=== PATIENT | male | born 1995 | race Caucasian/White ===

== ENCOUNTER 2016-09-20 14:12 | Inpatient (IN) | payer OTHER ==
[~2016-09-20] VITALS: Ht 172.7 cm; Wt 62.0 kg
[~2016-09-20 14:12] MED LIST: FLO1 PO; HYDR5TAB PO; INSU100C SQ; LANT3I SC; LEVO50TA74 PO
[2016-09-20] MEDS ORDERED: SODIUM CHLORIDE 0.9% 1L BAG IV* STA (14:41)
[2016-09-20] MEDS ORDERED: HYDROCORTISONE 100 MG INJ IV ONE (15:30)
[2016-09-20] MEDS ORDERED: INSULIN REGULAR, HUMAN 100 UNIT/1 ML 3ML VIAL IV ONE (15:30)
--- NOTE | 2016-09-20 15:30 | RADRPT ---
PROCEDURE: XR Chest. CLINICAL INDICATION: Sepsis TECHNIQUE: Single AP view of the chest were obtained COMPARISON: 08/13/2016 FINDINGS: The heart and mediastinum are within normal limits. The pulmonary vasculature are unremarkable. The aorta is unremarkable. There is no lung consolidation, pleural effusion or pneumothorax. There i s no acute osseous abnormality. IMPRESSION: No acute disease. RPTAT: AA .Kevin Rose MD, Date Time Electronically viewed and signed by .Kevin Rose MD, MD on 09/20/2016 15:30 .J/
[2016-09-20 15:33] LABS: BASOPHILS % 0.4 % (0.0-2.0); EOSINOPHILS # 0.3 10^3/ul (0.0-0.5); EOSINOPHILS % 3.7 % (0.0-7.0); HEMOGLOBIN 13.8 g/dl (14.0-18.0); LYMPHOCYTES # 2.3 10^3/ul (0.8-2.9); LYMPHOCYTES % 25.6 % (15.0-51.0); MEAN CORPUSCULAR HEMOGLOBIN 29.5 pg (29.0-33.0); MEAN CORPUSCULAR HGB CONC 33.6 g/dl (32.0-37.0); MEAN CORPUSCULAR VOLUME 87.6 fl (82.0-101.0); MEAN PLATELET VOLUME 10.7 fl (7.4-10.4); MONOCYTE # 0.7 10^3/ul (0.3-0.9); MONOCYTES % 7.9 % (0.0-11.0); NEUTROPHIL # 5.5 10^3/ul (1.6-7.5); NEUTROPHILS % 62.4 % (39.0-77.0); PLATELET COUNT 186 10^3/UL (140-440); RED BLOOD COUNT 4.68 10^6/ul (4.70-6.10); RED CELL DISTRIBUTION WIDTH 13.4 % (11.5-14.5); UNCORRECTED WBC 8.8 10^3/ul (4.8-10.8); WHITE BLOOD COUNT 8.8 10^3/ul (4.8-10.8)
[2016-09-20 15:35] LABS: INR 1.06; PROTIME 13.8 Sec (12.2-14.2); PT RATIO 1.1
[2016-09-20 15:36] LABS: PARTIAL THROMBOPLASTIN TIME 36.4 Sec (25.0-35.0)
[2016-09-20 15:41] LABS: CONDITION 1
[2016-09-20 15:45] LABS: ALBUMIN 4.6 g/dl (3.3-4.9)
[2016-09-20 15:46] LABS: CHLORIDE 97 mmol/L (97-110); POTASSIUM 4.6 mmol/L (3.5-5.1); SODIUM 137 mmol/L (135-144)
[2016-09-20 15:48] LABS: ALANINE AMINOTRANSFERASE 22 IU/L (13-69); ALBUMIN/GLOBULIN RATIO 1.21; ALKALINE PHOSPHATASE 99 IU/L (42-121); ANION GAP 28 (8-16); ASPARTATE AMINO TRANSFERASE 27 IU/L (15-46); BILIRUBIN,INDIRECT 0.7 mg/dl (0-1.1); BILIRUBIN,TOTAL 0.7 mg/dl (0.2-1.3); BLOOD UREA NITROGEN 27 mg/dl (7-20); CARBON DIOXIDE 17 mmol/L (21-31); CREATININE 1.11 mg/dl (0.61-1.24); TOTAL PROTEIN 8.4 g/dl (6.1-8.1)
[2016-09-20 15:49] LABS: CALCIUM 11.3 mg/dl (8.4-10.2); GLUCOSE 225 mg/dl (70-220)
[2016-09-20 16:04] LABS: TROPONIN-I < 0.010 ng/ml (0.00-0.12)
[2016-09-20 16:13] LABS: ADD UMIC NO; URINE BILIRUBIN (Dip) 1+ (NEGATIVE); URINE BLOOD (Dip) NEGATIVE (NEGATIVE); URINE COLOR LT. YELLOW (YELLOW); URINE GLUCOSE (Dip) NEGATIVE (NEGATIVE); URINE KETONES (Dip) 3+ (NEGATIVE); URINE LEUKOCYTE ESTERASE (Dip) NEGATIVE (NEGATIVE); URINE NITRITE (Dip) NEGATIVE (NEGATIVE); URINE TOTAL PROTEIN (Dip) NEGATIVE (NEGATIVE); URINE UROBILINOGEN (Dip) 0.2 E.U./dL (0.1-1.0)
[2016-09-20 16:25] LABS: AADO2 Arterial 1.5 mmHg (7.0-24.0); Allen Test ACCEPTAB; Arterial Base Excess -10.4 mmol/L (-3.0-3); Arterial COHb 0.3 % (0.0-3.0); Arterial Fraction of Oxyhgb 96.7 % (93.0-99.0); Arterial HCO3 15.3 mmol/L (22.0-26.0); Arterial MetHb 0.1 % (0.0-1.5); Arterial Total Hemglobin 12.2 g/dl (12.0-18.0); MODE ROOM AIR
[2016-09-20 16:28] LABS: ICTOTEST NEGATIVE (NEGATIVE)
--- NOTE | 2016-09-20 16:53 | ERA ---
ER Documentation Chief Complaint Date/Time DATE: 09/20/16 TIME: 16:53 Chief Complaint NAUSEA AND VOMITING X3 DAYS, ELEVATED BS, WEAKNESS, ABD PAIN HPI Patient is a 21-year-old male who has a history of Ashmore's disease and type 1 diabetes. Over the last 2 days he has had nausea, vomiting, elevated blood sugar. He has been unable to keep anything down including fluids. Mom states the last time he was like this he had DKA. He denies any fever, coughing, congestion, sore throat, otalgia, headache, dizziness, loss of consciousness, abdominal pain, diarrhea, dysuria, hematuria, abnormal rashes, abnormal bleeding , bruises. Nothing makes this better or worse. ROS All systems reviewed and are negative except as per history of present illness. Medications Home Meds Reported Medications Hydrocortisone* (Cortef*) 5 Mg Tab, 5 MG PO QID, #60 TAB 08/13/16 Levothyroxine Sodium* (Levothyroxine Sodium*) 50 Mcg Tablet, 50 MCG PO BEFORE BREAKFAST, #30 TAB 08/13/16 Insulin Lispro (Humalog) 100 Unit/1 Ml Cartridge, 7 UNIT SQ AC MEALS 08/13/16 Insulin Glargine* (Lantus*) 100 Unit/Ml Soln, 18 UNIT SC QAM, #1 VIAL 08/13/16 Discontinued Scripts Fludrocortisone Acetate (Florinef Acetate) 0.1 Mg Tablet, 0.1 MG PO QAM for 30 Days, #30 TAB 3 Refills Prov:JS EUCEDA MD 08/15/16 Allergies Allergies: Coded Allergies: No Known Allergy (Unverified , 09/20/16) PMhx/Soc History of Surgery: No Anesthesia Reaction: No Hx Neurological Disorder: No Hx Respiratory Disorders: No Hx Cardiac Disorders: No Hx Psychiatric Problems: No Hx Miscellaneous Medical Probl: Yes (DM, HYPOTHYROIDISM, Addisons disease) Hx Alcohol Use: No Hx Substance Use: No Hx Tobacco Use: No Smoking Status: Never smoker FmHx Family History: diabetes Physical Exam Vitals Vital Signs Date Time Temp Pulse Resp B/P Pulse Ox O2 Delivery O2 Flow Rate FiO2 09/20/16 17:00 98 22 95/53 100 Room Air 09/20/16 15:00 86 14 98/72 100 Room Air 09/20/16 14:17 97.5 101 18 98/67 99 Physical Exam Const: Well-developed well-nourished male lying on the bed appears ill but nontoxic Head: Atraumatic normocephalic Eyes: Normal Conjunctiva ENT: Normal External Ears, Nose and Mouth. Mucous membranes are dry Neck: Full range of motion..~ No meningismus. Resp: Clear to auscultation bilaterally Cardio: Regular rhythm, no murmurs, tachycardic Abd: Soft, non tender, non distended. Hypoactive bowel sounds Skin: No petechiae or rashes Back: No midline or flank tenderness Ext: No cyanosis, or edema Neur: Awake and alert oriented 3 Psych: Normal Mood and Affect Result Diagram: 09/20/16 1457 09/20/16 1635 Results 24 hrs Laboratory Tests Test 09/20/16 14:22 09/20/16 14:44 09/20/16 14:56 09/20/16 14:57 Bedside Glucose 232mg/dL 240mg/dL Arterial Blood HCO3 15.3mmol/L Arterial Blood Base Excess -10.4mmol/L Arterial Blood Oxygen Saturation 97.1mmHG Warner Test ACCEPTAB Arterial Blood Gas Puncture Site Right Radial Arterial Blood Carboxyhemoglobin 0.3% Arterial Blood Date Drawn 09/20/2016 4:17:23 PM Arterial Blood Methemoglobin 0.1% Arterial Blood pCO2 (Temp correct) 33.8mmhg Arterial Blood pH (Temp corrected) 7.275 Arterial Blood pO2 (Temp corrected) 107.8mmHG Blood Gas A-a O2 Differential 1.5mmHg Blood Gas Critical Value Read Back DR. BROWN Blood Gas Modality ROOM AIR Blood Gas Notified Time 09/20/2016 4:25:14 PM Blood Gas Notified Whom AT Blood Gas Specimen Source Blood arterial Blood Gas Temperature 37.0C FiO2 21.0% Oxyhemoglobin Percent 96.7% Total Hemoglobin 12.2g/dl Activated Partial Thromboplast Time 36.4Sec Alanine Aminotransferase (ALT/SGPT) 22IU/L Albumin 4.6g/dl Albumin/Globulin Ratio 1.21 Alkaline Phosphatase 99IU/L Anion Gap 28 Aspartate Amino Transf (AST/SGOT) 27IU/L Basophils # 0.010^3/ul Basophils % 0.4% Blood Morphology Comment Blood Urea Nitrogen 27mg/dl Calcium Level 11.3mg/dl Carbon Dioxide Level 17mmol/L Chloride Level 97mmol/L Creatinine 1.11mg/dl Direct Bilirubin 0.00mg/dl Eosinophils # 0.310^3/ul Eosinophils % 3.7% Globulin 3.80g/dl Glucose Level 225mg/dl Hematocrit 41.0% Hemoglobin 13.8g/dl INR International Normalized Ratio 1.06 Indirect Bilirubin 0.7mg/dl Lactic Acid Level 2.5mmol/L Lymphocytes # 2.310^3/ul Lymphocytes % 25.6% Mean Corpuscular Hemoglobin 29.5pg Mean Corpuscular Hemoglobin Concent 33.6g/dl Mean Corpuscular Volume 87.6fl Mean Platelet Volume 10.7fl Monocytes # 0.710^3/ul Monocytes % 7.9% Neutrophils # 5.510^3/ul Neutrophils % 62.4% Nucleated Red Blood Cells # 0.010^3/ul Nucleated Red Blood Cells % 0.0/100WBC Platelet Count 95015^3/UL Potassium Level 4.6mmol/L Prothrombin Time 13.8Sec Prothrombin Time Ratio 1.1 Red Blood Count 4.6810^6/ul Red Cell Distribution Width 13.4% Sodium Level 137mmol/L Total Bilirubin 0.7mg/dl Total Protein 8.4g/dl Troponin I < 0.010ng/ml White Blood Count 8.810^3/ul Test 09/20/16 15:39 09/20/16 16:30 09/20/16 16:35 09/20/16 16:39 Urine Bilirubin 1+ Urine Clarity CLEAR Urine Color LT. YELLOW Urine Glucose NEGATIVE% Urine Hemoglobin NEGATIVE Urine Ictotest NEGATIVE Urine Ketones 3+ Urine Leukocyte Esterase NEGATIVE Urine Nitrite NEGATIVE Urine Specific [place] 1.025 Urine Total Protein NEGATIVE Urine Urobilinogen 0.2 E.U./dL Urine pH 6.0 Lactic Acid Level 3.0mmol/L Anion Gap 26 Blood Urea Nitrogen 27mg/dl Calcium Level 11.1mg/dl Carbon Dioxide Level 17mmol/L Chloride Level 98mmol/L Creatinine 1.05mg/dl Glucose Level 219mg/dl Potassium Level 4.8mmol/L Sodium Level 136mmol/L Bedside Glucose 123mg/dL Current Medications Medications (Trade) Dose Ordered Sig/Carmina Route PRN Reason Start Time Stop Time Status Last Admin Dose Admin Sodium Chloride (NS) 1,920 ml BOLUS OVER 2 HOURS STAT IV* 09/20/16 14:41 09/20/16 14:43 DC 09/20/16 14:59 Hydrocortisone (Solu-Cortef) 100 mg ONCE ONCE IV 09/20/16 15:30 09/20/16 15:31 DC 09/20/16 15:59 Insulin Human Regular (Humulin R) 5 unit ONCE ONCE IV 09/20/16 15:30 09/20/16 15:31 DC 09/20/16 16:02 Procedures/MDM 1720: Patient appears to be feeling mildly improved. I will go ahead and consult his physician to admit him to the hospital Departure Diagnosis: Primary Impression: Nausea and vomiting Qualified Code: R11.2 - Non-intractable vomiting with nausea, unspecified vomiting type Additional Impressions: Adrenal insufficiency DKA (diabetic ketoacidoses) Qualified Code: E10.10 - Diabetic ketoacidosis without coma associated with type 1 diabetes mellitus Metabolic acidosis AIDA BROWN Sep 20, 2016 16:53
[2016-09-20 17:03] LABS: POTASSIUM 4.8 mmol/L (3.5-5.1)
[2016-09-20 17:05] LABS: CREATININE 1.05 mg/dl (0.61-1.24)
[2016-09-20 17:06] LABS: CALCIUM 11.1 mg/dl (8.4-10.2)
[2016-09-20] MEDS ORDERED: SOD CHLORIDE 0.9% 1,000 ML IV SCH (18:28)
[2016-09-20] MEDS: SOD CHLORIDE 0.9% 1,000 ML IV SCH (18:28)
[2016-09-20] MEDS ORDERED: DEXTROSE 50% 50 ML SYRINGE IV PRN ×2 (18:30)
[2016-09-20] MEDS ORDERED: NACL 0.9% 3 ML SYG IV SCH (18:30)
[2016-09-20] MEDS ORDERED: DOCUSATE SODIUM 100 MG CAP PO PRN (18:30)
[2016-09-20] MEDS ORDERED: LORAZEPAM 2 MG INJ IV PRN (18:30)
[2016-09-20] MEDS ORDERED: ALBUTEROL/IPRATROPIUM (NEB) 3 ML AMP HHN PRN (18:30)
[2016-09-20] MEDS ORDERED: NITROGLYCERIN (SL) 0.4 MG TAB SL PRN (18:30)
[2016-09-20] MEDS ORDERED: ACETAMINOPHEN 325 MG TAB PO PRN (18:30)
[2016-09-20] MEDS: ACCUCHECK XX SCH ×6 (18:30→23:56)
[2016-09-20] MEDS ORDERED: HYDROCODONE/APAP (5/325) TAB PO PRN (18:30)
[2016-09-20] MEDS ORDERED: hydrALAzine 20 MG INJ IV PRN (18:30)
[2016-09-20] MEDS ORDERED: morphine 2 MG INJ IV PRN (18:30)
[2016-09-20] MEDS ORDERED: POTASSIUM CHLORIDE 50 ML IVPB PRN (18:30)
[2016-09-20] MEDS ORDERED: NA PHOSPHATE/BIPHOS 133 ML ENEMA PR PRN (18:30)
[2016-09-20] MEDS ORDERED: ONDANSETRON 4 MG INJ IV PRN (18:30)
[2016-09-20] MEDS ORDERED: MAGNESIUM HYDROXIDE 30ML CUP PO PRN (18:30)
[2016-09-20] MEDS ORDERED: LACTATED RINGER'S 1,000 ML IV SCH (19:28)
[2016-09-20 19:45] LABS: POTASSIUM 4.5 mmol/L (3.5-5.1)
[2016-09-20 19:47] LABS: CREATININE 0.9 mg/dl (0.61-1.24)
[2016-09-20 19:48] LABS: CALCIUM 10.3 mg/dl (8.4-10.2)
[2016-09-20] MEDS: INSULIN REGULAR, HUMAN 100 UNIT in SOD CHLORIDE 0.9% 99 ML IV SCH ×6 (20:07→23:56)
[2016-09-20] MEDS: DEXTROSE 5%-0.9% NACL 1,000 ML IV SCH (20:08)
[2016-09-20] MEDS ORDERED: POTASSIUM CHLORIDE 10 MEQ in SOD CHLORIDE 0.9% 1,000 ML IV SCH (20:28)
[2016-09-20] MEDS: HYDROCORTISONE 5 MG TAB PO SCH (21:18)
[2016-09-20] MEDS: HEPARIN 5,000 UNIT/0.5 ML SYG SC SCH (21:18)
[2016-09-21] MEDS: ACCUCHECK XX SCH ×16 (00:30→15:30)
--- NOTE | 2016-09-21 00:49 | HP ---
DATE OF ADMISSION: 09/20/2016 TIME: 9:30 p.m. CHIEF COMPLAINT: Nausea, vomiting. HISTORY OF PRESENT ILLNESS: The patient is a 21-year-old male with a history of insulin-dependent d iabetes and Otoe's disease. The patient was diagnosed 1 year ago when he had an episode of DKA. The patient is on insulin normally. Patient began to feel nauseous, had several bouts of emesis, h as been feeling weak and tired , and had a hard time sleeping last night. His sugar was noted to be 400 at home. His mom did give him some insulin and brought to the ER, where his sugars were slight ly elevated at 225. He did have an anion gap acidosis and did have 3+ ketones in his urine. The pa dusty was started on insulin drip and so far he is feeling better. 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 PAST SURGICAL HISTORY: Denies. HOME MEDICATIONS: 1. Humalog 7 units with meals. 2. Cortef 5 mg q.i.d. 3. Lantus 18 units q.a.m. 4. Synthroid 50 before breakfast. ALLERGIES: NO KNOWN DRUG ALLERGIES. FAMILY HISTORY: Denies. SOCIAL HISTORY: Denies alcohol, tobacco, or drug abuse. REVIEW OF SYSTEMS: A 12-point review of systems negative except that discussed in HPI. PHYSICAL EXAMINATION: VITAL SIGNS: Temperature 97.5, pulse is 110, respiratory rate 16, BP is 110/65, saturation 100% on room air. GENERAL: In no acute distress, alert and oriented. HEENT: Normocephalic, atraumatic. LUNGS: Clear to auscultation. CARDIOVASCULAR: Tachycardic. ABDOMEN: Nondistended, nontender, soft. EXTREMITIES: No clubbing, cyanosis, or edema. LABORATORIES: White count is 8.8, hemoglobin 16.8, platelets 186,000. Chemistry: Sodium is 139, p otassium is 4.5, chloride is 105, anion gap is 23, BUN 22, creatinine is 0.9, glucose 104, calcium 7 .3. ABG: pH is 7.275, CO2 is 30.8, bicarbonate is 16.3. Urine 2+ ketones, otherwise normal. Ther e is also 1+ bilirubin. DIAGNOSTICS: Chest x-ray shows no acute disease. ASSESSMENT AND PLAN: 1. Diabetic ketoacidosis. The patient's sugars have improved, but he continues to have an anion ga p. Admit to ICU. Treat with insulin drip and IV fluids. Will give D5 NS once sugars are below 250 , and he has a persistent anion gap. Will get an endocrinology consultation. 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 3. Hypothyroidism. Continue home Synthroid. 4. Prophylaxis. Heparin. Dictated By: EVAN URRUTIA/KENTON Conf#: [id number] DID#: [id number]
[2016-09-21] MEDS: INSULIN REGULAR, HUMAN 100 UNIT in SOD CHLORIDE 0.9% 99 ML IV SCH ×2 (02:05)
[2016-09-21] MEDS: SOD CHLORIDE 0.9% 1,000 ML IV SCH (03:46)
[2016-09-21 06:01] LABS: BASOPHILS % 0.2 % (0.0-2.0); EOSINOPHILS # 0.1 10^3/ul (0.0-0.5); HEMOGLOBIN 10.9 g/dl (14.0-18.0); LYMPHOCYTES # 2.6 10^3/ul (0.8-2.9); LYMPHOCYTES % 28.7 % (15.0-51.0); MEAN CORPUSCULAR HGB CONC 35.1 g/dl (32.0-37.0); MEAN CORPUSCULAR VOLUME 85.7 fl (82.0-101.0); MEAN PLATELET VOLUME 9.8 fl (7.4-10.4); MONOCYTES % 10.9 % (0.0-11.0); NEUTROPHIL # 5.4 10^3/ul (1.6-7.5); NEUTROPHILS % 59.2 % (39.0-77.0); PLATELET COUNT 178 10^3/UL (140-440); RED BLOOD COUNT 3.62 10^6/ul (4.70-6.10); RED CELL DISTRIBUTION WIDTH 13.6 % (11.5-14.5); UNCORRECTED WBC 9.2 10^3/ul (4.8-10.8); WHITE BLOOD COUNT 9.2 10^3/ul (4.8-10.8)
[2016-09-21 06:10] LABS: POTASSIUM 4.1 mmol/L (3.5-5.1)
[2016-09-21 06:12] LABS: CREATININE 0.93 mg/dl (0.61-1.24)
[2016-09-21 06:13] LABS: CALCIUM 9.8 mg/dl (8.4-10.2); PHOSPHORUS 3.8 mg/dl (2.5-4.9)
[2016-09-21 06:14] LABS: MAGNESIUM 1.1 mg/dl (1.7-2.5)
[2016-09-21 06:15] LABS: CONDITION 1
[2016-09-21 06:18] LABS: CHOLESTEROL 70 mg/dl (100-200)
[2016-09-21 06:19] LABS: CHOL/HDL RATIO 2.8 RATIO; HDL CHOLESTEROL 25 mg/dl (30-63); TRIGLYCERIDES 52 mg/dl (0-149)
[2016-09-21] MEDS: HYDROCORTISONE 5 MG TAB PO SCH (06:28)
[2016-09-21] MEDS: LEVOTHYROXINE 50 MCG TAB PO SCH (06:28)
[2016-09-21] MEDS: DEXTROSE 5%-0.9% NACL 1,000 ML IV SCH ×2 (06:28→16:30)
[2016-09-21 06:51] LABS: THYROID STIMULATING HORMONE < 0.015 MIU/L (0.465-4.680)
[2016-09-21] MEDS ORDERED: INSULIN GLARGINE [LANtus] 3 ML PEN SC ONE (07:00)
[2016-09-21] MEDS: SOD CHLORIDE 0.45% 1,000 ML IV SCH ×2 (07:31→18:11)
[2016-09-21] MEDS: INSULIN ASPART [NOVOLOG] 3 ML PEN SC SCH ×6 (07:52→21:00)
[2016-09-21] MEDS ORDERED: INSULIN ASPART [NOVOLOG] 3 ML PEN SC SCH ×2 (08:00→17:55)
[2016-09-21 08:42] VITALS: TEMP 98
[2016-09-21] MEDS ORDERED: INSULIN GLARGINE [LANtus] 3 ML PEN SC SCH (09:00)
[2016-09-21 10:00] VITALS: BP 103/73; PULSE 99; RESP 18; Ht 172.7 cm; Wt 62.0 kg
[2016-09-21] MEDS: HEPARIN 5,000 UNIT/0.5 ML SYG SC SCH ×2 (10:06→21:10)
--- NOTE | 2016-09-21 10:42 | CONS ---
Date/Time of Note Date/Time of Note DATE: 09/21/16 TIME: 10:34 Assessment/Plan Assessment/Plan Problems: (1) DKA (diabetic ketoacidoses) Status: Resolved Qualifiers: Qualified Code: E10.10 - Diabetic ketoacidosis without coma associated with type 1 diabetes mellitus (2) Metabolic acidosis Status: Resolved (3) Nausea and vomiting Status: Resolved Qualifiers: Qualified Code: R11.2 - Non-intractable vomiting with nausea, unspecified vomiting type (4) Autoimmune polyglandular failure Status: Chronic Comment: See separate components below (5) Adrenal insufficiency Status: Chronic Comment: Currently on hydrocortisone 5 mg qid. At home supposed to be on hydrocortisone 5 mg tid. Will try increasing this slightly and weighting it for morning. Change to 15 mg qam and 7.5 mg qpm and reeval. (6) Type 1 diabetes mellitus without complications Status: Chronic Comment: Because pt. w/ higher dose of hydrocortisone may be more resistant to insulin and/or hypoglycemia. Will change lantus to 16 qam, Novolog to 8 w/ breakfast, 5 w/ lunch, 6 w/ dinner. If still having lows, will reduce. Pt. encouraged to contact endo before changing insulin doses. (7) Hypothyroidism Status: Chronic Comment: Cont. 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 pain and BG in the 400's at home. Pt. admits that he was having frequent hypoglycemia down to 40's and 50's. Notes that his father was mad at him b/c of frequent lows. Pt. decided to self-reduce his insulin doses and cut his insulin in half. On arrival to ER, mild DKA confirmed w/ BG in 200's, CO2 17, open AG and positive ketones. Pt. placed on insulin drip and DKA resolved in ER. Now admitted. 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 He is single but has a significant other. He splits time between living with his mother and looking at his father's residence. Alcohol Use: none Smoking Status: Never smoker Drug Use: none Exam/Review of Systems Vital Signs Vitals VS - Last 72 Hours, by Label Date Time Temp Pulse Resp B/P Pulse Ox O2 Delivery O2 Flow Rate FiO2 09/21/16 08:42 98.0 96 18 123/76 99 Room Air 09/21/16 07:30 91 16 104/63 100 Room Air 09/21/16 06:23 97 16 138/120 100 Room Air 09/21/16 05:00 97 14 97/43 100 Room Air 09/21/16 04:00 100 16 105/60 100 Room Air 09/21/16 03:00 103 16 105/63 100 Room Air 09/21/16 02:00 110 14 96/58 100 Room Air 09/21/16 01:00 108 16 104/73 100 Room Air 09/21/16 00:00 104 16 98/64 100 Room Air 09/20/16 23:00 105 14 96/64 99 Room Air 09/20/16 22:00 113 16 96/68 100 Room Air 09/20/16 21:00 110 16 110/65 100 Room Air 09/20/16 20:00 106 14 107/61 100 Room Air 09/20/16 19:00 96 16 97/57 100 Room Air 09/20/16 18:00 97 14 104/62 100 Room Air 09/20/16 17:00 98 22 95/53 100 Room Air 09/20/16 15:00 86 14 98/72 100 Room Air 09/20/16 14:17 97.5 101 18 98/67 99 Vital Signs Date Time Temp Pulse Resp B/P Pulse Ox O2 Delivery O2 Flow Rate FiO2 09/21/16 08:42 98.0 96 18 123/76 99 Room Air Exam Constitutional: alert, oriented, well developed Psych: nl mood/affect, no complaints Eyes: EOMI, PERRL, nl conjunctiva, nl lids, nl sclera ENMT: mucosa pink and moist, nl external ears & nose Neck: non-tender, supple, No bruits, No masses, No thyromegaly Respiratory: clear to auscultation, normal air movement Cardiovascular: nl pulses, regular rate and rhythm, No edema, No murmurs/extra sounds, No rub Gastrointestinal: bowel sounds, nl liver, spleen, non-tender, soft, No mass, No rebound or guarding Musculoskeletal: nl extremities to inspection Extremities: normal pulses, No clubbing, No cyanosis, No edema Neurological: SALES ADVISORY MANAGER II-XII intact, nl mental status, nl speech, nl strength Additional Comments Bedside Glucose - 72 Hours Test 09/20/16 14:22 09/20/16 14:56 09/20/16 16:39 09/20/16 19:37 Bedside Glucose 232mg/dL (70-220) H 240mg/dL (70-220) H 123mg/dL (70-220) 108mg/dL (70-220) Test 09/20/16 20:53 09/20/16 21:55 09/20/16 22:52 09/20/16 23:54 Bedside Glucose 135mg/dL (70-220) 137mg/dL (70-220) 122mg/dL (70-220) 117mg/dL (70-220) Test 09/21/16 01:00 09/21/16 02:01 09/21/16 03:40 09/21/16 04:02 Bedside Glucose 92mg/dL (70-220) 83mg/dL (70-220) 60mg/dL (70-220) L 115mg/dL (70-220) Test 09/21/16 04:17 09/21/16 05:17 09/21/16 06:22 09/21/16 06:45 Bedside Glucose 93mg/dL (70-220) 78mg/dL (70-220) 48mg/dL (70-220) *L 141mg/dL (70-220) Test 09/21/16 07:34 09/21/16 09:59 Bedside Glucose 113mg/dL (70-220) 135mg/dL (70-220) Results Result Diagram: 09/21/16 0534 09/21/16 0534 Results 24 hrs Laboratory Tests Test 09/20/16 14:22 09/20/16 14:44 09/20/16 14:56 09/20/16 14:57 Bedside Glucose 232 H 240 H Arterial Blood HCO3 15.3 L Arterial Blood Base Excess -10.4 L Arterial Blood Oxygen Saturation 97.1 Warner Test ACCEPTAB Arterial Blood Gas Puncture Site Right Radial Arterial Blood Carboxyhemoglobin 0.3 Arterial Blood Date Drawn 09/20/2016 4:17:23 PM Arterial Blood Methemoglobin 0.1 Arterial Blood pCO2 (Temp correct) 33.8 L Arterial Blood pH (Temp corrected) 7.275 *L Arterial Blood pO2 (Temp corrected) 107.8 H Blood Gas A-a O2 Differential 1.5 L Blood Gas Critical Value Read Back DR. BROWN Blood Gas Modality ROOM AIR Blood Gas Notified Time 09/20/2016 4:25:14 PM Blood Gas Notified Whom AT Blood Gas Specimen Source Blood arterial Blood Gas Temperature 37.0 FiO2 21.0 Oxyhemoglobin Percent 96.7 Total Hemoglobin 12.2 Activated Partial Thromboplast Time 36.4 H Alanine Aminotransferase (ALT/SGPT) 22 Albumin 4.6 Albumin/Globulin Ratio 1.21 Alkaline Phosphatase 99 Anion Gap 28 H Aspartate Amino Transf (AST/SGOT) 27 Basophils # 0.0 Basophils % 0.4 Blood Morphology Comment Blood Urea Nitrogen 27 H Calcium Level 11.3 H Carbon Dioxide Level 17 L Chloride Level 97 Creatinine 1.11 Direct Bilirubin 0.00 Eosinophils # 0.3 Eosinophils % 3.7 Globulin 3.80 H Glucose Level 225 H Hematocrit 41.0 #L Hemoglobin 13.8 #L INR International Normalized Ratio 1.06 Indirect Bilirubin 0.7 Lactic Acid Level 2.5 H Lymphocytes # 2.3 Lymphocytes % 25.6 Mean Corpuscular Hemoglobin 29.5 Mean Corpuscular Hemoglobin Concent 33.6 Mean Corpuscular Volume 87.6 Mean Platelet Volume 10.7 H Monocytes # 0.7 Monocytes % 7.9 Neutrophils # 5.5 Neutrophils % 62.4 Nucleated Red Blood Cells # 0.0 Nucleated Red Blood Cells % 0.0 Platelet Count 186 # Potassium Level 4.6 Prothrombin Time 13.8 Prothrombin Time Ratio 1.1 Red Blood Count 4.68 #L Red Cell Distribution Width 13.4 Sodium Level 137 Total Bilirubin 0.7 Total Protein 8.4 H Troponin I < 0.010 White Blood Count 8.8 # Test 09/20/16 15:39 09/20/16 16:30 09/20/16 16:35 09/20/16 16:39 Urine Bilirubin 1+ H Urine Clarity CLEAR Urine Color LT. YELLOW Urine Glucose NEGATIVE Urine Hemoglobin NEGATIVE Urine Ictotest NEGATIVE Urine Ketones 3+ H Urine Leukocyte Esterase NEGATIVE Urine Nitrite NEGATIVE Urine Specific [place] 1.025 Urine Total Protein NEGATIVE Urine Urobilinogen 0.2 E.U./dL Urine pH 6.0 Lactic Acid Level 3.0 H Anion Gap 26 H Blood Urea Nitrogen 27 H Calcium Level 11.1 H Carbon Dioxide Level 17 L Chloride Level 98 Creatinine 1.05 Glucose Level 219 Potassium Level 4.8 Sodium Level 136 Bedside Glucose 123 Test 09/20/16 18:50 09/20/16 18:55 09/20/16 19:37 09/20/16 20:53 Anion Gap 23 H Blood Urea Nitrogen 22 H Calcium Level 10.3 H Carbon Dioxide Level 16 L Chloride Level 105 Creatinine 0.90 Fasting Glucose 104 Free Thyroxine 1.99 Glucose Level 104 # Hemoglobin A1c 9.2 H Lactic Acid Level 1.0 Potassium Level 4.5 Sodium Level 139 Phosphorus Level 3.4 Bedside Glucose 108 135 Test 09/20/16 21:55 09/20/16 22:52 09/20/16 23:54 09/21/16 01:00 Bedside Glucose 137 122 117 92 Test 09/21/16 02:01 09/21/16 03:40 09/21/16 04:02 09/21/16 04:17 Bedside Glucose 83 60 L 115 93 Test 09/21/16 05:17 09/21/16 05:34 09/21/16 06:22 09/21/16 06:45 Bedside Glucose 78 48 *L 141 Anion Gap 15 # Basophils # 0.0 Basophils % 0.2 Blood Urea Nitrogen 21 H Calcium Level 9.8 Carbon Dioxide Level 21 Chloride Level 108 Cholesterol Level 70 L Cholesterol/HDL Ratio 2.8 Creatinine 0.93 Eosinophils # 0.1 Eosinophils % 1.0 Glucose Level 62 #L HDL Cholesterol 25 L Hematocrit 31.0 #L Hemoglobin 10.9 #L Hemoglobin A1c 9.1 H LDL Cholesterol, Calculated 35 Lymphocytes # 2.6 Lymphocytes % 28.7 Magnesium Level 1.1 L Mean Corpuscular Hemoglobin 30.0 Mean Corpuscular Hemoglobin Concent 35.1 Mean Corpuscular Volume 85.7 Mean Platelet Volume 9.8 Monocytes # 1.0 H Monocytes % 10.9 Neutrophils # 5.4 Neutrophils % 59.2 Nucleated Red Blood Cells # 0.0 Nucleated Red Blood Cells % 0.0 Phosphorus Level 3.8 Platelet Count 178 Potassium Level 4.1 Red Blood Count 3.62 #L Red Cell Distribution Width 13.6 Sodium Level 140 Thyroid Stimulating Hormone (TSH) < 0.015 L Triglycerides Level 52 White Blood Count 9.2 Test 09/21/16 07:34 09/21/16 09:59 Bedside Glucose 113 135 Medications Medications Current Medications Ondansetron HCl (Zofran Inj) 4 mg Q6H PRN IV NAUSEA AND/OR VOMITING; Start 09/20 at 18:30 Acetaminophen (Tylenol Tab) 650 mg Q6H PRN PO PAIN LEVEL 1-3 OR FEVER; Start at 18:30 Acetaminophen/ Hydrocodone Bitart (Ulman (5/325)) 1 tab Q6H PRN PO MODERATE PAIN LEVEL 4-6; Start 09/20/16 at 18:30 Morphine Sulfate (morphine) 2 mg Q4H PRN IV SEVERE PAIN LEVEL 7-10; Start at 18:30 Docusate Sodium (Colace) 100 mg Q12H PRN PO CONSTIPATION; Start 09/20/16 at 18: 30 Magnesium Hydroxide (Milk Of Mag) 30 ml DAILY PRN PO CONSTIPATION; Start at 18:30 Sodium Biphosphate/ Sodium Phosphate (Fleet Enema) 133 ml DAILY PRN [place] CONSTIPATION; Start 09/20/16 at 18:30 Heparin Sodium (Porcine) (Heparin (5000 Units/0.5 ml)) 5,000 unit Q12 SC Last administered on 09/21/16t 10:06; Admin Dose 5,000 UNIT; Start 09/20/16 at 21:00 Lorazepam 0.5 mg 0.5 mg Q6H PRN IV ANXIETY; Start 09/20/16 at 18:30 Sodium Chloride (NS) 1,000 ml @ 100 mls/hr Q10H IV ; Start 09/20/16 at 18:28 Hydralazine HCl (Apresoline) 10 mg Q6H PRN IV ELEVATED BLOOD PRESSURE; Start at 18:30 Nitroglycerin (Nitroglycerin (Sl Tab) 0.4 Mg) 1 tab Q5M PRN SL ANGINA; Start at 18:30 Dextrose (D50w Syringe) 50 ml Q15M PRN IV For BS 50 or less Last administered on 09/21/16 06:28; Admin Dose 50 ML; Start 09/20/16 at 18:30 Dextrose (D50w Syringe) 25 ml Q15M PRN IV BS between 50-70 Last administered on 09/21/16 03:44; Admin Dose 25 ML; Start 09/20/16 at 18:30 Diagnostic Test (Pha) 1 ea 1 ea Q1H XX Last administered on 09/21/16 08:30; Admin Dose 1 EA; Start 09/20/16 at 18:30 Dextrose/Sodium Chloride 1,000 ml @ 100 mls/hr Q10H IV Last administered on 06:28; Admin Dose 100 MLS/HR; Start 09/20/16 at 20:30 Sodium Chloride (1/2 NS) 1,000 ml @ 100 mls/hr Q10H IV Last administered on 07:31; Admin Dose 100 MLS/HR; Start 09/21/16 at 07:00 Hydrocortisone (Cortef) 15 mg AM PO ; Start 09/22/16 at 09:00; Status UNV Insulin Glargine (Lantus) 16 unit QAM SC ; Start 09/22/16 at 09:00 Diagnostic Test (Pha) (Accucheck) 1 ea 02 XX ; Start 09/22/16 at 02:00 CARO CARRERA MD Sep 21, 2016 10:42
[2016-09-21] MEDS ORDERED: MAGNESIUM SULFATE 4 GM/100 ML 100 ML IVPB ONE (11:30)
[2016-09-21] MEDS ORDERED: HYDROCORTISONE 5 MG TAB PO SCH (17:25)
[2016-09-21 19:55] VITALS: BP 109/60; RESP 18
[2016-09-22] MEDS ORDERED: ACCUCHECK XX SCH (02:00)
[2016-09-22] MEDS: SOD CHLORIDE 0.45% 1,000 ML IV SCH ×2 (03:01→13:00)
[2016-09-22 05:45] LABS: MAGNESIUM 1.4 mg/dl (1.7-2.5)
[2016-09-22 05:50] LABS: BASOPHILS % 0.3 % (0.0-2.0); EOSINOPHILS # 0.2 10^3/ul (0.0-0.5); EOSINOPHILS % 3.5 % (0.0-7.0); HEMATOCRIT 28.3 % (42.0-52.0); HEMOGLOBIN 9.7 g/dl (14.0-18.0); LYMPHOCYTES # 3.3 10^3/ul (0.8-2.9); LYMPHOCYTES % 54.9 % (15.0-51.0); MEAN CORPUSCULAR HEMOGLOBIN 30.1 pg (29.0-33.0); MEAN CORPUSCULAR HGB CONC 34.2 g/dl (32.0-37.0); MEAN CORPUSCULAR VOLUME 88.1 fl (82.0-101.0); MEAN PLATELET VOLUME 10.7 fl (7.4-10.4); MONOCYTE # 0.5 10^3/ul (0.3-0.9); MONOCYTES % 7.7 % (0.0-11.0); NEUTROPHILS % 33.6 % (39.0-77.0); PLATELET COUNT 153 10^3/UL (140-440); RED BLOOD COUNT 3.21 10^6/ul (4.70-6.10); RED CELL DISTRIBUTION WIDTH 13.6 % (11.5-14.5); UNCORRECTED WBC 5.9 10^3/ul (4.8-10.8); WHITE BLOOD COUNT 5.9 10^3/ul (4.8-10.8)
[2016-09-22 05:57] LABS: CONDITION 1; LH ANALYZER COMMENTS 1
[2016-09-22] MEDS ORDERED: PANTOPRAZOLE (EC) 40 MG TAB PO SCH (06:00)
[2016-09-22] MEDS: LEVOTHYROXINE 50 MCG TAB PO SCH (06:33)
[2016-09-22 07:21] LABS: POTASSIUM 4.3 mmol/L (3.5-5.1)
[2016-09-22 07:23] LABS: CREATININE 0.71 mg/dl (0.61-1.24)
[2016-09-22 07:24] LABS: CALCIUM 9.1 mg/dl (8.4-10.2)
[2016-09-22] MEDS ORDERED: INSULIN ASPART [NOVOLOG] 3 ML PEN SC SCH (07:50)
[2016-09-22] MEDS: INSULIN ASPART [NOVOLOG] 3 ML PEN SC SCH ×3 (07:50→12:54)
[2016-09-22 08:35] VITALS: BP 127/67; RESP 18
[2016-09-22] MEDS: HEPARIN 5,000 UNIT/0.5 ML SYG SC SCH (08:59)
[2016-09-22] MEDS ORDERED: HYDROCORTISONE 5 MG TAB PO SCH (09:00)
[2016-09-22] MEDS ORDERED: INSULIN GLARGINE [LANtus] 3 ML PEN SC SCH ×2 (09:00)
--- NOTE | 2016-09-22 09:05 | PN ---
DATE: 09/21/2016 SUBJECTIVE: The patient now tolerating p.o. diet. Sugars are improved. Seen by endocrinology team today. No acute events overnight. OBJECTIVE: VITAL SIGNS: Stable. GENERAL: The patient is lying in bed, answering questions appropriately, in no acute distress. HEENT: Pupils equal, round, react to light. Extraocular muscles intact. NECK: Supple, no thyromegaly. LUNGS: Clear to auscultation bilaterally. CARDIOVASCULAR: S1, S2 heard. No rubs or gallops. ABDOMEN: Soft, nontender, nondistended. Normal bowel sounds. No rebound or guarding. MUSCULOSKELETAL: No lower extremity bilaterally. NEUROLOGIC: No focal deficits. LABORATORY DATA: CBC is normal. The basic metabolic panel was normal. The magnesium is low at 1.1 . ASSESSMENT AND PLAN: A 21-year-old male who presents with DKA and history of Bakari's disease and hypothyroidism. 1. Diabetic ketoacidosis. Again sugars have resolved, gap is closed. He has been switched over to subcutaneous insulin, follow up endocrinology recommendations as well. Consider patient educator consult A1c is 9.1 as well. We will check fingersticks as scheduled. 2. Bakari's disease. Appreciate endocrinology consult. Continue steroid medications as doses hav e been adjusted by endocrinology team. Monitor sugars carefully as well. 3. Metabolic acidosis, resolved, related to #1. Continue to monitor for now. Check basic metaboli c panel every morning. 4. Hypothyroidism, appears to be chronic condition. Continue Synthroid at current dose. 5. Deep venous thrombosis prophylaxis. Heparin subcutaneously. Dictated By: MONTY MARK Conf#: [id number] DID#: [id number]
[2016-09-22 11:20] LABS: ANISOCYTOSIS 1+
--- NOTE | 2016-09-22 12:51 | PDOCDIS ---
Discharge Instructions DIAGNOSIS Discharge Diagnosis: DKA CONDITION Patient Condition: Stable HOME CARE INSTRUCTIONS: Special Diet: 1800 CalorieCARB CONTROLLED/DIABETIC DIET ACTIVITY: Activity Restrictions: Slowly Increase Activity FOLLOW UP/APPOINTMENTS Appointments f/u with DR Hunter in 1 week Followup with your primary doctor within the next 1-2 weeks. If you don't have one please let someone know, we can give you resources that may help you pick one. You may also call your insurance company to assign one to you. Review your medication list with your nurse before leaving and if you need new prescriptions please let your nurse know. I may have made changes to your home medications or given you new prescriptions , please let your primary doctor know as well. Stay compliant with your medications and report any side effects to your PCP or pharmacist. Return to the ER if you have any concerns and cannot reach your doctors or call your insurance company, they usually have a nurse that can help you. LUCIANA GUZMAN Sep 22, 2016 12:51
[2016-09-22] MEDS ORDERED: DOCU-144 PO (12:56)
[2016-09-22] MEDS ORDERED: HYDR5TAB2 PO (12:56)
[2016-09-22] MEDS ORDERED: INSU100C SQ ×3 (12:56)
[2016-09-22] MEDS ORDERED: HYDR5TAB PO (12:56)
[2016-09-22] MEDS ORDERED: PANT40TA4 PO (12:56)
[2016-09-22] MEDS ORDERED: LANT3I SC (12:56)
[2016-09-22 16:17] LABS: MICROALBUMIN 1.3 mg/dL
--- NOTE | 2016-09-24 13:02 | DS ---
DATE OF ADMISSION: 09/20/2016 DATE OF DISCHARGE: 09/22/2016 PRESENTING COMPLAINT: This is a 21-year-old male with nausea and vomiting. ADMISSION DIAGNOSES: 1. Diabetes ketoacidosis. 2. Bakari disease. 3. Hypothyroidism. CONSULTS ON THE CASE: Dr. Ty Garduno who was covering for the patient's video production specialist, Dr. Van Hunter. INTERVENTIONS: The patient was in the intensive care unit on the insulin drip and this has been wea evgeny off. The patient is currently on subcutaneous insulin at this time. The patient, however, repo rts doing well and feeling well and he is ____ to discharge, if cleared by endocrinology. HOSPITAL COURSE: Full details are available in the chart for review. In summary, this 21-year-old male has been here a few times for diabetic ketoacidosis. 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 Because he was having frequent hypoglycemia, the patient kimmy d he self reduced his insulin doses and ended up in DKA. At this time, his DKA has resolved. His g ap is closed. He has been commenced on a diet and subcutaneous insulin and seems to be tolerating c urrent dosages very well. He is doing well and we are awaiting endocrinology consult for ____ clear ance and ____ will be discharged home with outpatient followup with his own video production specialist, Dr. Jimena lewis. DISCHARGE DIAGNOSES: A 21-year-old male who came in with nausea and vomiting. Managed for the foll owin. Diabetes ketoacidosis that is now resolved. 2. 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 3. Probable noncompliance with therapy. 4. Hypomagnesemia, replaced. 5. Normocytic normochromic anemia, likely secondary to chronic disease. DISCHARGE MEDICATIONS: Will be as follows: 1. Colace 100 mg p.o. b.i.d. 2. Hydrocortisone 50 mg in the morning and 7.5 mg before dinner. 3. NovoLog 5 units with lunch, 6 units with dinner, and 8 units with breakfast. 4. Lantus ____ units every morning. 5. Levothyroxine 50 mg before breakfast. 6. Protonix 40 mg p.o. daily just for about the next 2 weeks. DISPOSITION: Will be to home. RECOMMENDED DIET: 1800 ADA diet. ACTIVITIES: As tolerated. FOLLOWUP: He is recommended to follow up with his own video production specialist within the week as well as pr [facility] care physician in 1 to 2 weeks. I spoke with the patient in detail. The patient has multiple comorbidities, he is young, which pred isposes him to depression. We spoke about ____ and we spoke about his ____ dreams and his aspiratio ns. The patient was encouraged to remain compliant with therapy and he was also counseled on the __ __ to let his comorbidities keep him down. We had an extensive discussion and the patient seems to be in better spirits afterwards. He was recommended to get a primary care physician and keep in steve se contact with the doctor and ____ if he has any more ____. He verbalized understanding and agreem ent with this plan. At this point, discharge is pending endocrinologic clearance. Dictated By: LUCIANA GUZMAN MD BA/NTS Conf#: [id number] DID#: [id number] CC: EVAN DUONG MD;*EndCC*
== END 2016-09-22 14:40 | disposition left against medical advice (07) | DRG 638 ==
LOC: E/R 14:12 → MS1 22:11
PROVIDERS: ADMIT Internal Medicine; ATTEND Internal Medicine
DX: E10.10 Type 1 diabetes mellitus with ketoacidosis without coma (principal); E27.1 Primary adrenocortical insufficiency; E03.9 Hypothyroidism, unspecified; E31.0 Autoimmune polyglandular failure; E83.42 Hypomagnesemia; D63.8 Anemia in other chronic diseases classified elsewhere; Z79.4 Long term (current) use of insulin; Z91.19 Patient's noncompliance with other medical treatment and regimen
CPT/HCPCS: 36600; 71010; 80048; 80053; 80061; 81003; 82043; 82803; 82947; 82962; 83036; 83605; 83735; 84100; 84439; 84443; 84484; 85025; 85610; 85730; 87040; 87086; 93005; J1720; J1815; J3480; J7030; J7042; J7120

== ENCOUNTER 2016-10-24 11:33 | Inpatient (IN) | payer OTHER ==
[~2016-10-24] VITALS: Ht 175.3 cm; Wt 62.5 kg
[~2016-10-24 11:33] MED LIST changes: +DOCU-144 PO; -FLO1 PO; +HYDR5TAB2 PO; +PANT40TA4 PO
[2016-10-24] MEDS ORDERED: SOD CHLORIDE 0.9% 2,000 ML IV STA (11:42)
[2016-10-24] MEDS ORDERED: LACTATED RINGER'S 1,000 ML IV STA (11:42)
[2016-10-24] MEDS ORDERED: ONDANSETRON 4 MG INJ IV STA ×2 (11:47→12:17)
[2016-10-24 12:05] LABS: ADD SCAN DIFF NO
[2016-10-24 12:11] LABS: MODE ROOM AIR; MetHgb Venous 0.2 %; Sample Type Blood venous; Venous COHb 0.4 %; Venous Fraction OxyHgb 92.7 %; Venous Total Hemglobin 15.8 g/dl
[2016-10-24 12:19] LABS: POTASSIUM 5.2 mmol/L (3.5-5.1)
[2016-10-24 12:22] LABS: BASOPHILS % 0.2 % (0.0-2.0); EOSINOPHILS # 0.4 10^3/ul (0.0-0.5); EOSINOPHILS % 3.7 % (0.0-7.0); HEMOGLOBIN 15.2 g/dl (14.0-18.0); LYMPHOCYTES % 49.6 % (15.0-51.0); MEAN CORPUSCULAR HGB CONC 34.5 g/dl (32.0-37.0); MEAN PLATELET VOLUME 12.3 fl (7.4-10.4); NEUTROPHIL # 3.7 10^3/ul (1.6-7.5); NEUTROPHILS % 36.3 % (39.0-77.0); PLATELET COUNT 294 10^3/UL (140-415); RED BLOOD COUNT 5.24 10^6/ul (4.70-6.10); RED CELL DISTRIBUTION WIDTH 11.9 % (11.5-14.5); WHITE BLOOD COUNT 10.1 10^3/ul (4.8-10.8)
[2016-10-24 12:23] LABS: CALCIUM 10.9 mg/dl (8.4-10.2)
[2016-10-24 12:25] LABS: CREATININE 0.86 mg/dl (0.61-1.24)
[2016-10-24] MEDS ORDERED: INSU100C SQ (12:25)
[2016-10-24] MEDS ORDERED: LANT3I SC (12:26)
[2016-10-24] MEDS ORDERED: INSULIN REGULAR, HUMAN 100 UNIT in SOD CHLORIDE 0.9% 99 ML IV STA ×4 (12:40→16:08)
--- NOTE | 2016-10-24 13:16 | ERA ---
ER Documentation Chief Complaint Date/Time DATE: 10/24/16 TIME: 13:12 Chief Complaint HYPERGLYCEMIA VOMITING HPI Patient is a 21-year-old female with diabetes who presents with vomiting. His vomiting started last night. This vomiting was worse today. He said that he has had diabetic ketoacidosis in the past and that this feels worse than those episodes. He has had no fevers. He said that he took insulin last night but none today. He says that he does see Dr. Hunter for diabetes management. Upon review of old medical records the patient has had multiple visits to the ER with admissions for diabetic ketoacidosis. ROS All systems reviewed and are negative except as per history of present illness. Medications Home Meds Active Scripts Pantoprazole* (Pantoprazole*) 40 Mg Tablet., 40 MG PO DAILY@06 for 14 Days Prov:LUCIANA GUZMAN. 09/22/16 Hydrocortisone (Hydrocortisone) 5 Mg Tablet, 7.5 MG PO AC DINNER for 30 Days, TAB Prov:LUCIANA GUZMAN. 09/22/16 Hydrocortisone* (Cortef*) 5 Mg Tab, 15 MG PO QAM for 30 Days, TAB Prov:LUCIANA GUZMAN. 09/22/16 Reported Medications Insulin Glargine* (Lantus*) 100 Unit/Ml Soln, 18 UNIT SC QAM, #1 VIAL 10/24/16 Insulin Lispro (Humalog) 100 Unit/1 Ml Cartridge, 8 UNIT SQ AC BREAKFAST 10/24/16 Levothyroxine Sodium* (Levothyroxine Sodium*) 50 Mcg Tablet, 50 MCG PO BEFORE BREAKFAST, #30 TAB 08/13/16 Discontinued Scripts Insulin Lispro (Humalog) 100 Unit/1 Ml Cartridge, 5 UNIT SQ WITH LUNCH for 30 Days Prov:LUCIANA GUZMAN. 09/22/16 Insulin Lispro (Humalog) 100 Unit/1 Ml Cartridge, 6 UNIT SQ WITH DINNER for 30 Days Prov:LUCIANA GUZMAN. 09/22/16 Docusate Sodium* (Colace*) 100 Mg Capsule, 100 MG PO Q12H for 14 Days, CAP Prov:LUCIANA GUZMAN. 09/22/16 Insulin Lispro (Humalog) 100 Unit/1 Ml Cartridge, 8 UNIT SQ AC BREAKFAST for 30 Days Prov:LUCIANA GUZMAN 09/22/16 Insulin Glargine* (Lantus*) 100 Unit/Ml Soln, 16 UNIT SC QAM, #1 VIAL Prov:LUCIANA GUZMAN. 09/22/16 Allergies Allergies: Coded Allergies: No Known Allergy (Unverified , 09/20/16) PMhx/Soc Medical and Surgical Hx: pt denies Surgical Hx History of Surgery: No Anesthesia Reaction: No Hx Neurological Disorder: No Hx Respiratory Disorders: No Hx Cardiac Disorders: No Hx Psychiatric Problems: No Hx Miscellaneous Medical Probl: Yes (TYPE 1 DM ) Hx Alcohol Use: No Hx Substance Use: No Hx Tobacco Use: No Smoking Status: Unknown if ever smoked FmHx Family History: diabetes Physical Exam Vitals Vital Signs Date Time Temp Pulse Resp B/P Pulse Ox O2 Delivery O2 Flow Rate FiO2 10/24/16 13:05 85 18 121/80 100 Room Air 10/24/16 11:37 99.4 123 22 126/78 99 Physical Exam Const: Moderate distress secondary to vomiting Head: Atraumatic Eyes: Normal Conjunctiva ENT: Normal External Ears, Nose and Mouth. Neck: Full range of motion..~ No meningismus. Resp: Clear to auscultation bilaterally Cardio: Tachycardic rate without murmur Abd: Soft, non tender, non distended. Normal bowel sounds Skin: No petechiae or rashes Back: No midline or flank tenderness Ext: No cyanosis, or edema Neur: Awake and alert Psych: Normal Mood and Affect Result Diagram: 10/24/16 1150 10/24/16 1150 Results 24 hrs Laboratory Tests Test 10/24/16 11:47 10/24/16 11:50 10/24/16 11:54 Warner Test N/A Arterial Blood Date Drawn 10/24/2016 12:00:02 PM Arterial Blood Gas Puncture Site VENOUS LINE Blood Gas Modality ROOM AIR Blood Gas Notified Time 10/24/2016 12:10:45 PM Blood Gas Notified Whom Renée Blood Gas Specimen Source Blood venous Blood Gas Temperature 37.0C Carboxyhemoglobin 0.4% FiO2 21.0% Venous Blood Base Excess -8.8mmol/L Venous Blood HCO3 11.6mmol/L Venous Blood Methemoglobin 0.2% Venous Blood Oxygen Saturation 93.3mmHG Venous Blood Oxyhemoglobin 92.7% Venous Blood Total Hemoglobin 15.8g/dl Venous Blood pCO2 (Temp Corrected) 16.5mmHG Venous Blood pH 7.463 Venous Blood pO2 (Temp Corrected) 62.4mmHG Anion Gap 31 Basophils # 0.010^3/ul Basophils % 0.2% Blood Urea Nitrogen 29mg/dl Calcium Level 10.9mg/dl Carbon Dioxide Level 11mmol/L Chloride Level 96mmol/L Creatinine 0.86mg/dl Eosinophils # 0.410^3/ul Eosinophils % 3.7% Glucose Level 479mg/dl Hematocrit 44.0% Hemoglobin 15.2g/dl Lactic Acid Level 6.0mmol/L Lymphocytes # 5.010^3/ul Lymphocytes % 49.6% Mean Corpuscular Hemoglobin 29.0pg Mean Corpuscular Hemoglobin Concent 34.5g/dl Mean Corpuscular Volume 84.0fl Mean Platelet Volume 12.3fl Monocytes # 1.010^3/ul Monocytes % 10.0% Neutrophils # 3.710^3/ul Neutrophils % 36.3% Nucleated Red Blood Cells # 0.010^3/ul Nucleated Red Blood Cells % 0.0/100WBC Platelet Count 92231^3/UL Potassium Level 5.2mmol/L Red Blood Count 5.2410^6/ul Red Cell Distribution Width 11.9% Sodium Level 133mmol/L White Blood Count 10.110^3/ul Bedside Glucose 441mg/dL Current Medications Medications (Trade) Dose Ordered Sig/Carmina Route PRN Reason Start Time Stop Time Status Last Admin Dose Admin Sodium Chloride 2,000 ml @ 1,000 mls/hr Q2H STAT IV 10/24/16 11:42 10/24/16 13:41 10/24/16 12:01 Lactated Ringer's (Lr) 1,000 ml @ 1,000 mls/hr Q1H STAT IV 10/24/16 11:42 10/24/16 12:41 DC Ondansetron HCl (Zofran Inj) 4 mg ONCE STAT IV 10/24/16 11:47 10/24/16 11:48 DC 10/24/16 12:01 Ondansetron HCl 4 mg 4 mg ONCE STAT IV 10/24/16 12:17 10/24/16 12:18 DC 10/24/16 12:25 Insulin Human Regular/Sodium Chloride (Humulin R/NS) 100 ml @ 6 mls/hr ONCE STAT IV 10/24/16 12:40 10/25/16 05:19 Procedures/MDM Patient is a 21-year-old male who presents with acute vomiting. He was found to have acute diabetic ketoacidosis with a bicarbonate of 11 and elevated anion gap. The patient also has an elevated lactic acid but at this point I doubt sepsis. I believe the lactic acid is likely elevated secondary to diabetic ketoacidosis and vomiting. There is no sign of infection at this time although I will order a chest x-ray to look for pneumonia. Urinalysis is pending. The patient has [facility] insurance and Dr. Ortiz is covering for [facility]. The patient will be admitted to the intensive care unit. Dr. Ortiz asked me to call Dr. Garduno and I spoke with Dr. Garduno who works with Dr. Hunter. Dr. Garduno will discuss with Dr. Hunter as to who will consult on the patient. I started a insulin drip at 6 U/h as the patient weighs 61 kg. I did not bolus the patient with insulin given the risk of cerebral edema. The patient was given 2 L of normal saline 1 L of lactated Ringer's as is our protocol here for diabetic ketoacidosis. Critical Care: Time: 45 minutes excluding all billable procedures. Treatments/Evaluations: Close monitoring and treatment of unstable vital signs, cardiorespiratory, and neurologic status, while maintaining tight balance of fluid, respiratory, and cardiac interventions. Departure Diagnosis: Primary Impression: DKA (diabetic ketoacidoses) Qualified Code: E10.10 - Diabetic ketoacidosis without coma associated with type 1 diabetes mellitus Additional Impression: Hyperglycemia Condition: Critical SHARON KINCAID MD Oct 24, 2016 13:16
[2016-10-24 13:51] LABS: ADD UMIC NO; URINE BILIRUBIN (Dip) NEGATIVE (NEGATIVE); URINE BLOOD (Dip) NEGATIVE (NEGATIVE); URINE COLOR LT. YELLOW (YELLOW); URINE KETONES (Dip) 3+ (NEGATIVE); URINE LEUKOCYTE ESTERASE (Dip) NEGATIVE (NEGATIVE); URINE NITRITE (Dip) NEGATIVE (NEGATIVE); URINE TOTAL PROTEIN (Dip) NEGATIVE (NEGATIVE); URINE UROBILINOGEN (Dip) 0.2 E.U./dL (0.1-1.0)
[2016-10-24 13:57] LABS: POTASSIUM 5.3 mmol/L (3.5-5.1)
[2016-10-24 13:59] LABS: CREATININE 0.83 mg/dl (0.61-1.24)
[2016-10-24 14:00] LABS: CALCIUM 10.1 mg/dl (8.4-10.2)
[2016-10-24] MEDS ORDERED: SOD CHLORIDE 0.9% 1,000 ML IV SCH (16:08)
[2016-10-24] MEDS ORDERED: DEXTROSE 5%-0.9% NACL 1,000 ML IV ONE ×2 (16:13→18:35)
--- NOTE | 2016-10-24 16:27 | CONS ---
Date/Time of Note Date/Time of Note DATE: 10/24/16 TIME: 16:22 Assessment/Plan Assessment/Plan Problems: (1) DKA (diabetic ketoacidoses) Status: Acute Comment: He is already improving with the ER protocol DKA protocol. His acidosis is resolving however he still need to go to the ICU. Spine expectation he will probably have been normalized by morning. At that time he can transition over to his regular insulin protocol. There is no clear-cut cause of what set this off but he will be worked up. Qualifiers: Qualified Code: E10.10 - Diabetic ketoacidosis without coma associated with type 1 diabetes mellitus (2) Hypothyroidism Status: Chronic Comment: He will remain on his levothyroxine replacement therapy Qualifiers: Qualified Code: E03.9 - Acquired hypothyroidism (3) Type 1 diabetes mellitus without complications Status: Chronic Comment: As above he is on currently on insulin drip and then transitioned over to his regular insulin protocol. (4) Adrenal insufficiency Status: Chronic Comment: He will be given stress test or is him being placed on his routine dosing. To be on the safe side given the polyglandular nature I will be repeating some of his evaluation looking into other hormonal abnormalities. Consultation Date/Type/Reason Admit Date/Time 10/24/2016 Date of Consultation: Oct 24, 2016 Type of Consultation: Endocrinology Reason for Consultation DKA; diabetes mellitus type 1; adrenal insufficiency; borderline history of elevated prolactin level; hypothyroidism Referring Provider: OSCAR GIANG MD Hx of Present Illness This is the third recent blood pressure and hospital admission for this 21-year- old right-handed single gentleman. He had presented in the middle of last year with DKA is a new onset of diabetes. This is verified new onset. However the course of his workup was discovered he also had adrenal insufficiency both mineralocorticoid and glucocorticoid; hypothyroidism; borderline elevated prolactin level (spurious) and polyglandular autoimmune failure. At this time he comes in in DKA. He is unclear of what might have set this off he had nausea and vomiting starting yesterday. He did take extra dosage of hydrocortisone this morning to make sure due to the stress. He has been not been missing his insulin dosages he does note a little bit of sinus congestion denies any skin lesions dental lesions urinary symptoms etc. Constitutional: no complaints (Denies fever chills or sweats) Eyes: no complaints ENT: no complaints Respiratory: no complaints (Denies cough wheezing shortness of breath) Cardiovascular: no complaints Gastrointestinal: no complaints Genitourinary: no complaints Musculoskeletal: no complaints Skin: no complaints Neurologic: no complaints Endocrine: polydypsia, polyuria Past Medical History Polyglandular autoimmune failure with hypothyroidism and hypoadrenalism diabetes mellitus type 1. Past Surgical History Past Surgical Hx: no surgical history Family History Significant Family History: other (Diabetes mellitus type 1 and his younger brother) Social History Alcohol Use: none Smoking Status: Unknown if ever smoked Drug Use: none Exam/Review of Systems Vital Signs Vitals Vital Signs Date Time Temp Pulse Resp B/P Pulse Ox O2 Delivery O2 Flow Rate FiO2 10/24/16 15:34 94 20 120/70 100 10/24/16 13:05 Room Air 10/24/16 11:37 99.4 Exam Constitutional: alert, oriented Neck: non-tender, supple Respiratory: clear to auscultation, normal air movement Cardiovascular: nl pulses, regular rate and rhythm Gastrointestinal: nl liver, spleen, non-tender, soft Extremities: normal pulses Results Result Diagram: 10/24/16 1150 10/24/16 1340 Results 24 hrs Laboratory Tests Test 10/24/16 11:47 10/24/16 11:50 10/24/16 11:54 10/24/16 13:00 Warner Test N/A Arterial Blood Date Drawn 10/24/2016 12:00:02 PM Arterial Blood Gas Puncture Site VENOUS LINE Blood Gas Modality ROOM AIR Blood Gas Notified Time 10/24/2016 12:10:45 PM Blood Gas Notified Whom Renée Blood Gas Specimen Source Blood venous Blood Gas Temperature 37.0 Carboxyhemoglobin 0.4 FiO2 21.0 Venous Blood Base Excess -8.8 L Venous Blood HCO3 11.6 L Venous Blood Methemoglobin 0.2 Venous Blood Oxygen Saturation 93.3 H Venous Blood Oxyhemoglobin 92.7 Venous Blood Total Hemoglobin 15.8 Venous Blood pCO2 (Temp Corrected) 16.5 L Venous Blood pH 7.463 H Venous Blood pO2 (Temp Corrected) 62.4 H Anion Gap 31 H Basophils # 0.0 Basophils % 0.2 Blood Urea Nitrogen 29 H Calcium Level 10.9 H Carbon Dioxide Level 11 L Chloride Level 96 L Creatinine 0.86 Eosinophils # 0.4 Eosinophils % 3.7 Glucose Level 479 *H Hematocrit 44.0 # Hemoglobin 15.2 # Lactic Acid Level 6.0 *H Lymphocytes # 5.0 H Lymphocytes % 49.6 Mean Corpuscular Hemoglobin 29.0 Mean Corpuscular Hemoglobin Concent 34.5 Mean Corpuscular Volume 84.0 Mean Platelet Volume 12.3 H Monocytes # 1.0 H Monocytes % 10.0 Neutrophils # 3.7 Neutrophils % 36.3 L Nucleated Red Blood Cells # 0.0 Nucleated Red Blood Cells % 0.0 Platelet Count 294 Potassium Level 5.2 H Red Blood Count 5.24 # Red Cell Distribution Width 11.9 Sodium Level 133 L White Blood Count 10.1 # Bedside Glucose 441 *H Urine Bilirubin NEGATIVE Urine Clarity CLEAR Urine Color LT. YELLOW Urine Glucose 0.5% H Urine Hemoglobin NEGATIVE Urine Ketones 3+ H Urine Leukocyte Esterase NEGATIVE Urine Nitrite NEGATIVE Urine Specific Danese 1.015 Urine Total Protein NEGATIVE Urine Urobilinogen 0.2 E.U./dL Urine pH 6.0 Test 10/24/16 13:37 10/24/16 13:40 10/24/16 15:24 Bedside Glucose 373 H 234 H Anion Gap 25 H Blood Urea Nitrogen 27 H Calcium Level 10.1 Carbon Dioxide Level 16 L Chloride Level 101 Creatinine 0.83 Glucose Level 418 *H Lactic Acid Level 3.1 H Potassium Level 5.3 H Sodium Level 137 Medications Medications Current Medications Dextrose/Sodium Chloride (D5-NS) 1,000 ml @ 200 mls/hr Q5H ONCE IV ; Start 06/30 at 16:13; Stop 10/24/16 at 21:12 JS EUCEDA MD Oct 24, 2016 16:27
[2016-10-24] MEDS ORDERED: HYDROCORTISONE 100 MG INJ IV ONE (16:30)
[2016-10-24] MEDS ORDERED: ACCUCHECK XX SCH (16:30)
[2016-10-24] MEDS ORDERED: ONDANSETRON 4 MG TAB PO PRN (16:30)
[2016-10-24] MEDS ORDERED: DEXTROSE 50% 50 ML SYRINGE IV PRN ×2 (16:30)
[2016-10-24] MEDS ORDERED: NACL 0.9% 3 ML SYG IV SCH (16:30)
[2016-10-24] MEDS ORDERED: CYANOCOBALAMIN 500 MCG TAB PO ONE (16:30)
[2016-10-24] MEDS ORDERED: POTASSIUM CHLORIDE 20 MEQ in LACTATED RINGER'S 1,000 ML IV SCH (16:30)
[2016-10-24 16:43] LABS: POTASSIUM 4.3 mmol/L (3.5-5.1)
[2016-10-24 16:46] LABS: CREATININE 0.74 mg/dl (0.61-1.24)
[2016-10-24 16:47] LABS: CALCIUM 10.6 mg/dl (8.4-10.2)
[2016-10-24] MEDS ORDERED: LACTATED RINGER'S 1,000 ML IV SCH (17:08)
--- NOTE | 2016-10-24 17:12 | RADRPT ---
PROCEDURE: XR Chest. CLINICAL INDICATION: Elevated lactic acid TECHNIQUE: Chest AP portable. COMPARISON: 09/20/2016 FINDINGS: The mediastinal structures are unremarkable. The heart is normal in size and configuration. The pu lmonary vascularity is normal. The lung marrufo are unremarkable. No consolidation is identified. The pleural spaces are unremarkable. The axial skeleton is unremarkable. IMPRESSION: No active intrathoracic disease. RPTAT: HGDB .Aron Gonzales MD, MD Date Time Electronically viewed and signed by .Aron Gonzales MD, MD on 10/24/2016 17:11 .B/
[2016-10-24] MEDS ORDERED: POTASSIUM CHLORIDE 10 MEQ in SOD CHLORIDE 0.9% 1,000 ML IV SCH (18:08)
[2016-10-24] MEDS ORDERED: DEXTROSE 5% IV SCH (18:30)
[2016-10-24] MEDS ORDERED: [UNRECOGNIZED DRUG - OTHER] IV SCH (18:30)
[2016-10-24] MEDS ORDERED: POTASSIUM CHLORIDE IV SCH (18:30)
[2016-10-24 19:53] LABS: POTASSIUM 4.3 mmol/L (3.5-5.1)
[2016-10-24 19:56] LABS: CREATININE 0.69 mg/dl (0.61-1.24)
[2016-10-24 19:57] LABS: CALCIUM 10.1 mg/dl (8.4-10.2)
[2016-10-24] MEDS ORDERED: ACETAMINOPHEN 500 MG TAB PO PRN (21:00)
[2016-10-24] MEDS: INSULIN GLARGINE [LANtus] 3 ML PEN SC SCH ×2 (21:19→22:33)
[2016-10-24 21:53] LABS: POTASSIUM 4.6 mmol/L (3.5-5.1)
[2016-10-24 21:56] LABS: CALCIUM 10.4 mg/dl (8.4-10.2); CREATININE 0.69 mg/dl (0.61-1.24)
[2016-10-24 22:09] VITALS: BP 127/82; RESP 21
[2016-10-24] MEDS ORDERED: ONDANSETRON 4 MG INJ IV PRN (22:30)
[2016-10-24 22:40] VITALS: PULSE 96
[2016-10-24 22:52] VITALS: Ht 175.3 cm; Wt 62.5 kg
[2016-10-24 23:06] LABS: POTASSIUM 4.4 mmol/L (3.5-5.1)
[2016-10-24 23:08] LABS: CREATININE 0.74 mg/dl (0.61-1.24)
[2016-10-24 23:09] LABS: CALCIUM 10.4 mg/dl (8.4-10.2)
[2016-10-24] MEDS: POTASSIUM CHLORIDE IV SCH (23:55)
[2016-10-24] MEDS: FAMOTIDINE 20 MG TAB PO SCH (23:55)
[2016-10-24] MEDS: DEXTROSE 5% IV SCH (23:55)
[2016-10-24] MEDS: [UNRECOGNIZED DRUG - OTHER] IV SCH (23:55)
[2016-10-25] MEDS: FAMOTIDINE 20 MG TAB PO SCH ×2 (00:06→21:08)
[2016-10-25] MEDS: HEPARIN 5,000 UNIT/0.5 ML SYG SC SCH ×3 (00:07→21:09)
[2016-10-25] MEDS: INSULIN ASPART [NOVOLOG] 3 ML PEN SC SCH ×8 (00:38→21:00)
[2016-10-25] MEDS: HYDROCORTISONE 5 MG TAB PO SCH ×4 (02:51→21:08)
[2016-10-25] MEDS: LEVOTHYROXINE 50 MCG TAB PO SCH (06:01)
[2016-10-25] MEDS: [UNRECOGNIZED DRUG - OTHER] IV SCH ×2 (06:02→08:42)
[2016-10-25] MEDS: DEXTROSE 5% IV SCH ×2 (06:02→08:42)
[2016-10-25] MEDS: POTASSIUM CHLORIDE IV SCH ×2 (06:02→08:42)
[2016-10-25 06:41] LABS: ADD SCAN DIFF NO
[2016-10-25 06:49] LABS: BASOPHILS % 0.4 % (0.0-2.0); EOSINOPHILS # 0.1 10^3/ul (0.0-0.5); EOSINOPHILS % 0.5 % (0.0-7.0); HEMATOCRIT 34.5 % (42.0-52.0); HEMOGLOBIN 11.7 g/dl (14.0-18.0); LYMPHOCYTES % 28.7 % (15.0-51.0); MEAN CORPUSCULAR HEMOGLOBIN 29.8 pg (29.0-33.0); MEAN CORPUSCULAR HGB CONC 33.9 g/dl (32.0-37.0); MEAN CORPUSCULAR VOLUME 87.9 fl (82.0-101.0); MEAN PLATELET VOLUME 10.2 fl (7.4-10.4); MONOCYTE # 0.7 10^3/ul (0.3-0.9); MONOCYTES % 6.9 % (0.0-11.0); NEUTROPHIL # 6.6 10^3/ul (1.6-7.5); NEUTROPHILS % 63.5 % (39.0-77.0); PLATELET COUNT 199 10^3/UL (140-440); RED BLOOD COUNT 3.92 10^6/ul (4.70-6.10); RED CELL DISTRIBUTION WIDTH 12.8 % (11.5-14.5); WHITE BLOOD COUNT 10.4 10^3/ul (4.8-10.8)
[2016-10-25 06:51] LABS: POTASSIUM 5.7 mmol/L (3.5-5.1)
[2016-10-25 06:53] LABS: CREATININE 0.86 mg/dl (0.61-1.24)
[2016-10-25 06:54] LABS: CALCIUM 10.1 mg/dl (8.4-10.2)
[2016-10-25 07:50] VITALS: BP 106/57; RESP 18
--- NOTE | 2016-10-25 09:05 | HP ---
DATE OF ADMISSION: 10/24/2016 CHIEF COMPLAINT AND HISTORY OF PRESENT ILLNESS: The patient is a 21-year-old gentleman with a histo ry of type 1 diabetes mellitus, hypothyroidism, and adrenal insufficiency, who was recently diagnose d with possible autoimmune polyglandular syndrome. The patient is being followed by Dr. Hunter as an outpatient. The patient came to ER with a 1-day history of elevated blood sugars. The patient repo rted that he was taking his insulin as prescribed; however, noted that his blood sugar had been abril g up. The patient also started having vomiting and abdominal discomfort. The patient came to the E R and was noted to have a low-grade temperature of 99.4. The patient was in DKA, with a bicarbonate of 11, a blood sugar of 479. The patient's calcium was 10.9. The patient was treated with DKA prem col in the ER and since admission, has improved significantly. In fact, the patient is out of DKA n ow and the last chemistry done in the evening revealed a bicarbonate of 22, a blood sugar of 101. T he patient was initially supposed to go to the ICU and now he is going to med/surg. The patient has been seen by Dr. Hunter and his recommendations are being carried out. REVIEW OF SYSTEMS: The patient reported no vomiting. The patient did not have any fever or chills. The patient had a minimal cough and nasal congestion, although there was no sore throat, chest gama n or shortness of breath, and no reported urinary complaints. No reported focal weakness. The rest of the review of systems are unremarkable. PAST MEDICAL HISTORY: As stated above. The patient has polyglandular autoimmune failure with hypot hyroidism, diabetes type 1 and hypoadrenalism. PAST SURGICAL HISTORY: None. FAMILY HISTORY: Positive for type 1 diabetes. SOCIAL HISTORY: No smoking, no alcohol. The patient is in school to become a [employer]. PHYSICAL EXAMINATION: GENERAL: Patient noted to be conscious, awake, alert. VITAL SIGNS: Temperature 99.4, pulse 123, respirations 22, blood pressure 126/78, O2 saturation 99% on room air. HEENT: Conjunctivae and lids normal. Oropharynx clear. NECK: Supple. No mass, no thyromegaly. CHEST: Fairly clear. No use of accessory muscles. CARDIOVASCULAR: S1, S2 normal. No murmur, gallop, or rub. ABDOMEN: Soft, nondistended, nontender. Bowel sounds present. EXTREMITIES: No leg edema. NEUROLOGIC: The patient is awake, alert, fairly oriented, with no gross focal deficits. LABORATORY DATA: As above. In addition, WBC was 10.1, hemoglobin 15.2, platelets 294. Chest x-ray is clear. IMPRESSION: 1. Diabetic ketoacidosis. 2. Type 1 diabetes. 3. Hypothyroidism. 4. 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 PLAN: The patient will be now admitted to med/surg and will be started on post-insulin drip per DKA protocol and will be switched to premeal and long-acting insulin with sliding scale. The patient w ill be resumed on Synthroid, and replacement hydrocortisone will be resumed. Further recommendation s will depend on the patient's hospital course. Dictated By: OSCAR CRUZ/KENTON Conf#: [id number] DID#: [id number]
[2016-10-25] MEDS: SOD CHLORIDE 0.9% 1,000 ML IV SCH ×3 (11:13→21:07)
[2016-10-25] MEDS: ACCUCHECK XX SCH ×3 (11:22→21:10)
--- NOTE | 2016-10-25 13:19 | CONS ---
Date/Time of Note Date/Time of Note DATE: 10/25/16 TIME: 13:14 Assessment/Plan Assessment/Plan Problems: (1) DKA (diabetic ketoacidoses) Status: Acute Comment: Not quite resolved as of this am's labs but resolving. Have d/c'ed dextrose-containing IVF and have started NS. Should lower K and glucose and raise CO2 w/ sq insulin and IVF. Pt. asymptomatic. Recheck renal panel this afternoon. Qualifiers: Diabetes mellitus type: type 1 Diabetes mellitus complication detail: without coma Qualified Code: E10.10 - Diabetic ketoacidosis without coma associated with type 1 diabetes mellitus (2) Autoimmune polyglandular failure Status: Chronic Comment: See below. (3) Adrenal insufficiency Status: Chronic Comment: Cont. hydrocortisone 10 qam/5 qpm (4) Hypothyroidism Status: Chronic Comment: Cont. LT4 50 mcg/d Qualifiers: Hypothyroidism type: acquired Qualified Code: E03.9 - Acquired hypothyroidism (5) Type 1 diabetes mellitus without complications Status: Chronic Comment: Pt. received lantus 16 last night and should cont. Novolog 8 qam, 5 w / lunch, 6 w/ dinner and will follow. Expect improved glycemic control tomorrow. Pt. advised to check glucose more often in future and if levels rising to call before symptoms of DKA develop. Consultation Date/Type/Reason Admit Date/Time Oct 24, 2016 at 12:49 Initial Consult Date 10/24/16 Type of Consultation: Endocrinology Reason for Consultation DKA Referring Provider: OSCAR GIANG MD 24 HR Interval Summary Constitutional: improved, no complaints Detailed Summary Respiratory: no complaints Cardiovascular: no complaints Gastrointestinal: no complaints, No decreased appetite, No pain (epigastric pain resolved ) Genitourinary: no complaints Musculoskeletal: no complaints Neurologic: no complaints Exam/Review of Systems Vital Signs Vitals VS - Last 72 Hours, by Label Date Time Temp Pulse Resp B/P Pulse Ox O2 Delivery O2 Flow Rate FiO2 10/25/16 07:50 97.9 115 18 106/57 97 10/24/16 22:40 96 10/24/16 22:09 98.7 125 21 127/82 100 10/24/16 20:11 102 119/60 100 Room Air 10/24/16 18:43 117 24 135/70 Room Air 10/24/16 15:34 94 20 120/70 100 10/24/16 13:59 104 16 130/72 100 10/24/16 13:05 85 18 121/80 100 Room Air 10/24/16 11:37 99.4 123 22 126/78 99 Vital Signs Date Time Temp Pulse Resp B/P Pulse Ox O2 Delivery O2 Flow Rate FiO2 10/25/16 07:50 97.9 115 18 106/57 97 10/24/16 20:11 Room Air Intake and Output 10/24/16 10/24/16 10/25/16 15:00 23:00 07:00 Intake Total 2000 ml 1000 ml 700 ml Output Total 700 ml 600 ml Balance 2000 ml 300 ml 100 ml Exam Constitutional: alert, oriented, well developed Psych: nl mood/affect, no complaints Respiratory: clear to auscultation, normal air movement Cardiovascular: nl pulses, regular rate and rhythm, No edema, No murmurs/extra sounds, No rub Gastrointestinal: bowel sounds, nl liver, spleen, non-tender, soft, No mass, No rebound or guarding Musculoskeletal: nl extremities to inspection Extremities: normal pulses, No clubbing, No cyanosis, No edema Neurological: HARDWARE TECHNICIAN II-XII intact, nl mental status, nl speech, nl strength Additional Comments Bedside Glucose - 72 Hours Test 10/24/16 11:54 10/24/16 13:37 10/24/16 15:24 10/24/16 16:56 Bedside Glucose 441mg/dL (70-220) *H 373mg/dL (70-220) H 234mg/dL (70-220) H 127mg/dL (70-220) Test 10/24/16 17:38 10/24/16 18:26 10/24/16 19:29 10/24/16 20:47 Bedside Glucose 97mg/dL (70-220) 88mg/dL (70-220) 101mg/dL (70-220) 150mg/dL (70-220) Test 10/24/16 22:01 10/25/16 00:04 10/25/16 00:34 10/25/16 02:48 Bedside Glucose 272mg/dL (70-220) H 314mg/dL (70-220) H 296mg/dL (70-220) H 388mg/dL (70-220) H Test 10/25/16 07:36 10/25/16 11:21 Bedside Glucose 344mg/dL (70-220) H 228mg/dL (70-220) H Results Result Diagram: 10/25/16 0530 10/25/16 0530 Results 24 hrs Laboratory Tests Test 10/24/16 13:37 10/24/16 13:40 10/24/16 15:24 10/24/16 16:00 Bedside Glucose 373 H 234 H Anion Gap 25 H 19 H Blood Urea Nitrogen 27 H 24 H Calcium Level 10.1 10.6 H Carbon Dioxide Level 16 L 20 L Chloride Level 101 105 Creatinine 0.83 0.74 Glucose Level 418 *H 185 # Lactic Acid Level 3.1 H 2.5 H Potassium Level 5.3 H 4.3 Sodium Level 137 140 Hemoglobin A1c 9.8 H Phosphorus Level 3.0 Test 10/24/16 16:56 10/24/16 17:38 10/24/16 18:26 10/24/16 18:30 Bedside Glucose 127 97 88 Anion Gap 13 Blood Urea Nitrogen 20 Calcium Level 10.1 Carbon Dioxide Level 22 Chloride Level 106 Creatinine 0.69 Glucose Level 98 # Potassium Level 4.3 Sodium Level 137 Test 10/24/16 19:29 10/24/16 20:47 10/24/16 20:48 10/24/16 22:01 Bedside Glucose 101 150 272 H Anion Gap 22 #H Blood Urea Nitrogen 18 Calcium Level 10.4 H Carbon Dioxide Level 15 L Chloride Level 106 Creatinine 0.69 Glucose Level 210 # Potassium Level 4.6 Sodium Level 138 Test 10/24/16 22:40 10/25/16 00:04 10/25/16 00:34 10/25/16 02:48 Anion Gap 25 H Blood Urea Nitrogen 18 Calcium Level 10.4 H Carbon Dioxide Level 13 L Chloride Level 104 Creatinine 0.74 Glucose Level 290 H Potassium Level 4.4 Sodium Level 138 Bedside Glucose 314 H 296 H 388 H Test 10/25/16 05:30 10/25/16 05:45 10/25/16 07:36 10/25/16 11:21 Anion Gap 20 H Basophils # 0.0 Basophils % 0.4 Blood Urea Nitrogen 15 Calcium Level 10.1 Carbon Dioxide Level 16 L Chloride Level 104 Creatinine 0.86 Eosinophils # 0.1 Eosinophils % 0.5 Glucose Level 329 H Hematocrit 34.5 #L Hemoglobin 11.7 #L Lymphocytes # 3.0 H Lymphocytes % 28.7 Mean Corpuscular Hemoglobin 29.8 Mean Corpuscular Hemoglobin Concent 33.9 Mean Corpuscular Volume 87.9 Mean Platelet Volume 10.2 Monocytes # 0.7 Monocytes % 6.9 Neutrophils # 6.6 Neutrophils % 63.5 Nucleated Red Blood Cells # 0.0 Nucleated Red Blood Cells % 0.0 Platelet Count 199 # Potassium Level 5.7 H Red Blood Count 3.92 #L Red Cell Distribution Width 12.8 Sodium Level 134 L White Blood Count 10.4 Vitamin B12 Level > 1000 H Bedside Glucose 344 H 228 H Medications Medications Current Medications Ondansetron HCl (Zofran Tab) 4 mg Q6H PRN PO NAUSEA AND/OR VOMITING; Start 06/30 at 16:30 Famotidine (Pepcid) 20 mg Q12 PO Last administered on 10/25/16 00:06; Admin Dose 20 MG; Start 10/24/16 at 21:00 Heparin Sodium (Porcine) (Heparin (5000 Units/0.5 ml)) 5,000 unit Q12 SC Last administered on 10/25/16 08:49; Admin Dose 5,000 UNIT; Start 10/24/16 at 21:00 Hydrocortisone (Cortef) 10 mg QAM PO Last administered on 10/25/16 10:00; Admin Dose 10 MG; Start 10/25/16 at 09:00 Hydrocortisone (Cortef) 2.5 mg QHS PO Last administered on 10/25/16 02:51; Admin Dose 2.5 MG; Start 10/24/16 at 21:00 Dextrose (D50w Syringe) 50 ml Q15M PRN IV For BS 50 or less; Start 10/24/16 at 16:30 Dextrose (D50w Syringe) 25 ml Q15M PRN IV BS between 50-70; Start 10/24/16 at 16:30 Insulin Glargine (Lantus) 16 unit DAILY@20 SC ; Start 10/24/16 at 20:00 Acetaminophen (Tylenol Tab) 500 mg Q4H PRN PO PAIN AND OR ELEVATED TEMP; Start 10/24/16 at 21:00 Ondansetron HCl 4 mg 4 mg Q4H PRN IV NAUSEA AND/OR VOMITING Last administered on 10/24/16 22:16; Admin Dose 4 MG; Start 10/24/16 at 22:30 Sodium Chloride (NS) 1,000 ml @ 125 mls/hr Q8H IV Last administered on t 11:13; Admin Dose 125 MLS/HR; Start 10/25/16 at 10:30 CARO CARRERA MD Oct 25, 2016 13:19
[2016-10-25 15:16] LABS: ALBUMIN 3.3 g/dl (3.3-4.9); POTASSIUM 4.4 mmol/L (3.5-5.1)
[2016-10-25 15:19] LABS: CREATININE 0.74 mg/dl (0.61-1.24)
[2016-10-25 15:20] LABS: CALCIUM 9.9 mg/dl (8.4-10.2)
[2016-10-25 15:24] LABS: PHOSPHORUS 3.5 mg/dl (2.5-4.9)
--- NOTE | 2016-10-25 16:25 | PN ---
Date/Time of Note Date/Time of Note DATE: 10/25/16 TIME: 16:21 Assessment/Plan VTE Prophylaxis VTE Prophylaxis Intervention: SCD's Lines/Catheters IV Catheter Type (from [facility] Urinary Cath still in place: No Assessment/Plan Assessment/Plan 1. Diabetic ketoacidosis. 2. Type 1 diabetes. 3. Hypothyroidism. 4. 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 NICHOLE Galeana Subjective 24 Hr Interval Summary Eyes: no complaints ENT: no complaints Respiratory: no complaints Cardiovascular: no complaints Gastrointestinal: no complaints Genitourinary: no complaints Musculoskeletal: no complaints Skin: no complaints Neurologic: no complaints Endocrine: no complaints Lymphatic: no complaints Psychological: nl mood/affect Exam/Review of Systems Vital Signs Vitals Vital Signs Date Time Temp Pulse Resp B/P Pulse Ox O2 Delivery O2 Flow Rate FiO2 10/25/16 07:50 97.9 115 18 106/57 97 10/24/16 20:11 Room Air Intake and Output 10/24/16 10/24/16 10/25/16 15:00 23:00 07:00 Intake Total 2000 ml 1000 ml 700 ml Output Total 700 ml 600 ml Balance 2000 ml 300 ml 100 ml Exam Constitutional: alert, oriented, well developed Psych: nl mood/affect Head: atraumatic Eyes: EOMI ENMT: nl external ears & nose Respiratory: clear to auscultation Cardiovascular: nl pulses Gastrointestinal: soft Musculoskeletal: nl extremities to inspection Extremities: normal pulses Neurological: nl mental status Skin: nl turgor Lymph: nontender Results Result Diagram: 10/25/16 0530 10/25/16 1452 Results 24 hrs Laboratory Tests Test 10/24/16 16:56 10/24/16 17:38 10/24/16 18:26 10/24/16 18:30 Bedside Glucose 127 97 88 Anion Gap 13 Blood Urea Nitrogen 20 Calcium Level 10.1 Carbon Dioxide Level 22 Chloride Level 106 Creatinine 0.69 Glucose Level 98 # Potassium Level 4.3 Sodium Level 137 Test 10/24/16 19:29 10/24/16 20:47 10/24/16 20:48 10/24/16 22:01 Bedside Glucose 101 150 272 H Anion Gap 22 #H Blood Urea Nitrogen 18 Calcium Level 10.4 H Carbon Dioxide Level 15 L Chloride Level 106 Creatinine 0.69 Glucose Level 210 # Potassium Level 4.6 Sodium Level 138 Test 10/24/16 22:40 10/25/16 00:04 10/25/16 00:34 10/25/16 02:48 Anion Gap 25 H Blood Urea Nitrogen 18 Calcium Level 10.4 H Carbon Dioxide Level 13 L Chloride Level 104 Creatinine 0.74 Glucose Level 290 H Potassium Level 4.4 Sodium Level 138 Bedside Glucose 314 H 296 H 388 H Test 10/25/16 05:30 10/25/16 05:45 10/25/16 07:36 10/25/16 11:21 Anion Gap 20 H Basophils # 0.0 Basophils % 0.4 Blood Urea Nitrogen 15 Calcium Level 10.1 Carbon Dioxide Level 16 L Chloride Level 104 Creatinine 0.86 Eosinophils # 0.1 Eosinophils % 0.5 Glucose Level 329 H Hematocrit 34.5 #L Hemoglobin 11.7 #L Lymphocytes # 3.0 H Lymphocytes % 28.7 Mean Corpuscular Hemoglobin 29.8 Mean Corpuscular Hemoglobin Concent 33.9 Mean Corpuscular Volume 87.9 Mean Platelet Volume 10.2 Monocytes # 0.7 Monocytes % 6.9 Neutrophils # 6.6 Neutrophils % 63.5 Nucleated Red Blood Cells # 0.0 Nucleated Red Blood Cells % 0.0 Platelet Count 199 # Potassium Level 5.7 H Red Blood Count 3.92 #L Red Cell Distribution Width 12.8 Sodium Level 134 L White Blood Count 10.4 Vitamin B12 Level > 1000 H Bedside Glucose 344 H 228 H Test 10/25/16 14:52 10/25/16 16:17 Albumin 3.3 Anion Gap 15 Blood Urea Nitrogen 13 Calcium Level 9.9 Carbon Dioxide Level 22 Chloride Level 106 Creatinine 0.74 Glucose Level 124 # Phosphorus Level 3.5 Potassium Level 4.4 Sodium Level 139 Bedside Glucose 75 Medications Medications Current Medications Ondansetron HCl (Zofran Tab) 4 mg Q6H PRN PO NAUSEA AND/OR VOMITING; Start 06/30 at 16:30 Famotidine (Pepcid) 20 mg Q12 PO Last administered on 10/25/16 00:06; Admin Dose 20 MG; Start 10/24/16 at 21:00 Heparin Sodium (Porcine) (Heparin (5000 Units/0.5 ml)) 5,000 unit Q12 SC Last administered on 10/25/16 08:49; Admin Dose 5,000 UNIT; Start 10/24/16 at 21:00 Hydrocortisone (Cortef) 10 mg QAM PO Last administered on 10/25/16 10:00; Admin Dose 10 MG; Start 10/25/16 at 09:00 Hydrocortisone (Cortef) 2.5 mg QHS PO Last administered on 10/25/16 02:51; Admin Dose 2.5 MG; Start 10/24/16 at 21:00 Dextrose (D50w Syringe) 50 ml Q15M PRN IV For BS 50 or less; Start 10/24/16 at 16:30 Dextrose (D50w Syringe) 25 ml Q15M PRN IV BS between 50-70; Start 10/24/16 at 16:30 Insulin Glargine (Lantus) 16 unit DAILY@20 SC ; Start 10/24/16 at 20:00 Acetaminophen (Tylenol Tab) 500 mg Q4H PRN PO PAIN AND OR ELEVATED TEMP; Start 10/24/16 at 21:00 Ondansetron HCl 4 mg 4 mg Q4H PRN IV NAUSEA AND/OR VOMITING Last administered on 10/24/16 22:16; Admin Dose 4 MG; Start 10/24/16 at 22:30 Sodium Chloride (NS) 1,000 ml @ 125 mls/hr Q8H IV Last administered on 11:13; Admin Dose 125 MLS/HR; Start 10/25/16 at 10:30 KASSIE PALENCIA Oct 25, 2016 16:25
[2016-10-25 20:32] VITALS: BP 110/59; RESP 20
[2016-10-25] MEDS: INSULIN GLARGINE [LANtus] 3 ML PEN SC SCH (22:05)
[2016-10-26] MEDS: LEVOTHYROXINE 50 MCG TAB PO SCH (06:02)
[2016-10-26] MEDS: SOD CHLORIDE 0.9% 1,000 ML IV SCH ×2 (06:03→14:25)
[2016-10-26 06:32] LABS: POTASSIUM 4.3 mmol/L (3.5-5.1)
[2016-10-26 06:35] LABS: CREATININE 0.58 mg/dl (0.61-1.24)
[2016-10-26 06:36] LABS: CALCIUM 8.9 mg/dl (8.4-10.2)
[2016-10-26 06:37] LABS: CREATININE 0.62 mg/dl (0.61-1.24); HEMATOCRIT 31.4 % (42.0-52.0); HEMOGLOBIN 10.6 g/dl (14.0-18.0); MEAN CORPUSCULAR HEMOGLOBIN 29.9 pg (29.0-33.0); MEAN CORPUSCULAR HGB CONC 33.8 g/dl (32.0-37.0); MEAN CORPUSCULAR VOLUME 88.6 fl (82.0-101.0); MEAN PLATELET VOLUME 10.3 fl (7.4-10.4); PLATELET COUNT 163 10^3/UL (140-440); RED BLOOD COUNT 3.54 10^6/ul (4.70-6.10); RED CELL DISTRIBUTION WIDTH 12.6 % (11.5-14.5); UNCORRECTED WBC 4.7 10^3/ul (4.8-10.8); WHITE BLOOD COUNT 4.7 10^3/ul (4.8-10.8)
[2016-10-26 06:38] LABS: CALCIUM 8.8 mg/dl (8.4-10.2); PHOSPHORUS 4.7 mg/dl (2.5-4.9)
[2016-10-26 06:39] LABS: CONDITION 1; LH ANALYZER COMMENTS 1
[2016-10-26 07:48] VITALS: BP 98/55; RESP 20
[2016-10-26] MEDS: ACCUCHECK XX SCH ×3 (07:49→17:21)
[2016-10-26] MEDS: INSULIN ASPART [NOVOLOG] 3 ML PEN SC SCH ×6 (08:00→17:23)
[2016-10-26 09:39] LABS: EOSINOPHILS # 0.2 10^3/ul (0.0-0.5); LYMPHOCYTES # 2.8 10^3/ul (0.8-2.9); MONOCYTE # 0.4 10^3/ul (0.3-0.9); NEUTROPHIL # 1.2 10^3/ul (1.6-7.5)
[2016-10-26] MEDS: FAMOTIDINE 20 MG TAB PO SCH (10:20)
[2016-10-26] MEDS: HYDROCORTISONE 5 MG TAB PO SCH ×2 (10:20→17:23)
[2016-10-26] MEDS: HEPARIN 5,000 UNIT/0.5 ML SYG SC SCH (10:21)
--- NOTE | 2016-10-26 12:37 | CONS ---
Date/Time of Note Date/Time of Note DATE: 10/26/16 TIME: 12:34 Assessment/Plan Assessment/Plan Problems: (1) DKA (diabetic ketoacidoses) Status: Resolved Qualifiers: Diabetes mellitus type: type 1 Diabetes mellitus complication detail: without coma Qualified Code: E10.10 - Diabetic ketoacidosis without coma associated with type 1 diabetes mellitus (2) Autoimmune polyglandular failure Status: Chronic Comment: See below (3) Type 1 diabetes mellitus without complications Status: Chronic Comment: Excellent control. Cont. current insulin doses. Ok for d/c from endo standpoint. (4) Adrenal insufficiency Status: Chronic Comment: Stable on these doses of hydrocortisone. Ok for d/c from endo standpoint. (5) Hypothyroidism Status: Chronic Comment: Stable on current dose LT4. Ok for d/c from endo standpoint Qualifiers: Hypothyroidism type: acquired Qualified Code: E03.9 - Acquired hypothyroidism Consultation Date/Type/Reason Admit Date/Time Oct 24, 2016 at 12:49 Initial Consult Date 10/24/16 Type of Consultation: Endocrinology Reason for Consultation DKA Referring Provider: OSCAR GIANG MD 24 HR Interval Summary Constitutional: improved, no complaints Detailed Summary Respiratory: no complaints Cardiovascular: no complaints Gastrointestinal: no complaints Genitourinary: no complaints Musculoskeletal: no complaints Neurologic: no complaints Exam/Review of Systems Vital Signs Vitals VS - Last 72 Hours, by Label Date Time Temp Pulse Resp B/P Pulse Ox O2 Delivery O2 Flow Rate FiO2 10/26/16 07:48 97.9 71 20 98/55 98 10/25/16 20:32 98.8 78 20 110/59 100 10/25/16 07:50 97.9 115 18 106/57 97 10/24/16 22:40 96 10/24/16 22:09 98.7 125 21 127/82 100 10/24/16 20:11 102 119/60 100 Room Air 10/24/16 18:43 117 24 135/70 Room Air 10/24/16 15:34 94 20 120/70 100 10/24/16 13:59 104 16 130/72 100 10/24/16 13:05 85 18 121/80 100 Room Air 10/24/16 11:37 99.4 123 22 126/78 99 Vital Signs Date Time Temp Pulse Resp B/P Pulse Ox O2 Delivery O2 Flow Rate FiO2 10/26/16 07:48 97.9 71 20 98/55 98 10/24/16 20:11 Room Air Intake and Output 10/25/16 10/25/16 10/26/16 15:00 23:00 07:00 Intake Total 600 ml 2300 ml 1480 ml Balance 600 ml 2300 ml 1480 ml Exam Constitutional: alert, oriented, well developed Psych: nl mood/affect, no complaints Respiratory: clear to auscultation, normal air movement Cardiovascular: nl pulses, regular rate and rhythm, No edema, No murmurs/extra sounds, No rub Gastrointestinal: bowel sounds, nl liver, spleen, non-tender, soft, No mass, No rebound or guarding Musculoskeletal: nl extremities to inspection Extremities: normal pulses, No clubbing, No cyanosis, No edema 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, nl mental status, nl speech, nl strength Additional Comments Bedside Glucose - 72 Hours Test 10/24/16 11:54 10/24/16 13:37 10/24/16 15:24 10/24/16 16:56 Bedside Glucose 441mg/dL (70-220) *H 373mg/dL (70-220) H 234mg/dL (70-220) H 127mg/dL (70-220) Test 10/24/16 17:38 10/24/16 18:26 10/24/16 19:29 10/24/16 20:47 Bedside Glucose 97mg/dL (70-220) 88mg/dL (70-220) 101mg/dL (70-220) 150mg/dL (70-220) Test 10/24/16 22:01 10/25/16 00:04 10/25/16 00:34 10/25/16 02:48 Bedside Glucose 272mg/dL (70-220) H 314mg/dL (70-220) H 296mg/dL (70-220) H 388mg/dL (70-220) H Test 10/25/16 07:36 10/25/16 11:21 10/25/16 16:17 10/25/16 17:20 Bedside Glucose 344mg/dL (70-220) H 228mg/dL (70-220) H 75mg/dL (70-220) 107mg/dL (70-220) Test 10/25/16 20:02 10/26/16 07:43 10/26/16 11:30 Bedside Glucose 125mg/dL (70-220) 79mg/dL (70-220) 188mg/dL (70-220) Results Result Diagram: 10/26/16 0554 10/26/16 0554 Results 24 hrs Laboratory Tests Test 10/25/16 14:52 10/25/16 16:17 10/25/16 17:20 10/25/16 20:02 Albumin 3.3 Anion Gap 15 Blood Urea Nitrogen 13 Calcium Level 9.9 Carbon Dioxide Level 22 Chloride Level 106 Creatinine 0.74 Glucose Level 124 # Phosphorus Level 3.5 Potassium Level 4.4 Sodium Level 139 Bedside Glucose 75 107 125 Test 10/26/16 05:54 10/26/16 07:43 10/26/16 11:30 Albumin 3.0 L Anion Gap 18 H Basophils # 0.0 Basophils % 1.0 Blood Urea Nitrogen 12 Calcium Level 8.9 Carbon Dioxide Level 16 L Chloride Level 109 Creatinine 0.58 L Differential Comment MANUAL DIFF Eosinophils # 0.2 Eosinophils % 5.0 Glucose Level 110 Hematocrit 31.4 L Hemoglobin 10.6 L Large Platelets FEW Lymphocytes # 2.8 Lymphocytes % 60.0 H Mean Corpuscular Hemoglobin 29.9 Mean Corpuscular Hemoglobin Concent 33.8 Mean Corpuscular Volume 88.6 Mean Platelet Volume 10.3 Monocytes # 0.4 Monocytes % 9.0 Neutrophils # 1.2 L Neutrophils % 25.0 L Nucleated Red Blood Cells # Nucleated Red Blood Cells % Phosphorus Level 4.7 Platelet Count 163 Potassium Level 4.3 Red Blood Count 3.54 L Red Cell Distribution Width 12.6 Sodium Level 139 White Blood Count 4.7 #L Bedside Glucose 79 188 Medications Medications Current Medications Ondansetron HCl (Zofran Tab) 4 mg Q6H PRN PO NAUSEA AND/OR VOMITING; Start 06/30 at 16:30 Famotidine (Pepcid) 20 mg Q12 PO Last administered on 10/26/16 10:20; Admin Dose 20 MG; Start 10/24/16 at 21:00 Heparin Sodium (Porcine) (Heparin (5000 Units/0.5 ml)) 5,000 unit Q12 SC Last administered on 10/26/16 10:21; Admin Dose 5,000 UNIT; Start 10/24/16 at 21:00 Hydrocortisone (Cortef) 10 mg QAM PO Last administered on 10/26/16 10:20; Admin Dose 10 MG; Start 10/25/16 at 09:00 Hydrocortisone (Cortef) 2.5 mg QHS PO Last administered on 10/25/16 21:08; Admin Dose 2.5 MG; Start 10/24/16 at 21:00 Dextrose (D50w Syringe) 50 ml Q15M PRN IV For BS 50 or less; Start 10/24/16 at 16:30 Dextrose (D50w Syringe) 25 ml Q15M PRN IV BS between 50-70; Start 10/24/16 at 16:30 Insulin Glargine (Lantus) 16 unit DAILY@20 SC Last administered on 10/25/16 22 :05; Admin Dose 16 UNIT; Start 10/24/16 at 20:00 Acetaminophen (Tylenol Tab) 500 mg Q4H PRN PO PAIN AND OR ELEVATED TEMP; Start 10/24/16 at 21:00 Ondansetron HCl 4 mg 4 mg Q4H PRN IV NAUSEA AND/OR VOMITING Last administered on 10/24/16 22:16; Admin Dose 4 MG; Start 10/24/16 at 22:30 Sodium Chloride (NS) 1,000 ml @ 125 mls/hr Q8H IV Last administered on 06:03; Admin Dose 125 MLS/HR; Start 10/25/16 at 10:30 CARO CARRERA MD Oct 26, 2016 12:37
--- NOTE | 2016-10-26 17:29 | PDOCDIS ---
Discharge Instructions CONDITION Patient Condition: Stable HOME CARE INSTRUCTIONS: Special Diet: Carb Cont ACTIVITY: Activity Restrictions: Slowly Increase Activity Rest between Activity Avoid heavy lifting Do not operate Machinery Do not operate Power Tool Bathing Restrictions: Sponge Bath KASSIE PALENCIA Oct 26, 2016 17:29
[2016-10-26] MEDS ORDERED: NOVO3I SC ×3 (17:36→17:37)
[2016-10-26] MEDS ORDERED: ONDA4TAB95 PO (17:36)
[2016-10-26] MEDS ORDERED: HYDR5TAB2 PO ×3 (17:36)
[2016-10-26] MEDS ORDERED: LANT3I SC (17:37)
--- NOTE | 2016-10-26 17:38 | DS ---
Date/Time of Note Date/Time of Note DATE: 10/26/16 TIME: 17:38 Discharge Summary Admission/Discharge Info Admit Date/Time Oct 24, 2016 at 12:49 Discharge Date/Time Patient Condition: Stable Hospital Course This is the third recent blood pressure and hospital admission for this 21-year- old right-handed single gentleman. He had presented in the middle of last year with DKA is a new onset of diabetes. This is verified new onset. However the course of his workup was discovered he also had adrenal insufficiency both mineralocorticoid and glucocorticoid; hypothyroidism; borderline elevated prolactin level (spurious) and polyglandular autoimmune failure. At this time he comes in in DKA. He is unclear of what might have set this off he had nausea and vomiting starting yesterday. He did take extra dosage of hydrocortisone this morning to make sure due to the stress. He has been not been missing his insulin dosages he does note a little bit of sinus congestion denies any skin lesions dental lesions urinary symptoms etc. Home Meds Active Scripts Insulin Glargine* (Lantus*) 100 Unit/Ml Soln, 16 UNIT SC DAILY@20 for 30 Days Prov:KASSIE PALENCIA 10/26/16 Insulin Aspart* (Novolog Insulin Pen*) 100 Unit/Ml Soln, 6 UNIT SC WITH DINNER for 30 Days Prov:KASSIE PALENCIA 10/26/16 Insulin Aspart* (Novolog Insulin Pen*) 100 Unit/Ml Soln, 5 UNIT SC WITH LUNCH for 30 Days Prov:KASSIE PALENCIA 10/26/16 Insulin Aspart* (Novolog Insulin Pen*) 100 Unit/Ml Soln, 8 UNIT SC WITH BREAKFAST for 30 Days Prov:KASSIE PALENCIA 10/26/16 Hydrocortisone (Hydrocortisone) 5 Mg Tablet, 5 MG PO AC DINNER for 30 Days, TAB Prov:KASSIE PALENCIA 10/26/16 Hydrocortisone (Hydrocortisone) 5 Mg Tablet, 10 MG PO QAM for 30 Days, TAB Prov:KASSIE PALENCIA 10/26/16 Hydrocortisone (Hydrocortisone) 5 Mg Tablet, 2.5 MG PO QHS for 30 Days, TAB Prov:KASSIE PALENCIA 10/26/16 Ondansetron Hcl* (Ondansetron Hcl*) 4 Mg Tablet, 4 MG PO Q6H Y for NAUSEA AND/ OR VOMITING, #10 TAB Prov:KASSIE PALENCIA 10/26/16 Pantoprazole* (Pantoprazole*) 40 Mg Tablet.dr, 40 MG PO DAILY@06 for 14 Days Prov:LUCIANA GUZMAN 09/22/16 Reported Medications Levothyroxine Sodium* (Levothyroxine Sodium*) 50 Mcg Tablet, 50 MCG PO BEFORE BREAKFAST, #30 TAB 08/13/16 Discontinued Reported Medications Insulin Glargine* (Lantus*) 100 Unit/Ml Soln, 18 UNIT SC QAM, #1 VIAL 10/24/16 Insulin Lispro (Humalog) 100 Unit/1 Ml Cartridge, 8 UNIT SQ AC BREAKFAST 10/24/16 Discontinued Scripts Hydrocortisone (Hydrocortisone) 5 Mg Tablet, 7.5 MG PO AC DINNER for 30 Days, TAB Prov:LUCIANA GUZMAN 09/22/16 Hydrocortisone* (Cortef*) 5 Mg Tab, 15 MG PO QAM for 30 Days, TAB Prov:LUCIANA GUZMAN 09/22/16 Insulin Lispro (Humalog) 100 Unit/1 Ml Cartridge, 5 UNIT SQ WITH LUNCH for 30 Days Prov:LUCIANA GUZMAN 09/22/16 Insulin Lispro (Humalog) 100 Unit/1 Ml Cartridge, 6 UNIT SQ WITH DINNER for 30 Days Prov:LUCIANA GUZMAN 09/22/16 Docusate Sodium* (Colace*) 100 Mg Capsule, 100 MG PO Q12H for 14 Days, CAP Prov:LUCIANA GUZMAN 09/22/16 Insulin Lispro (Humalog) 100 Unit/1 Ml Cartridge, 8 UNIT SQ AC BREAKFAST for 30 Days Prov:LUCIANA GUZMAN 09/22/16 Insulin Glargine* (Lantus*) 100 Unit/Ml Soln, 16 UNIT SC QAM, #1 VIAL Prov:LUCIANA GUZMAN 09/22/16 Pending Labs Laboratory Tests Test 10/25/16 20:02 10/26/16 05:54 10/26/16 07:43 10/26/16 11:30 Bedside Glucose 125mg/dL (70-220) 79mg/dL (70-220) 188mg/dL (70-220) Albumin 3.0g/dl (3.3-4.9) Anion Gap 18 (8-16) Basophils # 0.010^3/ul (0.0-0.1) Basophils % 1.0% (0.0-2.0) Blood Urea Nitrogen 12mg/dl (7-20) Calcium Level 8.9mg/dl (8.4-10.2) Carbon Dioxide Level 16mmol/L (21-31) Chloride Level 109mmol/L (97-110) Creatinine 0.58mg/dl (0.61-1.24) Differential Comment MANUAL DIFF Eosinophils # 0.210^3/ul (0.0-0.5) Eosinophils % 5.0% (0.0-7.0) Glucose Level 110mg/dl (70-220) Hematocrit 31.4% (42.0-52.0) Hemoglobin 10.6g/dl (14.0-18.0) Large Platelets FEW Lymphocytes # 2.810^3/ul (0.8-2.9) Lymphocytes % 60.0% (15.0-51.0) Mean Corpuscular Hemoglobin 29.9pg (29.0-33.0) Mean Corpuscular Hemoglobin Concent 33.8g/dl (32.0-37.0) Mean Corpuscular Volume 88.6fl (82.0-101.0) Mean Platelet Volume 10.3fl (7.4-10.4) Monocytes # 0.410^3/ul (0.3-0.9) Monocytes % 9.0% (0.0-11.0) Neutrophils # 1.210^3/ul (1.6-7.5) Neutrophils % 25.0% (39.0-77.0) Nucleated Red Blood Cells # 10^3/ul (0.0-0.0) Nucleated Red Blood Cells % /100WBC (0.0-0.0) Phosphorus Level 4.7mg/dl (2.5-4.9) Platelet Count 32741^3/UL (140-440) Potassium Level 4.3mmol/L (3.5-5.1) Red Blood Count 3.5410^6/ul (4.70-6.10) Red Cell Distribution Width 12.6% (11.5-14.5) Sodium Level 139mmol/L (135-144) White Blood Count 4.710^3/ul (4.8-10.8) Test 10/26/16 16:23 Bedside Glucose 95mg/dL (70-220) KASSIE PALENCIA Oct 26, 2016 17:38
[2016-10-27 16:53] LABS: MICROALBUMIN 0.3 mg/dL
[2016-10-29 16:59] LABS: Z SCORE (MALE) -1.7 SD (-2.0 - +2.0)
== END 2016-10-26 18:50 | disposition home or self-care (01) | DRG 638 ==
LOC: E/R 11:33 → PP2 12:49
PROVIDERS: ADMIT Internal Medicine; ATTEND Internal Medicine
DX: E10.10 Type 1 diabetes mellitus with ketoacidosis without coma (principal); E27.40 Unspecified adrenocortical insufficiency; E03.9 Hypothyroidism, unspecified; Z79.4 Long term (current) use of insulin
CPT/HCPCS: 36415; 71010; 80048; 80069; 81003; 82043; 82607; 82803; 82962; 83036; 83605; 84100; 84146; 84305; 84403; 85025; 96361; 96374; 96375; 96376; J1720; J1815; J2405; J3480; J7030; J7042; J7120; J7121

== ENCOUNTER 2016-11-25 05:26 | Inpatient (IN) | payer OTHER ==
[2016-11-25] VITALS (23 sets, daily range): BP systolic 73–131; BP diastolic 36–89; PULSE 85–113; RESP 9–26; TEMP 98.2; Ht 175.3 cm; Wt 63.7 kg
[~2016-11-25] VITALS: Ht 175.3 cm; Wt 63.7 kg
[~2016-11-25 05:26] MED LIST changes: -DOCU-144 PO; -HYDR5TAB PO; -INSU100C SQ; +NOVO3I SC; +ONDA4TAB95 PO
[2016-11-25] MEDS ORDERED: LACTATED RINGER'S 1,000 ML IV STA (05:32)
[2016-11-25] MEDS ORDERED: ONDANSETRON 4 MG INJ IV STA (05:42)
[2016-11-25] MEDS ORDERED: SOD CHLORIDE 0.9% 2,000 ML IV STA (06:09)
[2016-11-25 06:17] LABS: ADD SCAN DIFF NO
[2016-11-25 06:32] LABS: ABNORMAL IP MESSAGE 1; BASOPHILS % 0.2 % (0.0-2.0); EOSINOPHILS # 0.3 10^3/ul (0.0-0.5); HEMATOCRIT 49.4 % (42.0-52.0); HEMOGLOBIN 16.5 g/dl (14.0-18.0); LYMPHOCYTES # 5.6 10^3/ul (0.8-2.9); LYMPHOCYTES % 59.3 % (15.0-51.0); MEAN CORPUSCULAR HEMOGLOBIN 28.4 pg (29.0-33.0); MEAN CORPUSCULAR HGB CONC 33.4 g/dl (32.0-37.0); MEAN PLATELET VOLUME 12.4 fl (7.4-10.4); MONOCYTE # 0.6 10^3/ul (0.3-0.9); MONOCYTES % 6.8 % (0.0-11.0); NEUTROPHIL # 2.9 10^3/ul (1.6-7.5); NEUTROPHILS % 30.5 % (39.0-77.0); PLATELET COUNT 233 10^3/UL (140-415); POTASSIUM 4.5 mmol/L (3.5-5.1); RED BLOOD COUNT 5.81 10^6/ul (4.70-6.10); RED CELL DISTRIBUTION WIDTH 12.5 % (11.5-14.5); WHITE BLOOD COUNT 9.5 10^3/ul (4.8-10.8)
[2016-11-25 06:34] LABS: CREATININE 0.93 mg/dl (0.61-1.24)
[2016-11-25 06:35] LABS: CALCIUM 10.8 mg/dl (8.4-10.2)
--- NOTE | 2016-11-25 07:14 | RADRPT ---
PROCEDURE: XR Chest. CLINICAL INDICATION: Cough TECHNIQUE: A single AP view of the chest was obtained. COMPARISON: Chest x-ray dated 10/24/2016 FINDINGS: No focal airspace opacification, pleural effusion or pneumothorax is seen. The cardiomediastinal si lhouette is within normal limits for size. The osseous structures are unremarkable. IMPRESSION: No radiographic evidence of acute cardiopulmonary disease. No significant interval change. RPTAT: HH .Annabel De MD, MD Date Time Electronically viewed and signed by .Annabel De MD, MD on 11/25/2016 07:14 .G/
[2016-11-25] MEDS ORDERED: INSULIN REGULAR, HUMAN 100 UNIT in SOD CHLORIDE 0.9% 99 ML IV STA ×4 (07:18→10:44)
[2016-11-25] MEDS ORDERED: GLUCOSE GEL 15 GRAM TUBE PO PRN ×2 (07:30)
[2016-11-25] MEDS ORDERED: DEXTROSE 50% 50 ML SYRINGE IV PRN ×8 (07:30→12:30)
[2016-11-25] MEDS ORDERED: GLUCAGON 1 MG INJ IM PRN (07:30)
[2016-11-25] MEDS ORDERED: GLUCOSE GEL 15 GRAM TUBE BUCCAL PRN (07:30)
--- NOTE | 2016-11-25 07:49 | ERA ---
ER Documentation Chief Complaint Date/Time DATE: 11/25/16 TIME: 07:46 Chief Complaint GAMBOA,DIZZINESS, ABD PAIN N/V HX DM. BS 259 GAVE 3 UNITS REGULAR INSULIN. HPI Patient is a 21-year-old male with [place]'s disease and diabetes who presents with vomiting. He feels nauseous it well. He said that he got sick 1 week ago. He has been taking his insulin as directed. He did take 3 units of regular insulin today. He has had DKA in the past. Upon review of old medical records the patient has multiple visits to the ER with admissions for DKA. He says that his family program specialist are Dr. Hunter and Dr. Garduno. ROS All systems reviewed and are negative except as per history of present illness. Medications Home Meds Active Scripts Insulin Glargine* (Lantus*) 100 Unit/Ml Soln, 16 UNIT SC DAILY@20 for 30 Days Prov:KASSIE PALENCIA 10/26/16 Insulin Aspart* (Novolog Insulin Pen*) 100 Unit/Ml Soln, 6 UNIT SC WITH DINNER for 30 Days Prov:KASSIE PALENCIA 10/26/16 Insulin Aspart* (Novolog Insulin Pen*) 100 Unit/Ml Soln, 5 UNIT SC WITH LUNCH for 30 Days Prov:KASSIE PALENCIA 10/26/16 Insulin Aspart* (Novolog Insulin Pen*) 100 Unit/Ml Soln, 8 UNIT SC WITH BREAKFAST for 30 Days Prov:KASSIE PALENCIA 10/26/16 Hydrocortisone (Hydrocortisone) 5 Mg Tablet, 5 MG PO AC DINNER for 30 Days, TAB Prov:KASSIE PALENCIA 10/26/16 Hydrocortisone (Hydrocortisone) 5 Mg Tablet, 10 MG PO QAM for 30 Days, TAB Prov:KASSIE PALENCIA 10/26/16 Hydrocortisone (Hydrocortisone) 5 Mg Tablet, 2.5 MG PO QHS for 30 Days, TAB Prov:KASSIE PALENCIA 10/26/16 Ondansetron Hcl* (Ondansetron Hcl*) 4 Mg Tablet, 4 MG PO Q6H Y for NAUSEA AND/ OR VOMITING, #10 TAB Prov:KASSIE PALENCIA 10/26/16 Pantoprazole* (Pantoprazole*) 40 Mg Tablet., 40 MG PO DAILY@06 for 14 Days Prov:LUCIANA GUZMAN 09/22/16 Reported Medications Levothyroxine Sodium* (Levothyroxine Sodium*) 50 Mcg Tablet, 50 MCG PO BEFORE BREAKFAST, #30 TAB 08/13/16 Allergies Allergies: Coded Allergies: No Known Allergy (Unverified , 09/20/16) PMhx/Soc History of Surgery: No Anesthesia Reaction: No Hx Neurological Disorder: No Hx Respiratory Disorders: Yes (asthma) Hx Cardiac Disorders: No Hx Psychiatric Problems: No Hx Miscellaneous Medical Probl: Yes (diabetes, adrenal insuff, hypothyroid) Hx Alcohol Use: No Hx Substance Use: No Hx Tobacco Use: No Smoking Status: Never smoker FmHx Family History: diabetes Physical Exam Vitals Vital Signs Date Time Temp Pulse Resp B/P Pulse Ox O2 Delivery O2 Flow Rate FiO2 11/25/16 06:38 97.7 96 20 101/74 100 Room Air 11/25/16 06:03 73 10 118/88 100 Room Air 11/25/16 05:28 96.0 125 22 129/80 99 Physical Exam Const: Mild distress Head: Atraumatic Eyes: Normal Conjunctiva ENT: Normal External Ears, Nose and Mouth. Neck: Full range of motion..~ No meningismus. Resp: Clear to auscultation bilaterally Cardio: Tachycardic rate without murmur Abd: Soft, non tender, non distended. Normal bowel sounds Skin: Tomás skin Back: No midline or flank tenderness Ext: No cyanosis, or edema Neur: Awake and alert Psych: Normal Mood and Affect Result Diagram: 11/25/16 0550 11/25/16 0550 Results 24 hrs Laboratory Tests Test 11/25/16 05:50 11/25/16 06:21 Anion Gap 27 Basophils # 0.010^3/ul Basophils % 0.2% Blood Urea Nitrogen 30mg/dl Calcium Level 10.8mg/dl Carbon Dioxide Level 16mmol/L Chloride Level 97mmol/L Creatinine 0.93mg/dl Eosinophils # 0.310^3/ul Eosinophils % 3.0% Glucose Level 248mg/dl Hematocrit 49.4% Hemoglobin 16.5g/dl Lactic Acid Level 3.6mmol/L Lymphocytes # 5.610^3/ul Lymphocytes % 59.3% Mean Corpuscular Hemoglobin 28.4pg Mean Corpuscular Hemoglobin Concent 33.4g/dl Mean Corpuscular Volume 85.0fl Mean Platelet Volume 12.4fl Monocytes # 0.610^3/ul Monocytes % 6.8% Neutrophils # 2.910^3/ul Neutrophils % 30.5% Nucleated Red Blood Cells # 0.010^3/ul Nucleated Red Blood Cells % 0.0/100WBC Platelet Count 83269^3/UL Potassium Level 4.5mmol/L Red Blood Count 5.8110^6/ul Red Cell Distribution Width 12.5% Sodium Level 135mmol/L White Blood Count 9.510^3/ul Bedside Glucose 213mg/dL Current Medications Medications (Trade) Dose Ordered Sig/Carmina Route PRN Reason Start Time Stop Time Status Last Admin Dose Admin Lactated Ringer's (Lr) 1,000 ml @ 1,000 mls/hr Q1H STAT IV 11/25/16 05:32 11/25/16 06:31 DC 11/25/16 05:57 Ondansetron HCl 4 mg 4 mg ONCE STAT IV 11/25/16 05:42 11/25/16 05:44 DC 11/25/16 05:57 Sodium Chloride 2,000 ml @ 1,000 mls/hr Q2H STAT IV 11/25/16 06:09 11/25/16 08:08 11/25/16 06:18 Insulin Human Regular/Sodium Chloride (Humulin R/NS) 100 ml @ 6 mls/hr ONCE STAT IV 11/25/16 07:18 11/25/16 23:57 Miscellaneous Information 1 ea NOTE XX 11/25/16 07:30 Glucose (Glutose) 15 gm Q15M PRN PO DECREASED GLUCOSE 11/25/16 07:30 Glucose (Glutose) 22.5 gm Q15M PRN PO DECREASED GLUCOSE 11/25/16 07:30 Dextrose (D50w Syringe) 25 ml Q15M PRN IV DECREASED GLUCOSE 11/25/16 07:30 Dextrose (D50w Syringe) 50 ml Q15M PRN IV DECREASED GLUCOSE 11/25/16 07:30 Glucagon (Glucagen) 1 mg Q15M PRN IM DECREASED GLUCOSE 11/25/16 07:30 Glucose (Glutose) 15 gm Q15M PRN BUCCAL DECREASED GLUCOSE 11/25/16 07:30 Procedures/MDM Chest x-ray negative per radiology. Patient is a 21-year-old male with adequate disease who presents with acute diabetic ketoacidosis. His bicarbonate is 16 and his sugar is elevated. He does have an elevated anion gap. The patient was given 2 L of normal saline 1 L of lactated Ringer's. He was started on regular insulin drip at 6 U/h. The patient will be admitted to the intensive care unit under the care of Dr. Ortiz as he has [facility] insurance. I also spoke to Dr. Garduno who will see the patient in consultation or have Dr. Hunter see the patient. The patient will be admitted to the intensive care unit but will likely improve with fluids and insulin. His lactic acid was elevated at 3.6 but at this point I doubt sepsis as I see no sign of serious bacterial infection. Critical Care: Time: 35 minutes excluding all billable procedures. Treatments/Evaluations: Close monitoring and treatment of unstable vital signs, cardiorespiratory, and neurologic status, while maintaining tight balance of fluid, respiratory, and cardiac interventions. Departure Diagnosis: Primary Impression: DKA (diabetic ketoacidoses) Qualified Code: E13.10 - Diabetic ketoacidosis without coma associated with other specified diabetes mellitus Additional Impression: Addisons disease Condition: Critical SHARON KINCAID MD Nov 25, 2016 07:49
[2016-11-25] MEDS ORDERED: DEXTROSE 5%-0.9% NACL 1,000 ML IV ONE (07:57)
[2016-11-25] MEDS ORDERED: SOD CHLORIDE 0.9% 1,000 ML IV SCH ×2 (10:44→10:45)
[2016-11-25] MEDS ORDERED: ACCUCHECK XX SCH (11:00)
[2016-11-25] MEDS ORDERED: INSULIN REGULAR, HUMAN 100 UNIT in SOD CHLORIDE 0.9% 99 ML IV SCH ×4 (11:00→12:30)
[2016-11-25] MEDS: ACCUCHECK XX SCH ×11 (11:15→19:05)
[2016-11-25] MEDS ORDERED: LACTATED RINGER'S 1,000 ML IV SCH ×2 (11:44→11:45)
[2016-11-25 12:03] LABS: POTASSIUM 3.6 mmol/L (3.5-5.1)
[2016-11-25 12:05] LABS: CREATININE 0.7 mg/dl (0.61-1.24)
[2016-11-25 12:06] LABS: CALCIUM 8.9 mg/dl (8.4-10.2); PHOSPHORUS 4.5 mg/dl (2.5-4.9)
[2016-11-25] MEDS: ENOXAPARIN 30 MG/0.3 ML SYG SC SCH (12:15)
[2016-11-25] MEDS ORDERED: SOD CHLORIDE 0.9% IV SCH (12:44)
[2016-11-25] MEDS ORDERED: POTASSIUM CHLORIDE 20 MEQ in SOD CHLORIDE 0.9% 1,000 ML IV SCH (12:44)
[2016-11-25] MEDS ORDERED: POTASSIUM CHLORIDE IV SCH (12:44)
[2016-11-25] MEDS ORDERED: POTASSIUM CHLORIDE 10 MEQ in SOD CHLORIDE 0.9% 1,000 ML IV SCH (12:45)
[2016-11-25] MEDS: PANTOPRAZOLE 40 MG INJ IV SCH (13:26)
[2016-11-25] MEDS ORDERED: HYDROCORTISONE 100 MG INJ IV ONE (13:30)
[2016-11-25] MEDS ORDERED: INSULIN GLARGINE [LANtus] 3 ML PEN SC ONE (13:30)
--- NOTE | 2016-11-25 13:51 | PREOPHP ---
DATE OF ADMISSION: 11/25/2016 HISTORY OF PRESENT ILLNESS: Mr. Francis is a charming 21-year-old gentleman with da yglandular autoimmune failure, presenting with adrenal insufficiency, mineral corticoid and glucocor ticoid; primary hypothyroidism; diabetes mellitus type 1. He has had a few episodes of DKA. He had been in his usual state of health and started to develop a bit of a cold. He missed 2 dosages of h is oral hydrocortisone and developed nausea and vomiting. He came into the emergency room where he w as labeled as having DKA. Please note, his serum bicarbonate was 16, and his sugar was in the mid 2 00s. His lactate level was elevated. He denies any fever, chills, or sweats. He has not had any c ough, dysuria, or other systemic signs of infection. He is now in the ICU on an insulin drip protoc ol. PAST MEDICAL HISTORY: 1. Adrenal insufficiency, mineral corticoid and glucocorticoid. 2. Primary hypothyroidism. 3. Diabetes mellitus type 1. 4. Usual childhood diseases. 5. He has never had any surgeries. ALLERGIES: HE HAS NO KNOWN MEDICAL ALLERGIES. OUTPATIENT MEDICATIONS: 1. Levothyroxine 50 mcg once a day. 2. Hydrocortisone 10 mg morning, 5 mg at dinnertime, 2.5 mg at bedtime. 3. Lantus insulin 16 units at bedtime. 4. NovoLog Insulin on a sliding scale prior to meals. 5. Zofran p.r.n. 6. Pantoprazole p.r.n. HABITS: He is a nonsmoker. No alcohol, no usage of recreational drugs. SOCIAL HISTORY: He was born in [facility] and raised here. He has a high school education . No experience. He lives with his parents. FAMILY HISTORY: Positive for diabetes mellitus type 1. PHYSICAL EXAMINATION: GENERAL: At the time of physical exam, he is a pleasant gentleman who actually appea rs more vibrant than prior. VITAL SIGNS: He has a temperature of 98.2, pulse is 100, respirations 20, blood pressure 118/67, pu lse oximetry on room air is 100%. HEENT: He has hyperpigmentation with variegated coloring on his buccal mucosa. Thyroid gland is so mewhat woody in texture. NECK: Supple. Midline trachea. Remainder of physical exam is as documented by the primary care team. ASSESSMENT AND PLAN: 1. Metabolic acidosis with an anion gap. This is a lactic acidosis due to adrenal insufficiency. I am going to go ahead and give him a dosage of stress steroids one time IV, and he will be back on his routine protocol of medications. He is already out of DKA, and actually I do not believe he aleksandr hindsy was in DKA. However, he is on the insulin drip, and as such, he will continue that while I get him started back on to his medication regimen. 2. Hypothyroidism. He will be maintained on this. 3. Adrenal insufficiency. As above, he will be back on to his regimen. Dictated By: JS EUCEDA MD, JR/KENTON Conf#: [id number] DID#: [id number]
[2016-11-25 13:58] LABS: POTASSIUM 4.7 mmol/L (3.5-5.1)
[2016-11-25 14:00] LABS: CREATININE 0.71 mg/dl (0.61-1.24)
[2016-11-25 14:01] LABS: CALCIUM 8.5 mg/dl (8.4-10.2)
--- NOTE | 2016-11-25 15:50 | HP ---
DATE OF ADMISSION: 11/25/2016 CHIEF COMPLAINT: Headache, dizziness, abdominal pain, nausea, vomiting, and elevated blood sugar. HISTORY OF PRESENT ILLNESS: The patient is a 21-year-old male known to me from previous ad mission. The patient with Bakari disease and diabetes mellitus type ____ . Patient presented to [facility] emergency room stating that he was sick for the last week. He stated he is compliant with insuli n. He checked his sugar, which was 259 and gave himself 3 units of regular insulin. The patient al so complains of nonbilious, nonbloody emesis and abdominal pain, generalized weakness, headache and dizziness. Denies any fever, chills, denies any chest pain, denies any extremity swelling and ambul ation. In the emergency room, patient was noted to have acute diabetic ketoacidosis with bicarbonat e being 16 and elevated sugar and elevated anion gap. Patient was given 2 liters of normal saline a nd 1 liter of lactated Ringer's and was started on insulin drip. Lactic acid was elevated to 3.6. The patient will be admitted to intensive care unit. PAST MEDICAL HISTORY: Positive for [place] disease, hypothyroidism, and diabetes mellitus type ____ . PAST SURGICAL HISTORY: The patient denies having any surgeries in the past. FAMILY HISTORY: Patient has another sibling and uncles on his father's side with diabetes mellitus type 1. SOCIAL HISTORY: Patient lives at home with his father, the patient smokes marijuana occasionally. Patient denies any alcohol use, denies any illicit drug use. Denies tobacco use. HOME MEDICATIONS: Include: 1. Hydrocortisone 5 mg before dinner, 10 mg b.i.d. q.a.m. and 2.5 mg at bedtime. 2. Lantus 16 units daily at 8:00 p.m. 3. NovoLog 5 units with lunch, 6 units with dinner, 8 units with breakfast. 4. Levothyroxine 50 mcg before breakfast. 5. Protonix p.r.n. 6. Zofran p.r.n. REVIEW OF SYSTEMS: A 12-point review of systems is negative unless mentioned in the HPI. PHYSICAL ASSESSMENT: GENERAL: Well-developed, well-nourished male who is currently lethargic but easily arousable, awake , alert and oriented x3. VITAL SIGNS: Temperature is 98.2, pulse is 102, blood pressure 118/67, respiratory rate 20, oxygen saturation 100% on room air. HEENT: Head is atraumatic, normocephalic. Pupils equal, round, reactive to light and accommodation . Oral mucosa is pink and moist. NECK: Supple, no cervical lymphadenopathy, no thyromegaly. CHEST: Lungs clear bilaterally. There is no rhonchi, wheezes, rales noted. CARDIOVASCULAR: Normal S1, S2. The patient is slightly tachycardic. There are no murmurs, gallops , clicks, rubs noted. ABDOMEN: Flat, soft, nondistended. Patient has mild epigastric tenderness, no guarding, no rebound tenderness. EXTREMITIES: No edema, clubbing, cyanosis. Pulses equal bilaterally 2+. SKIN: There is no rash, petechiae noted. NEUROLOGIC: Patient is awake, alert and oriented x3. No focal deficits noted. Motor strength 5/5 in all extremities. LABORATORY DATA: On admission, CBC: White blood cells 9.5, hemoglobin 16.5, hematocrit 49.4, plate lets 233. Chemistry: Sodium is 135, potassium 4.5, chloride 97, carbon dioxide 16, anion gap 27, B UN is 30, creatinine 93, glucose 248, calcium 10.8. Lactic acid 3.6. IMAGING: Chest x-ray on admission was no radiographic evidence of acute cardiopulmonary disease. N o significant interval change. ASSESSMENT AND PLAN: 1. Acute diabetic ketoacidosis. Dr. Hunter will be following patient in endocrinology consultation . Continue insulin drip per DKA protocol ordered. Continue to monitor electrolytes, phosphorus and magnesium. 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 3. Hypothyroidism. Continue Synthroid. 4. Will continue Lovenox for deep venous thrombosis prophylaxis and Protonix for peptic ulcer disea se prophylaxis. Further recommendations based on clinical course. Plan of care discussed with Dr. Ortiz. Dictated By: RENALDO GONZALES FLAT SORTER PROCESSOR for OSCAR ORTIZ MD SR/NTS Conf#: [id number] DID#: [id number]
[2016-11-25] MEDS: HYDROCORTISONE 5 MG TAB PO SCH ×2 (17:11→20:37)
[2016-11-25] MEDS: INSULIN ASPART [NOVOLOG] 3 ML PEN SC SCH (17:22)
[2016-11-25] MEDS ORDERED: INSULIN GLARGINE [LANtus] 3 ML PEN SC SCH (21:00)
[2016-11-26] VITALS (10 sets, daily range): BP systolic 112–157; BP diastolic 59–75; PULSE 77–99; RESP 15–26
[2016-11-26 04:44] LABS: ADD SCAN DIFF NO
[2016-11-26 04:50] LABS: BASOPHILS % 0.2 % (0.0-2.0); EOSINOPHILS # 0.1 10^3/ul (0.0-0.5); EOSINOPHILS % 2.4 % (0.0-7.0); HEMATOCRIT 33.2 % (42.0-52.0); LYMPHOCYTES # 2.8 10^3/ul (0.8-2.9); MEAN CORPUSCULAR HEMOGLOBIN 28.6 pg (29.0-33.0); MEAN CORPUSCULAR HGB CONC 33.1 g/dl (32.0-37.0); MEAN CORPUSCULAR VOLUME 86.5 fl (82.0-101.0); MEAN PLATELET VOLUME 12.1 fl (7.4-10.4); MONOCYTE # 0.4 10^3/ul (0.3-0.9); MONOCYTES % 8.2 % (0.0-11.0); NEUTROPHIL # 1.7 10^3/ul (1.6-7.5); NEUTROPHILS % 34.1 % (39.0-77.0); PLATELET COUNT 136 10^3/UL (140-415); RED BLOOD COUNT 3.84 10^6/ul (4.70-6.10); RED CELL DISTRIBUTION WIDTH 12.5 % (11.5-14.5)
[2016-11-26 05:26] LABS: LYMPHOCYTES % 54.9 % (15.0-51.0)
[2016-11-26] MEDS: PANTOPRAZOLE 40 MG INJ IV SCH (06:00)
[2016-11-26] MEDS: LEVOTHYROXINE 50 MCG TAB PO SCH (07:36)
--- NOTE | 2016-11-26 08:28 | CONS ---
Date/Time of Note Date/Time of Note DATE: 11/26/16 TIME: 08:25 Assessment/Plan Assessment/Plan Problems: (1) Hypothyroidism Status: Chronic Comment: Stable on replacement dosage Qualifiers: Hypothyroidism type: acquired Qualified Code: E03.9 - Acquired hypothyroidism (2) Type 1 diabetes mellitus without complications Status: Chronic Comment: 1 ever tiny component of diabetic ketoacidosis this gentleman had has resolved fully. This was largely adrenal insufficiency inducing lactic acidosis and metabolic acidosis. He is stable for discharge with outpatient follow-up. (3) Autoimmune polyglandular failure Status: Chronic Comment: As above (4) Adrenal insufficiency Status: Chronic Comment: Her main issue here is that if he misses dosages he goes into an acidotic state. I am going to give him a bottle of hydrocortisone from the office and a syringe that if he gets sick he will be able to get himself an I am injection and avoid these issues Consultation Date/Type/Reason Admit Date/Time Nov 25, 2016 at 07:25 Initial Consult Date November 25, 2016 Type of Consultation: Endocrinology Reason for Consultation Polyglandular autoimmune failure with diabetes mellitus type 1; hypothyroidism; adrenal insufficiency mineralocorticoid and glucocorticoid Referring Provider: OSCAR GIANG MD 24 HR Interval Summary Free Text/Dictation Patient reports he is feeling much better and is ready to go home. Constitutional: no complaints Detailed Summary Respiratory: no complaints Cardiovascular: no complaints Gastrointestinal: no complaints Genitourinary: no complaints Endocrine: no complaints Exam/Review of Systems Vital Signs Vitals Vital Signs Date Time Temp Pulse Resp B/P Pulse Ox O2 Delivery O2 Flow Rate FiO2 11/26/16 06:00 82 21 150/75 100 Room Air 11/26/16 04:00 98.5 Intake and Output 11/25/16 11/25/16 11/26/16 15:00 23:00 07:00 Intake Total 2240 ml 1540 ml Output Total 1550 ml 825 ml 900 ml Balance 690 ml 715 ml -900 ml Exam Constitutional: alert, oriented Respiratory: clear to auscultation, normal air movement Cardiovascular: nl pulses, regular rate and rhythm Gastrointestinal: nl liver, spleen, non-tender, soft Results Result Diagram: 11/26/16 0430 11/25/16 1330 Results 24 hrs Laboratory Tests Test 11/25/16 09:07 11/25/16 09:27 11/25/16 10:17 11/25/16 11:08 Bedside Glucose 167 98 73 Lactic Acid Level 1.5 Test 11/25/16 11:36 11/25/16 11:46 11/25/16 12:02 11/25/16 13:02 Anion Gap 15 # Blood Urea Nitrogen 19 # Calcium Level 8.9 Carbon Dioxide Level 22 Chloride Level 103 Creatinine 0.70 Fasting Glucose 61 L Glucose Level 61 #L Hemoglobin A1c 9.7 H Phosphorus Level 4.5 Potassium Level 3.6 Sodium Level 136 Bedside Glucose 59 L 189 284 H Test 11/25/16 13:30 11/25/16 14:17 11/25/16 15:14 11/25/16 16:27 Anion Gap 15 Blood Urea Nitrogen 18 Calcium Level 8.5 Carbon Dioxide Level 21 Chloride Level 103 Creatinine 0.71 Glucose Level 285 #H Potassium Level 4.7 Sodium Level 134 L Bedside Glucose 278 H 235 H 166 Test 11/25/16 17:14 11/25/16 18:06 11/26/16 04:30 11/26/16 07:37 Bedside Glucose 163 240 H 261 H Basophils # 0.0 Basophils % 0.2 Eosinophils # 0.1 Eosinophils % 2.4 Hematocrit 33.2 #L Hemoglobin 11.0 #L Lymphocytes # 2.8 Lymphocytes % 54.9 H Mean Corpuscular Hemoglobin 28.6 L Mean Corpuscular Hemoglobin Concent 33.1 Mean Corpuscular Volume 86.5 Mean Platelet Volume 12.1 H Monocytes # 0.4 Monocytes % 8.2 Neutrophils # 1.7 Neutrophils % 34.1 L Nucleated Red Blood Cells # 0.0 Nucleated Red Blood Cells % 0.0 Phosphorus Level 4.1 Platelet Count 136 #L Red Blood Count 3.84 #L Red Cell Distribution Width 12.5 White Blood Count 5.0 # Medications Medications Current Medications Enoxaparin Sodium (Lovenox) 30 mg DAILY SC Last administered on 11/25/16 12:15 ; Admin Dose 30 MG; Start 11/25/16 at 12:00 Pantoprazole (Protonix Iv) 40 mg DAILY@06 IV Last administered on 11/26/16 06: 00; Admin Dose 40 MG; Start 11/25/16 at 13:00 Hydrocortisone (Cortef) 2.5 mg QHS PO Last administered on 11/25/16 20:37; Admin Dose 2.5 MG; Start 11/25/16 at 21:00 Hydrocortisone (Cortef) 10 mg QAM PO ; Start 11/26/16 at 09:00 Insulin Glargine (Lantus) 24 unit QAM SC ; Start 11/26/16 at 09:00 Miscellaneous Information 1 ea NOTE XX ; Start 11/26/16 at 08:30 Glucose (Glutose) 15 gm Q15M PRN PO DECREASED GLUCOSE; Start 11/26/16 at 08:30 Glucose (Glutose) 22.5 gm Q15M PRN PO DECREASED GLUCOSE; Start 11/26/16 at 08: 30 Dextrose (D50w Syringe) 25 ml Q15M PRN IV DECREASED GLUCOSE; Start 11/26/16 at 08:30 Dextrose (D50w Syringe) 50 ml Q15M PRN IV DECREASED GLUCOSE; Start 11/26/16 at 08:30 Glucagon (Glucagen) 1 mg Q15M PRN IM DECREASED GLUCOSE; Start 11/26/16 at 08:30 Glucose (Glutose) 15 gm Q15M PRN BUCCAL DECREASED GLUCOSE; Start 11/26/16 at 08 :30 JS EUCEDA MD Nov 26, 2016 08:28
[2016-11-26] MEDS ORDERED: GLUCOSE GEL 15 GRAM TUBE BUCCAL PRN (08:30)
[2016-11-26] MEDS ORDERED: GLUCOSE GEL 15 GRAM TUBE PO PRN ×2 (08:30)
[2016-11-26] MEDS ORDERED: DEXTROSE 50% 50 ML SYRINGE IV PRN ×2 (08:30)
[2016-11-26] MEDS ORDERED: GLUCAGON 1 MG INJ IM PRN (08:30)
[2016-11-26] MEDS: INSULIN GLARGINE [LANtus] 3 ML PEN SC SCH (08:39)
[2016-11-26] MEDS: INSULIN ASPART [NOVOLOG] 3 ML PEN SC SCH ×5 (08:40→21:00)
[2016-11-26] MEDS: HYDROCORTISONE 5 MG TAB PO SCH ×4 (08:43→20:46)
[2016-11-26] MEDS: ENOXAPARIN 30 MG/0.3 ML SYG SC SCH (08:46)
--- NOTE | 2016-11-26 17:06 | PN ---
Date/Time of Note Date/Time of Note DATE: 11/26/16 TIME: 17:00 Assessment/Plan VTE Prophylaxis VTE Prophylaxis Intervention: SCD's Lines/Catheters IV [facility] Urinary Cath still in place: No Assessment/Plan Chief Complaint/Hosp Course ASSESSMENT AND PLAN: 1. Acute diabetic ketoacidosis in patient with diabetes mellitus. Dr. Hunter is following patient in endocrinology consultation. Continue Lantus and pre- meal NovoLog as well as NovoLog per mild algorithm sliding scale. 2. [place] disease. Continue patient on hydrocortisone. 3. Hypothyroidism. Continue Synthroid. Anticipate discharge home tomorrow if blood sugar is better controlled. Continue Lovenox for deep venous thrombosis prophylaxis and Protonix for peptic ulcer disease prophylaxis. Further recommendations based on clinical course. Plan of care discussed with Dr. Ortiz. Problems: Subjective 24 Hr Interval Summary Free Text/Dictation Patient's blood sugar is above 200, patient is awake alert, denies any pain. Exam/Review of Systems Vital Signs Vitals Vital Signs Date Time Temp Pulse Resp B/P Pulse Ox O2 Delivery O2 Flow Rate FiO2 11/26/16 12:15 97.6 84 18 131/65 99 Room Air Intake and Output 11/25/16 11/25/16 11/26/16 15:00 23:00 07:00 Intake Total 2240 ml 1540 ml Output Total 1550 ml 825 ml 900 ml Balance 690 ml 715 ml -900 ml Exam PHYSICAL ASSESSMENT: GENERAL: Well-developed, well-nourished male who is currently lethargic but easily arousable, awake, alert and oriented x3. HEENT: Head is atraumatic, normocephalic. PERRLA. NECK: Supple, no cervical lymphadenopathy, no thyromegaly. CHEST: Lungs clear bilaterally. There is no rhonchi, wheezes, rales noted. CARDIOVASCULAR: Normal S1, S2. The patient is slightly tachycardic. There are no murmurs, gallops, clicks, rubs noted. ABDOMEN: Flat, soft, nondistended. Patient has mild epigastric tenderness, no guarding, no rebound tenderness. EXTREMITIES: No edema, clubbing, cyanosis. Pulses equal bilaterally 2+. SKIN: There is no rash, petechiae noted. NEUROLOGIC: Patient is awake, alert and oriented x3 Results Result Diagram: 11/26/16 0430 11/25/16 1330 Results 24 hrs Laboratory Tests Test 11/25/16 17:14 11/25/16 18:06 11/26/16 04:30 11/26/16 07:37 Bedside Glucose 163 240 H 261 H Basophils # 0.0 Basophils % 0.2 Eosinophils # 0.1 Eosinophils % 2.4 Hematocrit 33.2 #L Hemoglobin 11.0 #L Lymphocytes # 2.8 Lymphocytes % 54.9 H Mean Corpuscular Hemoglobin 28.6 L Mean Corpuscular Hemoglobin Concent 33.1 Mean Corpuscular Volume 86.5 Mean Platelet Volume 12.1 H Monocytes # 0.4 Monocytes % 8.2 Neutrophils # 1.7 Neutrophils % 34.1 L Nucleated Red Blood Cells # 0.0 Nucleated Red Blood Cells % 0.0 Phosphorus Level 4.1 Platelet Count 136 #L Red Blood Count 3.84 #L Red Cell Distribution Width 12.5 White Blood Count 5.0 # Test 11/26/16 11:30 Bedside Glucose 254 H Medications Medications Current Medications Enoxaparin Sodium (Lovenox) 30 mg DAILY SC Last administered on 11/25/16 12:15 ; Admin Dose 30 MG; Start 11/25/16 at 12:00 Pantoprazole (Protonix Iv) 40 mg DAILY@06 IV Last administered on 11/26/16 06: 00; Admin Dose 40 MG; Start 11/25/16 at 13:00 Hydrocortisone (Cortef) 2.5 mg QHS PO Last administered on 11/25/16 20:37; Admin Dose 2.5 MG; Start 11/25/16 at 21:00 Hydrocortisone (Cortef) 10 mg QAM PO Last administered on 11/26/16 08:46; Admin Dose 10 MG; Start 11/26/16 at 09:00 Insulin Glargine (Lantus) 24 unit QAM SC Last administered on 11/26/16 08:39; Admin Dose 24 UNIT; Start 11/26/16 at 09:00 Miscellaneous Information 1 ea NOTE XX ; Start 11/26/16 at 08:30 Glucose (Glutose) 15 gm Q15M PRN PO DECREASED GLUCOSE; Start 11/26/16 at 08:30 Glucose (Glutose) 22.5 gm Q15M PRN PO DECREASED GLUCOSE; Start 11/26/16 at 08: 30 Dextrose (D50w Syringe) 25 ml Q15M PRN IV DECREASED GLUCOSE; Start 11/26/16 at 08:30 Dextrose (D50w Syringe) 50 ml Q15M PRN IV DECREASED GLUCOSE; Start 11/26/16 at 08:30 Glucagon (Glucagen) 1 mg Q15M PRN IM DECREASED GLUCOSE; Start 11/26/16 at 08:30 Glucose (Glutose) 15 gm Q15M PRN BUCCAL DECREASED GLUCOSE; Start 11/26/16 at 08 :30 RENALDO GONZALES Nov 26, 2016 17:06
[2016-11-27] MEDS ORDERED: ACCUCHECK XX SCH (02:00)
[2016-11-27 05:04] LABS: ADD SCAN DIFF NO
[2016-11-27] MEDS: LEVOTHYROXINE 50 MCG TAB PO SCH (05:10)
[2016-11-27] MEDS: PANTOPRAZOLE 40 MG INJ IV SCH (05:10)
[2016-11-27 05:28] LABS: POTASSIUM 3.9 mmol/L (3.5-5.1)
[2016-11-27 05:30] LABS: BASOPHILS % 0.2 % (0.0-2.0); EOSINOPHILS # 0.2 10^3/ul (0.0-0.5); EOSINOPHILS % 3.8 % (0.0-7.0); HEMATOCRIT 36.4 % (42.0-52.0); HEMOGLOBIN 12.1 g/dl (14.0-18.0); LYMPHOCYTES # 2.8 10^3/ul (0.8-2.9); LYMPHOCYTES % 59.8 % (15.0-51.0); MEAN CORPUSCULAR HEMOGLOBIN 28.5 pg (29.0-33.0); MEAN CORPUSCULAR HGB CONC 33.2 g/dl (32.0-37.0); MEAN CORPUSCULAR VOLUME 85.8 fl (82.0-101.0); MEAN PLATELET VOLUME 12.7 fl (7.4-10.4); MONOCYTE # 0.4 10^3/ul (0.3-0.9); MONOCYTES % 9.1 % (0.0-11.0); NEUTROPHIL # 1.3 10^3/ul (1.6-7.5); NEUTROPHILS % 27.1 % (39.0-77.0); PLATELET COUNT 154 10^3/UL (140-415); RED BLOOD COUNT 4.24 10^6/ul (4.70-6.10); RED CELL DISTRIBUTION WIDTH 12.1 % (11.5-14.5); WHITE BLOOD COUNT 4.7 10^3/ul (4.8-10.8)
[2016-11-27 05:31] LABS: CALCIUM 8.9 mg/dl (8.4-10.2); CREATININE 0.66 mg/dl (0.61-1.24)
[2016-11-27 08:04] VITALS: BP 136/78; RESP 18
[2016-11-27] MEDS: ENOXAPARIN 30 MG/0.3 ML SYG SC SCH (08:46)
[2016-11-27] MEDS: INSULIN GLARGINE [LANtus] 3 ML PEN SC SCH (08:46)
[2016-11-27] MEDS: INSULIN ASPART [NOVOLOG] 3 ML PEN SC SCH ×4 (08:47→12:40)
[2016-11-27] MEDS: HYDROCORTISONE 5 MG TAB PO SCH (08:48)
--- NOTE | 2016-11-27 13:15 | PDOCDIS ---
Discharge Instructions HOME CARE INSTRUCTIONS: Special Diet: Carb controlled ACTIVITY: Bathing Restrictions: Sponge Bath FOLLOW UP/APPOINTMENTS Appointments FU with Primary MD x 1 week FU with Measurement Advisor as recommended. Call 911 or go to the nearest hospital if symptoms get worse. Patient verbalized understanding of discharge instructions.Aguilar Churchill/staff/patient. KASSIE PALENCIA Nov 27, 2016 13:15
== END 2016-11-27 14:20 | disposition home or self-care (01) | DRG 638 ==
LOC: E/R 05:26 → ICU 07:25 → MS1 11-26 11:21
PROVIDERS: ADMIT Internal Medicine; ATTEND Internal Medicine
DX: E10.10 Type 1 diabetes mellitus with ketoacidosis without coma (principal); E27.1 Primary adrenocortical insufficiency; E31.0 Autoimmune polyglandular failure; E03.9 Hypothyroidism, unspecified; Z79.4 Long term (current) use of insulin
CPT/HCPCS: 36415; 71010; 80048; 82947; 82962; 83036; 83605; 84100; 85025; 87081; 93005; 96365; 96366; 96375; C9113; J1650; J1720; J1815; J2405; J3480; J7030; J7042; J7120

== ENCOUNTER 2017-01-15 12:42 | Emergency (ER) | payer SELFPAY ==
[~2017-01-15] VITALS: Ht 160 cm; Wt 55.0 kg
[2017-01-15 12:43] VITALS: Ht 160 cm; Wt 55.0 kg
== END 2017-01-15 15:10 | disposition left against medical advice (07) ==
LOC: E/R 12:42
DX: Z53.21 Procedure and treatment not carried out due to patient leaving prior to being seen by health care provider (principal)

== ENCOUNTER 2017-06-24 10:13 | Inpatient (IN) | payer OTHER ==
[~2017-06-24] VITALS: Ht 175.3 cm; Wt 67.5 kg
[2017-06-24] MEDS ORDERED: ONDANSETRON 4 MG INJ IV STA (10:59)
[2017-06-24] MEDS ORDERED: SOD CHLORIDE 0.9% 1,000 ML IV STA (10:59)
[2017-06-24 11:50] LABS: BASOPHILS % 0.3 % (0.0-2.0); EOSINOPHILS # 0.3 10^3/ul (0.0-0.5); EOSINOPHILS % 2.8 % (0.0-7.0); HEMATOCRIT 50.5 % (42.0-52.0); HEMOGLOBIN 17.3 g/dl (14.0-18.0); LYMPHOCYTES # 3.2 10^3/ul (0.8-2.9); MEAN CORPUSCULAR HEMOGLOBIN 30.7 pg (29.0-33.0); MEAN CORPUSCULAR HGB CONC 34.3 g/dl (32.0-37.0); MEAN CORPUSCULAR VOLUME 89.5 fl (82.0-101.0); MEAN PLATELET VOLUME 12.4 fl (7.4-10.4); MONOCYTE # 0.9 10^3/ul (0.3-0.9); MONOCYTES % 7.4 % (0.0-11.0); NEUTROPHIL # 7.4 10^3/ul (1.6-7.5); NEUTROPHILS % 62.2 % (39.0-77.0); PLATELET COUNT 189 10^3/UL (140-415); RED BLOOD COUNT 5.64 10^6/ul (4.70-6.10); RED CELL DISTRIBUTION WIDTH 12.5 % (11.5-14.5)
[2017-06-24 12:09] LABS: ALBUMIN 5.3 g/dl (3.3-4.9); ALBUMIN/GLOBULIN RATIO 1.2; BILIRUBIN,INDIRECT 1.1 mg/dl (0-1.1); BILIRUBIN,TOTAL 1.1 mg/dl (0.2-1.3); CALCIUM 10.2 mg/dl (8.4-10.2); CREATININE 1.09 mg/dl (0.61-1.24); POTASSIUM 4.7 mmol/L (3.5-5.1); TOTAL PROTEIN 9.7 g/dl (6.1-8.1)
[2017-06-24] MEDS ORDERED: INSULIN HUMAN REGULAR 100 UNIT in SOD CHLORIDE 0.9% 99 ML IV STA (12:33)
[2017-06-24] MEDS ORDERED: HYDR5TAB PO (12:51)
[2017-06-24] MEDS ORDERED: [UNRECOGNIZED DRUG - CODE] MC (12:55)
[2017-06-24] MEDS ORDERED: PUMP INSULIN MC (12:55)
[2017-06-24] MEDS ORDERED: DEXTROSE 50% 50 ML SYRINGE IV PRN (13:00)
[2017-06-24] MEDS ORDERED: POTASSIUM CHLORIDE 50 ML IVPB PRN (13:00)
--- NOTE | 2017-06-24 13:29 | RADRPT ---
PROCEDURE: XR Chest. CLINICAL INDICATION: Shortness of breath TECHNIQUE: Single portable view of the chest was obtained COMPARISON: November 25, 2016 FINDINGS: The trachea is midline. The cardiac silhouette and pulmonary vascularity are within normal limits. T he lungs are clear. The costophrenic angles are sharp. IMPRESSION: 1. No evidence of acute cardiopulmonary disease. RPTAT: AAPP Physician Hemalatha Date Time Electronically viewed and signed by Katina Gil Physician on 06/24/2017 13:29 JULIA/
[2017-06-24] MEDS ORDERED: ACETAMINOPHEN 325 MG TAB PO PRN ×2 (13:30→18:30)
[2017-06-24] MEDS ORDERED: INSULIN ASPART [NOVOLOG] 3 ML PEN SC ONE (13:30)
[2017-06-24] MEDS: INSULIN ASPART [NOVOLOG] 3 ML PEN SC SCH ×4 (13:30→21:00)
[2017-06-24] MEDS ORDERED: METOCLOPRAMIDE 10 MG INJ IV ONE (13:30)
[2017-06-24] MEDS ORDERED: NS + KCL 20 MEQ 1,000 ML IV SCH (13:30)
[2017-06-24] MEDS ORDERED: ONDANSETRON 4 MG INJ IV PRN (13:30)
[2017-06-24] MEDS ORDERED: LACTATED RINGER'S 1,000 ML IV SCH (13:33)
[2017-06-24] MEDS: ACCU-CHEK XX SCH ×2 (13:34→18:59)
[2017-06-24 13:38] LABS: MAGNESIUM 1.4 mg/dl (1.7-2.5); PHOSPHORUS 3.2 mg/dl (2.5-4.9)
--- NOTE | 2017-06-24 13:44 | ERA ---
ER Documentation Chief Complaint Date/Time DATE: 06/24/17 TIME: 13:36 Chief Complaint Vomiting,weakness "I think im in DKA" HPI 21-year-old male with a history of type 1 diabetes presenting with chief complaint of "I think I am in DKA". He states he has been feeling nauseated and retching since this morning. He has diffuse abdominal pain described as aching. He recently came down with a cold 2 days ago. Since then his blood sugars have been difficult to control. He has been using his insulin as directed. No fevers or chills. No diarrhea, chest pain, confusion. ROS All systems reviewed and are negative except as per history of present illness. Medications Home Meds Reported Medications Insulin* PUMP (Insulin* PUMP) 1 Each Pump.resvr, 1 EACH MC . DIRECTED, EA 06/24/17 Hydrocortisone* (Cortef*) 5 Mg Tab, 10 MG PO BID, #120 TAB 06/24/17 Discontinued Reported Medications Bolus Insulin Pump, 200 Unit (Onetouch Via) 2 Unit Each, 2 UNIT MC 06/24/17 Levothyroxine Sodium* (Levothyroxine Sodium*) 50 Mcg Tablet, 50 MCG PO BEFORE BREAKFAST, #30 TAB 08/13/16 Discontinued Scripts Insulin Glargine* (Lantus*) 100 Unit/Ml Soln, 16 UNIT SC DAILY@20 for 30 Days Prov:KASSIE PALENCIA 10/26/16 Insulin Aspart* (Novolog Insulin Pen*) 100 Unit/Ml Soln, 6 UNIT SC WITH DINNER for 30 Days Prov:KASSIE PALENCIA 10/26/16 Insulin Aspart* (Novolog Insulin Pen*) 100 Unit/Ml Soln, 5 UNIT SC WITH LUNCH for 30 Days Prov:KASSIE PALENCIA 10/26/16 Insulin Aspart* (Novolog Insulin Pen*) 100 Unit/Ml Soln, 8 UNIT SC WITH BREAKFAST for 30 Days Prov:KASSIE PALENCIA 10/26/16 Hydrocortisone (Hydrocortisone) 5 Mg Tablet, 5 MG PO AC DINNER for 30 Days, TAB Prov:KASSIE PALENCIA 10/26/16 Hydrocortisone (Hydrocortisone) 5 Mg Tablet, 10 MG PO QAM for 30 Days, TAB Prov:KASSIE PALENCIA 10/26/16 Hydrocortisone (Hydrocortisone) 5 Mg Tablet, 2.5 MG PO QHS for 30 Days, TAB Prov:KASSIE PALENCIA 10/26/16 Ondansetron Hcl* (Ondansetron Hcl*) 4 Mg Tablet, 4 MG PO Q6H Y for NAUSEA AND/ OR VOMITING, #10 TAB Prov:KASSIE PALENCIA 10/26/16 Pantoprazole* (Pantoprazole*) 40 Mg Tablet.dr, 40 MG PO DAILY@06 for 14 Days Prov:LUCIANA GUZMANLindy 09/22/16 Allergies Allergies: Coded Allergies: No Known Allergy (Unverified , 09/20/16) PMhx/Soc History of Surgery: No Anesthesia Reaction: No Hx Neurological Disorder: No Hx Respiratory Disorders: No Hx Cardiac Disorders: No Hx Psychiatric Problems: No Hx Miscellaneous Medical Probl: Yes (dm) Hx Alcohol Use: No Hx Substance Use: No Hx Tobacco Use: No Smoking Status: Never smoker FmHx Family History: No diabetes Physical Exam Vitals Vital Signs Date Time Temp Pulse Resp B/P Pulse Ox O2 Delivery O2 Flow Rate FiO2 06/24/17 10:15 98.4 90 20 128/83 97 Physical Exam Const: Sickly appearing, but nontoxic, in no apparent distress Head: Atraumatic Eyes: Normal Conjunctiva ENT: Dry mucous membranes, posterior oropharynx normal. Nasal discharge noted. Neck: Full range of motion..~ No meningismus. Resp: Clear to auscultation bilaterally Cardio: Regular rate and rhythm, no murmurs Abd: Soft, non tender, non distended. Normal bowel sounds Skin: No petechiae or rashes Back: No midline or flank tenderness Ext: No cyanosis, or edema Neur: Awake and alert and oriented 3, cranial nerves intact, strength grossly intact Psych: Normal Mood and Affect Result Diagram: 06/24/17 1120 06/24/17 1120 Results 24 hrs Laboratory Tests Test 06/24/17 10:27 06/24/17 11:20 Bedside Glucose 282mg/dL White Blood Count 12.010^3/ul Red Blood Count 5.6410^6/ul Hemoglobin 17.3g/dl Hematocrit 50.5% Mean Corpuscular Volume 89.5fl Mean Corpuscular Hemoglobin 30.7pg Mean Corpuscular Hemoglobin Concent 34.3g/dl Red Cell Distribution Width 12.5% Platelet Count 93466^3/UL Mean Platelet Volume 12.4fl Neutrophils % 62.2% Lymphocytes % 27.0% Monocytes % 7.4% Eosinophils % 2.8% Basophils % 0.3% Nucleated Red Blood Cells % 0.0/100WBC Neutrophils # 7.410^3/ul Lymphocytes # 3.210^3/ul Monocytes # 0.910^3/ul Eosinophils # 0.310^3/ul Basophils # 0.010^3/ul Nucleated Red Blood Cells # 0.010^3/ul Sodium Level 133mmol/L Potassium Level 4.7mmol/L Chloride Level 97mmol/L Carbon Dioxide Level 18mmol/L Anion Gap 23 Blood Urea Nitrogen 15mg/dl Creatinine 1.09mg/dl Glucose Level 321mg/dl Calcium Level 10.2mg/dl Total Bilirubin 1.1mg/dl Direct Bilirubin 0.00mg/dl Indirect Bilirubin 1.1mg/dl Aspartate Amino Transf (AST/SGOT) 34IU/L Alanine Aminotransferase (ALT/SGPT) 29IU/L Alkaline Phosphatase 145IU/L Total Protein 9.7g/dl Albumin 5.3g/dl Globulin 4.40g/dl Albumin/Globulin Ratio 1.20 Lipase 24U/L Current Medications Medications (Trade) Dose Ordered Sig/Carmina Route PRN Reason Start Time Stop Time Status Last Admin Dose Admin Sodium Chloride (NS) 1,000 ml @ 1,000 mls/hr Q1H STAT IV 06/24/17 10:59 06/24/17 11:58 DC 06/24/17 11:37 Ondansetron HCl (Zofran Inj) 4 mg ONCE STAT IV 06/24/17 10:59 06/24/17 11:01 DC 06/24/17 11:37 Dextrose (D50w Syringe) 50 ml Q15M PRN IV For BS 50 or less 06/24/17 13:00 Dextrose 25 ml 25 ml Q15M PRN IV BS between 50-70 06/24/17 13:00 Lactated Ringer's 1,000 ml @ 1,000 mls/hr Q1H IV 06/24/17 13:33 06/24/17 14:32 06/24/17 13:20 Potassium Chloride 20 meq/ Sodium Chloride 1,010 ml @ 500 mls/hr Q2H2M IV 06/24/17 14:33 06/24/17 16:32 Insulin Human Regular/Sodium Chloride (Novolin-R/NS) 100 ml @ 0 mls/hr DKA PROTOCOL STAT IV 06/24/17 12:33 06/24/17 13:14 DC Diagnostic Test (Pha) (Accu-Chek) 1 ea Q1H XX 06/24/17 13:00 06/24/17 13:34 Miscellaneous Information HYPOGLYCEMIA TREATMENT HYPOGLYCEM PROTOCOL PRN XX Hypoglycemia (BS < 70) 06/24/17 13:00 Potassium Chloride (KCl 10 MEQ/50 ML SW) 50 ml @ 50 mls/hr K PROTOCOL PRN IVPB PENDING LAB VALUE 06/24/17 13:00 Metoclopramide HCl (Reglan) 10 mg ONCE ONCE IV 06/24/17 13:30 06/24/17 13:31 DC 06/24/17 13:19 Insulin Aspart (Novolog Insulin Pen) 20 unit ONCE ONCE SC 06/24/17 13:30 06/24/17 13:31 DC Insulin Aspart (Novolog Insulin Pen) 12 unit Q2H SC 06/24/17 13:30 Ondansetron HCl (Zofran Inj) 4 mg ER BRIDGE PRN IV NAUSEA AND/OR VOMITING 06/24/17 13:30 06/25/17 13:29 Acetaminophen 650 mg 650 mg ER BRIDGE PRN PO MILD PAIN/FEVER 06/24/17 13:30 06/25/17 13:29 Potassium Chloride/Sodium Chloride (NS-KCl 20 Meq) 1,000 ml @ 500 mls/hr Q2H IV 06/24/17 13:30 06/24/17 15:29 Cancel Procedures/MDM Labs. CBC: Mild leukocytosis CMP: Mild acidosis, hyperglycemia UA: Pending Acetone pending VBG pending Repeat BMP pending Chest x-ray shows no acute abnormalities MDM Patient is presenting with abdominal pain, hyperglycemia, and vomiting. Her vitals were notable for tachycardia but otherwise stable. Labs indicate possible mild DKA. 2 L IV fluid bolus was ordered. He was started on potassium supplementation along with subcutaneous regimen of insulin every 2 hours. Repeat BMP was ordered. At this time I think the patient is appropriate for telemetry. However if he becomes more acidemic, he will need to go to the ICU. I spoke with the primary care doctor is admitting the patient , , on the labs and change level of care as needed. At this time there is no evidence of serious bacterial infection/sepsis. Patient is not stable for discharge. Critical Care Time: 31 minutes Treatments/Evaluations: Close monitoring and treatment of unstable vital signs, cardiorespiratory, and neurologic status, while maintaining tight balance of fluid, respiratory, and cardiac interventions. This time includes discussing the case with the patient and the patients family. This time does not include all procedures stated elsewhere in this record. This time also includes reviewing old records, labs and radiological studies. This time includes examining and re-examining the patient. Additionally, this time also includes arranging care with admitting and consulting physicians. Departure Diagnosis: Primary Impression: Diabetic ketoacidosis associated with type 1 diabetes mellitus Qualified Code: E10.10 - Diabetic ketoacidosis without coma associated with type 1 diabetes mellitus Additional Impressions: URI, acute History of adrenal insufficiency Condition: Serious ELVIA CORNELIUS MD Jun 24, 2017 13:44
[2017-06-24] MEDS ORDERED: POTASSIUM CHLORIDE 20 MEQ in SOD CHLORIDE 0.9% 1,000 ML IV SCH (14:33)
[2017-06-24 15:31] LABS: CALCIUM 9.6 mg/dl (8.4-10.2); CREATININE 0.86 mg/dl (0.61-1.24); POTASSIUM 4.5 mmol/L (3.5-5.1)
[2017-06-24 18:02] LABS: ADD UMIC NO; UR ASCORBIC ACID NEGATIVE (NEGATIVE); UR BILIRUBIN (Dip) NEGATIVE (NEGATIVE); UR BLOOD (Dip) NEGATIVE (NEGATIVE); UR CLARITY CLEAR (CLEAR); UR COLOR YELLOW (YELLOW); UR GLUCOSE (Dip) 3+ mg/dL (NEGATIVE); UR KETONES (Dip) TRACE mg/dL (NEGATIVE); UR LEUKOCYTE ESTERASE (Dip) NEGATIVE Leu/ul (NEGATIVE); UR NITRITE (Dip) NEGATIVE (NEGATIVE); UR SPECIFIC GRAVITY (Dip) 1.011 (1.003-1.030); UR TOTAL PROTEIN (Dip) NEGATIVE (NEGATIVE); UR UROBILINOGEN (Dip) NEGATIVE (NEGATIVE)
[2017-06-24] MEDS: DEXTROSE 50% 50 ML SYRINGE IV PRN ×2 (18:13→19:00)
[2017-06-24] MEDS ORDERED: MAGNESIUM SULFATE 2 GM/50 ML 50 ML IVPB ONE (18:30)
[2017-06-24] MEDS ORDERED: morphine 2 MG INJ IV PRN (18:30)
[2017-06-24 21:45] LABS: MODE ROOM AIR; MetHgb Venous 0.5 %; Sample Type Blood venous; Venous COHb 0.4 %; Venous Fraction OxyHgb 60.5 %; Venous Total Hemglobin 15.8 g/dl
[2017-06-25] VITALS (18 sets, daily range): BP systolic 92–135; BP diastolic 50–84; PULSE 75–111; RESP 7–28; TEMP 98.4; Ht 175.3 cm; Wt 67.5 kg
[2017-06-25] MEDS ORDERED: GLUCOSE GEL 15 GRAM TUBE BUCCAL PRN (02:00)
[2017-06-25] MEDS ORDERED: GLUCOSE GEL 15 GRAM TUBE PO PRN ×2 (02:00)
[2017-06-25] MEDS ORDERED: DEXTROSE 50% 50 ML SYRINGE IV PRN ×2 (02:00)
[2017-06-25] MEDS ORDERED: GLUCAGON 1 MG INJ IM PRN (02:00)
[2017-06-25] MEDS: Insulin NOVOLOG SS MILD Algorithm (NPO/TPN/ENTERAL FEEDS) SC SCH ×3 (02:34→09:28)
[2017-06-25] MEDS: HYDROCORTISONE 5 MG TAB PO SCH ×4 (04:00→22:38)
[2017-06-25] MEDS ORDERED: MAGNESIUM SULFATE 2 GM/50 ML 50 ML ONE (04:57)
[2017-06-25] MEDS ORDERED: INSULIN ASPART [NOVOLOG] 3 ML PEN SC SCH (05:00)
[2017-06-25] MEDS: ACCU-CHEK XX SCH ×2 (05:01→09:00)
[2017-06-25] MEDS: PANTOPRAZOLE (EC) 40 MG TAB PO SCH (05:04)
--- NOTE | 2017-06-25 06:12 | HP ---
DATE OF ADMISSION: 06/24/2017 CHIEF COMPLAINT: Generalized weakness, nausea and vomiting. HISTORY OF PRESENT ILLNESS: The patient is a 21-year-old gentleman known to me from previous admiss ion. 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 The patient follows with Dr. Hunter in endocrinology consultation. The patient has an insulin pump that he stated that he had it for a couple of months and sugar was well controlled; however, christiano montano had developed flu-like symptoms a couple of days ago with sore throat and generalized malaise. He had a couple of episodes of nonbilious, nonbloody emesis. The patient is still nauseated and h e stated that he feels like he is going into DKA. The patient was admitted previously for DKA and a lso complains of diffuse abdominal pain and patient presented to the emergency room. The patient is noted to have mild leukocytosis on evaluation and no acute abnormalities per chest x-ray. The alejandra ent's sugar was noted to be elevated to 321 on admission. The patient noted to be in mild DKA and p atient was given insulin and IV fluids and patient will be admitted for further evaluation and manag ement. PAST MEDICAL HISTORY: Per HPI. PAST SURGICAL HISTORY: Patient denies having any surgeries in the past. FAMILY HISTORY: The patient has a brother and uncle on his father's side with diabetes mellitus typ e 1. SOCIAL HISTORY: Patient lives at home. Patient denies any alcohol use. Denies any tobacco use, de nies any illicit drug use. ALLERGIES: NO KNOWN ALLERGIES. HOME MEDICATIONS: 1. Patient has an insulin pump. 2. Patient takes hydrocortisone 5 mg b.i.d. REVIEW OF SYSTEMS: A 12-point review of systems is negative unless what mentioned in the HPI. PHYSICAL ASSESSMENT: GENERAL: Well-developed, well-nourished male, currently lethargic but easily arousable. VITAL SIGNS: Temperature is 98.4, pulse is 81, blood pressure is 112/74, respiratory rate 16, oxyge n saturation 99% on room air. HEENT: Head is atraumatic, normocephalic. Pupils equal, round, reactive to light and accommodation . Oral mucosa is pink and moist. NECK: Supple, no cervical lymphadenopathy, no thyromegaly. CHEST: Lungs clear bilaterally. There are no rhonchi, wheezes, rales noted. CARDIOVASCULAR: Normal S1, S2. No murmurs, gallops, clicks, rubs noted. ABDOMEN: Flat, soft, nondistended, nontender, bowel sounds present. There is no guarding, no rebou nd tenderness. EXTREMITIES: No edema, clubbing, cyanosis. SKIN: There is no rash, petechiae noted. NEUROLOGIC: The patient is awake, alert and oriented x4. No focal deficits noted. Motor strength 5/5 in all extremities. LABORATORY DATA: On admission, CBC: White blood cells 12.0, hemoglobin 17.3, hematocrit 50.5, plat elets 187. Chemistries on admission: Sodium is 133, potassium 4.7, chloride 97, carbon dioxide 18, anion gap 23, BUN is 15, creatinine 1.09, glucose 321, calcium is 10.2, AST 34, ALT is 29, alkaline phosphatase is 145. ASSESSMENT AND PLAN: 1. Diabetic ketoacidosis associated with type 1 diabetes mellitus. We will continue insulin, monit or electrolytes. Continue to monitor calcium, phosphorus and magnesium. Dr. Hunter is asked to see patient in endocrinology consultation. Continue IV fluids, Zofran p.r.n. for nausea. 2. Possible upper respiratory infection. Will obtain influenza A and B swab. 3. Adrenal insufficiency. We will continue patient on hydrocortisone b.i.d., sequential compressio n devices for deep venous thrombosis prophylaxis and Protonix for peptic ulcer disease prophylaxis. Further recommendations based on clinical course. Plan of care discussed with Dr. Giang. Dictated By: RENALDO GONZALES CHILD DEVELOPMENT DIRECTOR for [employer]AR GIANG MD, SR/NTS Conf#: [id number] DID#: [id number]
[2017-06-25 06:50] LABS: BASOPHILS % 0.1 % (0.0-2.0); EOSINOPHILS # 0.2 10^3/ul (0.0-0.5); EOSINOPHILS % 2.8 % (0.0-7.0); HEMATOCRIT 40.4 % (42.0-52.0); HEMOGLOBIN 13.8 g/dl (14.0-18.0); LYMPHOCYTES # 2.2 10^3/ul (0.8-2.9); LYMPHOCYTES % 28.8 % (15.0-51.0); MEAN CORPUSCULAR HEMOGLOBIN 30.9 pg (29.0-33.0); MEAN CORPUSCULAR HGB CONC 34.2 g/dl (32.0-37.0); MEAN CORPUSCULAR VOLUME 90.6 fl (82.0-101.0); MONOCYTE # 0.6 10^3/ul (0.3-0.9); MONOCYTES % 7.4 % (0.0-11.0); NEUTROPHIL # 4.7 10^3/ul (1.6-7.5); NEUTROPHILS % 60.6 % (39.0-77.0); PLATELET COUNT 134 10^3/UL (140-415); RED BLOOD COUNT 4.46 10^6/ul (4.70-6.10); RED CELL DISTRIBUTION WIDTH 12.4 % (11.5-14.5); WHITE BLOOD COUNT 7.8 10^3/ul (4.8-10.8)
[2017-06-25 07:11] LABS: ALBUMIN 3.8 g/dl (3.3-4.9); ALBUMIN/GLOBULIN RATIO 1.18; BILIRUBIN,INDIRECT 0.9 mg/dl (0-1.1); BILIRUBIN,TOTAL 0.9 mg/dl (0.2-1.3); CREATININE 0.87 mg/dl (0.61-1.24); MAGNESIUM 1.5 mg/dl (1.7-2.5); PHOSPHORUS 2.6 mg/dl (2.5-4.9); POTASSIUM 4.3 mmol/L (3.5-5.1)
[2017-06-25] MEDS: ONDANSETRON 4 MG INJ IV PRN (10:14)
[2017-06-25] MEDS ORDERED: INSULIN GLARGINE [LANtus] 3 ML PEN SC SCH ×2 (10:30→11:00)
[2017-06-25] MEDS ORDERED: HYDROCORTISONE 100 MG INJ IV ONE (11:00)
[2017-06-25] MEDS ORDERED: HYDROCODONE/HOMATROPINE 5ML CUP PO PRN (11:30)
[2017-06-25] MEDS: INSULIN ASPART [NOVOLOG] 3 ML PEN SC SCH ×5 (12:36→22:31)
--- NOTE | 2017-06-25 20:57 | CONS ---
Date/Time of Note Date/Time of Note DATE: 06/25/17 TIME: 20:51 Assessment/Plan Assessment/Plan Problems: (1) Type 1 diabetes mellitus without complications Status: Chronic Comment: His acidosis has resolved and he is feeling much better after being given a dosage of steroids. I am rotating over back onto his oral steroid preparations and back onto his pump at this time today. (2) Adrenal insufficiency Status: Chronic Comment: After single dosage of steroids to bring him up he can now be on oral steroid replacement therapy. Please note due to the short serum half-life of these medications that is why we are doing it 3 times a day (3) Autoimmune polyglandular failure Status: Chronic Comment: Noted. 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 He presented with adrenal insufficiency and diabetes mellitus type 1 with DKA. Additionally has hypothyroidism. He is placed on insulin pump and had generally done better with this and avoided DKA which previously was having serially and sequentially. He developed a URI and nausea and vomiting but was out of syringes to give himself an injection of his hydrocortisone so he actually developed adrenal insufficiency inducing and acidosis and mild DKA. Please note this was very limited due to him being on a pump. He presented to our emergency room where he was not given steroids and his pump was turned off. Is placed on insulin drip and also given subcu NovoLog on a every 2 hours basis. 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 Past Surgical History Past Surgical Hx: no surgical history Family History Significant Family History: other (His brother has type 1 diabetes) Social History Alcohol Use: none Smoking Status: Never smoker Drug Use: none Exam/Review of Systems Vital Signs Vitals Vital Signs Date Time Temp Pulse Resp B/P Pulse Ox O2 Delivery O2 Flow Rate FiO2 06/25/17 19:30 80 16 92/50 100 Room Air 06/25/17 16:00 98.7 Intake and Output 06/24/17 06/24/17 06/25/17 15:00 23:00 07:00 Intake Total 60 ml Balance 60 ml Exam Constitutional: alert, oriented Eyes: EOMI, PERRL, nl conjunctiva, nl lids, nl sclera ENMT: nl external ears & nose, nl lips & teeth, nl nasal mucosa & septum, other (Pharynx is injected) Neck: non-tender, supple Respiratory: clear to auscultation, normal air movement Cardiovascular: nl pulses, regular rate and rhythm Results Result Diagram: 06/25/17 0552 06/25/17 0552 Results 24 hrs Laboratory Tests Test 06/24/17 21:35 06/24/17 22:35 06/25/17 00:45 06/25/17 02:25 Bedside Glucose 238 H 209 146 315 H Test 06/25/17 03:24 06/25/17 05:00 06/25/17 05:41 06/25/17 05:52 Bedside Glucose 299 H 251 H Hemoglobin A1c 10.1 H White Blood Count 7.8 # Red Blood Count 4.46 #L Hemoglobin 13.8 #L Hematocrit 40.4 L Mean Corpuscular Volume 90.6 Mean Corpuscular Hemoglobin 30.9 Mean Corpuscular Hemoglobin Concent 34.2 Red Cell Distribution Width 12.4 Platelet Count 134 #L Mean Platelet Volume 13.0 H Neutrophils % 60.6 Lymphocytes % 28.8 Monocytes % 7.4 Eosinophils % 2.8 Basophils % 0.1 Nucleated Red Blood Cells % 0.0 Neutrophils # 4.7 Lymphocytes # 2.2 Monocytes # 0.6 Eosinophils # 0.2 Basophils # 0.0 Nucleated Red Blood Cells # 0.0 Sodium Level 132 L Potassium Level 4.3 Chloride Level 101 Carbon Dioxide Level 21 Anion Gap 14 Blood Urea Nitrogen 9 Creatinine 0.87 Glucose Level 266 #H Calcium Level 9.0 Phosphorus Level 2.6 Magnesium Level 1.5 L Total Bilirubin 0.9 Direct Bilirubin 0.00 Indirect Bilirubin 0.9 Aspartate Amino Transf (AST/SGOT) 18 Alanine Aminotransferase (ALT/SGPT) 29 Alkaline Phosphatase 107 Total Protein 7.0 # Albumin 3.8 # Globulin 3.20 Albumin/Globulin Ratio 1.18 Test 06/25/17 08:57 06/25/17 12:23 06/25/17 16:17 06/25/17 17:14 Bedside Glucose 329 H 342 H 212 208 Medications Medications Current Medications Ondansetron HCl (Zofran Inj) 4 mg Q6H PRN IV NAUSEA AND/OR VOMITING Last administered on 06/25/17 10:14; Admin Dose 4 MG; Start 06/24/17 at 18:30 Acetaminophen (Tylenol Tab) 650 mg Q6H PRN PO PAIN LEVEL 1-3 OR FEVER; Start 06/24/17 at 18:30 Morphine Sulfate (morphine) 2 mg Q4H PRN IV SEVERE PAIN LEVEL 7-10; Start 07/31 at 18:30 Pantoprazole (Protonix Tab) 40 mg DAILY@06 PO Last administered on 06/25/17 05:04; Admin Dose 40 MG; Start 06/25/17 at 06:00 Hydrocortisone (Cortef) 10 mg BID PO ; Start 06/24/17 at 21:00 Miscellaneous Information 1 ea NOTE XX ; Start 06/25/17 at 02:00 Glucose (Glutose) 15 gm Q15M PRN PO DECREASED GLUCOSE; Start 06/25/17 at 02:00 Glucose (Glutose) 22.5 gm Q15M PRN PO DECREASED GLUCOSE; Start 06/25/17 at 02: 00 Dextrose (D50w Syringe) 25 ml Q15M PRN IV DECREASED GLUCOSE; Start 06/25/17 at 02:00 Dextrose (D50w Syringe) 50 ml Q15M PRN IV DECREASED GLUCOSE; Start 06/25/17 at 02:00 Glucagon (Glucagen) 1 mg Q15M PRN IM DECREASED GLUCOSE; Start 06/25/17 at 02: 00 Glucose (Glutose) 15 gm Q15M PRN BUCCAL DECREASED GLUCOSE; Start 06/25/17 at 02:00 Diagnostic Test (Pha) (Accu-Chek) 1 ea 02 XX ; Start 06/26/17 at 02:00 Diagnostic Test (Pha) (Accu-Chek) 1 ea 02 XX ; Start 06/26/17 at 02:00 Levothyroxine Sodium (Synthroid) 50 mcg DAILY@06 PO ; Start 06/26/17 at 06:00 Hydrocodone Bit/ Homatropine Methylb (Hycodan Liquid) 5 ml Q6 PRN PO Every 6 hours; Start 06/25/17 at 11:30 Insulin Glargine (Lantus) 16 unit QAM SC ; Start 06/26/17 at 09:00 JS EUCEDA MD Jun 25, 2017 20:57
[2017-06-25] MEDS ORDERED: INSULIN LISPRO 100 UNIT/ML VIAL SC SCH (23:00)
[2017-06-26] MEDS ORDERED: ACCU-CHEK XX SCH (02:00)
[2017-06-26] MEDS: ACCU-CHEK XX SCH (02:00)
[2017-06-26 03:01] VITALS: BP 116/70; RESP 18
[2017-06-26] MEDS: PANTOPRAZOLE (EC) 40 MG TAB PO SCH (05:28)
[2017-06-26] MEDS: LEVOTHYROXINE 50 MCG TAB PO SCH (05:29)
[2017-06-26 07:41] VITALS: BP 105/74; RESP 16
[2017-06-26] MEDS ORDERED: INSULIN GLARGINE [LANtus] 3 ML PEN SC SCH (09:00)
[2017-06-26] MEDS: ONDANSETRON 4 MG INJ IV PRN (09:07)
[2017-06-26] MEDS: HYDROCORTISONE 5 MG TAB PO SCH ×2 (09:10→21:32)
[2017-06-26 13:59] VITALS: BP 119/97; RESP 18
[2017-06-26] MEDS ORDERED: HYDROCORTISONE 5 MG TAB PO SCH (17:35)
--- NOTE | 2017-06-26 19:11 | PN ---
Date/Time of Note Date/Time of Note DATE: 06/26/17 TIME: 19:07 Assessment/Plan VTE Prophylaxis VTE Prophylaxis Intervention: SCD's Lines/Catheters IV Catheter Type (from Nrsg): Saline Lock Assessment/Plan Chief Complaint/Hosp Course Patient denies any nausea and vomiting, tolerates diet well, better control of blood sugar. Problems: Assessment/Plan - Diabetic ketoacidosis associated with type 1 diabetes mellitus, resolved. Dr. Hunter is following in endocrinology consultation. - Adrenal insufficiency. Continue hydrocortisone 3 times daily - Hypothyroidism, continue Synthroid Further recommendations based on clinical course. Plan of care discussed with Dr. Ortiz. Exam/Review of Systems Vital Signs Vitals Vital Signs Date Time Temp Pulse Resp B/P Pulse Ox O2 Delivery O2 Flow Rate FiO2 06/26/17 13:59 98.1 86 18 119/97 97 06/25/17 20:00 Room Air Intake and Output 06/25/17 06/25/17 06/26/17 15:00 23:00 07:00 Intake Total 260 ml Balance 260 ml Exam Constitutional: alert, oriented Neck: supple Respiratory: normal air movement Cardiovascular: nl pulses Gastrointestinal: non-tender, soft Extremities: normal pulses Results Result Diagram: 06/25/17 0552 06/25/17 0552 Results 24 hrs Laboratory Tests Test 06/25/17 22:14 06/26/17 03:33 06/26/17 08:02 06/26/17 09:25 Bedside Glucose 192 227 H 201 198 Test 06/26/17 12:08 06/26/17 17:26 Bedside Glucose 163 126 Medications Medications Current Medications Ondansetron HCl (Zofran Inj) 4 mg Q6H PRN IV NAUSEA AND/OR VOMITING Last administered on 06/26/17 09:07; Admin Dose 4 MG; Start 06/24/17 at 18:30 Acetaminophen (Tylenol Tab) 650 mg Q6H PRN PO PAIN LEVEL 1-3 OR FEVER; Start 06/24/17 at 18:30 Morphine Sulfate (morphine) 2 mg Q4H PRN IV SEVERE PAIN LEVEL 7-10; Start 07/31 at 18:30 Pantoprazole (Protonix Tab) 40 mg DAILY@06 PO Last administered on 06/26/17 05:28; Admin Dose 40 MG; Start 06/25/17 at 06:00 Miscellaneous Information 1 ea NOTE XX ; Start 06/25/17 at 02:00 Glucose (Glutose) 15 gm Q15M PRN PO DECREASED GLUCOSE; Start 06/25/17 at 02:00 Glucose (Glutose) 22.5 gm Q15M PRN PO DECREASED GLUCOSE; Start 06/25/17 at 02: 00 Dextrose (D50w Syringe) 25 ml Q15M PRN IV DECREASED GLUCOSE; Start 06/25/17 at 02:00 Dextrose (D50w Syringe) 50 ml Q15M PRN IV DECREASED GLUCOSE; Start 06/25/17 at 02:00 Glucagon (Glucagen) 1 mg Q15M PRN IM DECREASED GLUCOSE; Start 06/25/17 at 02: 00 Glucose (Glutose) 15 gm Q15M PRN BUCCAL DECREASED GLUCOSE; Start 06/25/17 at 02:00 Diagnostic Test (Pha) (Accu-Chek) 1 ea 02 XX ; Start 06/26/17 at 02:00 Levothyroxine Sodium (Synthroid) 50 mcg DAILY@06 PO Last administered on 05:29; Admin Dose 50 MCG; Start 06/26/17 at 06:00 Hydrocodone Bit/ Homatropine Methylb (Hycodan Liquid) 5 ml Q6 PRN PO Every 6 hours; Start 06/25/17 at 11:30 Insulin Glargine (Lantus) 16 unit QAM SC ; Start 06/26/17 at 09:00; Status Future Hold Hydrocortisone (Cortef) 2.5 mg QHS PO Last administered on 06/25/17 22:38; Admin Dose 2.5 MG; Start 06/25/17 at 21:00 Influenza Virus Vaccine (Fluzone) 0.5 ml ONCE ONCE IM* ; Start 06/27/17 at 09: 00; Stop 06/27/17 at 09:01 Insulin Pump (Patient'S Own Insulin Pump) INSULIN PUMP see la... Q4 SC Last administered on 06/26/17 12:15; Admin Dose 6 UNIT; Start 06/26/17 at 13:00 RENALDO GONZALES Jun 26, 2017 19:11
[2017-06-26 19:37] VITALS: BP 117/79; RESP 16
[2017-06-27] MEDS: ACCU-CHEK XX SCH (01:17)
[2017-06-27 02:00] VITALS: BP 107/73; RESP 16
[2017-06-27] MEDS: LEVOTHYROXINE 50 MCG TAB PO SCH (05:11)
[2017-06-27] MEDS: PANTOPRAZOLE (EC) 40 MG TAB PO SCH (05:11)
[2017-06-27 05:42] LABS: BASOPHILS % 0.3 % (0.0-2.0); EOSINOPHILS # 0.3 10^3/ul (0.0-0.5); EOSINOPHILS % 4.4 % (0.0-7.0); HEMATOCRIT 40.5 % (42.0-52.0); HEMOGLOBIN 14.2 g/dl (14.0-18.0); LYMPHOCYTES # 2.6 10^3/ul (0.8-2.9); LYMPHOCYTES % 40.9 % (15.0-51.0); MEAN CORPUSCULAR HEMOGLOBIN 31.3 pg (29.0-33.0); MEAN CORPUSCULAR HGB CONC 35.1 g/dl (32.0-37.0); MEAN CORPUSCULAR VOLUME 89.2 fl (82.0-101.0); MEAN PLATELET VOLUME 12.8 fl (7.4-10.4); MONOCYTE # 0.7 10^3/ul (0.3-0.9); MONOCYTES % 10.5 % (0.0-11.0); NEUTROPHIL # 2.8 10^3/ul (1.6-7.5); NEUTROPHILS % 43.7 % (39.0-77.0); PLATELET COUNT 160 10^3/UL (140-415); RED BLOOD COUNT 4.54 10^6/ul (4.70-6.10); RED CELL DISTRIBUTION WIDTH 12.3 % (11.5-14.5); WHITE BLOOD COUNT 6.4 10^3/ul (4.8-10.8)
[2017-06-27 06:04] LABS: ALBUMIN 4.3 g/dl (3.3-4.9); ALBUMIN/GLOBULIN RATIO 1.19; BILIRUBIN,INDIRECT 0.7 mg/dl (0-1.1); BILIRUBIN,TOTAL 0.7 mg/dl (0.2-1.3); CALCIUM 9.6 mg/dl (8.4-10.2); CREATININE 1.02 mg/dl (0.61-1.24); POTASSIUM 4.4 mmol/L (3.5-5.1); TOTAL PROTEIN 7.9 g/dl (6.1-8.1)
[2017-06-27 07:44] VITALS: BP 119/82; RESP 17
[2017-06-27] MEDS: HYDROCORTISONE 5 MG TAB PO SCH (08:09)
[2017-06-27] MEDS ORDERED: INFLUENZA VIRUS VACCINE 0.5 ML SYG IM* ONE (09:00)
--- NOTE | 2017-06-27 12:29 | DS ---
Date/Time of Note Date/Time of Note DATE: 06/27/17 TIME: 12:28 Discharge Summary Admission/Discharge Info Admit Date/Time Jun 24, 2017 at 13:19 Discharge Date/Time 06/27/17 Consults endocrinology Hx of Present Illness Patient comes in with mild DKA Hospital Course Patient denies any nausea and vomiting, tolerates diet well, better control of blood sugar after treatment of DKA. Patient is doing better and is stable for discharge. Home Meds Reported Medications Insulin* PUMP (Insulin* PUMP) 1 Each Pump.resvr, 1 EACH MC . DIRECTED, EA 06/24/17 Hydrocortisone* (Cortef*) 5 Mg Tab, 10 MG PO BID, #120 TAB 06/24/17 Discontinued Reported Medications Bolus Insulin Pump, 200 Unit (Onetouch Via) 2 Unit Each, 2 UNIT MC 06/24/17 Levothyroxine Sodium* (Levothyroxine Sodium*) 50 Mcg Tablet, 50 MCG PO BEFORE BREAKFAST, #30 TAB 08/13/16 Discontinued Scripts Insulin Glargine* (Lantus*) 100 Unit/Ml Soln, 16 UNIT SC DAILY@20 for 30 Days Prov:KASSIE PALENCIA 10/26/16 Insulin Aspart* (Novolog Insulin Pen*) 100 Unit/Ml Soln, 6 UNIT SC WITH DINNER for 30 Days Prov:KASSIE PALENCIA 10/26/16 Insulin Aspart* (Novolog Insulin Pen*) 100 Unit/Ml Soln, 5 UNIT SC WITH LUNCH for 30 Days Prov:KASSIE PALENCIA 10/26/16 Insulin Aspart* (Novolog Insulin Pen*) 100 Unit/Ml Soln, 8 UNIT SC WITH BREAKFAST for 30 Days Prov:KASSIE PALENCIA 10/26/16 Hydrocortisone (Hydrocortisone) 5 Mg Tablet, 5 MG PO AC DINNER for 30 Days, TAB Prov:KASSIE PALENCIA 10/26/16 Hydrocortisone (Hydrocortisone) 5 Mg Tablet, 10 MG PO QAM for 30 Days, TAB Prov:KASSIE PALENCIA 10/26/16 Hydrocortisone (Hydrocortisone) 5 Mg Tablet, 2.5 MG PO QHS for 30 Days, TAB Prov:KASSIE PALENCIA 10/26/16 Ondansetron Hcl* (Ondansetron Hcl*) 4 Mg Tablet, 4 MG PO Q6H Y for NAUSEA AND/ OR VOMITING, #10 TAB Prov:KASSIE PALENCIA 10/26/16 Pantoprazole* (Pantoprazole*) 40 Mg Tablet.dr, 40 MG PO DAILY@06 for 14 Days Prov:LUCIANA GUZMAN 09/22/16 Primary Care Provider Orlando Oro Pending Labs Laboratory Tests Test 06/26/17 17:26 06/26/17 21:19 06/27/17 01:12 06/27/17 04:34 Bedside Glucose 126mg/dL (70-220) 83mg/dL (70-220) 151mg/dL (70-220) White Blood Count 6.410^3/ul (4.8-10.8) Red Blood Count 4.5410^6/ul (4.70-6.10) Hemoglobin 14.2g/dl (14.0-18.0) Hematocrit 40.5% (42.0-52.0) Mean Corpuscular Volume 89.2fl (82.0-101.0) Mean Corpuscular Hemoglobin 31.3pg (29.0-33.0) Mean Corpuscular Hemoglobin Concent 35.1g/dl (32.0-37.0) Red Cell Distribution Width 12.3% (11.5-14.5) Platelet Count 14016^3/UL (140-415) Mean Platelet Volume 12.8fl (7.4-10.4) Neutrophils % 43.7% (39.0-77.0) Lymphocytes % 40.9% (15.0-51.0) Monocytes % 10.5% (0.0-11.0) Eosinophils % 4.4% (0.0-7.0) Basophils % 0.3% (0.0-2.0) Nucleated Red Blood Cells % 0.0/100WBC (0.0-0.0) Neutrophils # 2.810^3/ul (1.6-7.5) Lymphocytes # 2.610^3/ul (0.8-2.9) Monocytes # 0.710^3/ul (0.3-0.9) Eosinophils # 0.310^3/ul (0.0-0.5) Basophils # 0.010^3/ul (0.0-0.1) Nucleated Red Blood Cells # 0.010^3/ul (0.0-0.0) Sodium Level 140mmol/L (135-144) Potassium Level 4.4mmol/L (3.5-5.1) Chloride Level 104mmol/L (97-110) Carbon Dioxide Level 24mmol/L (21-31) Anion Gap 16 (8-16) Blood Urea Nitrogen 19mg/dl (7-20) Creatinine 1.02mg/dl (0.61-1.24) Glucose Level 121mg/dl (70-220) Calcium Level 9.6mg/dl (8.4-10.2) Magnesium Level 1.5mg/dl (1.7-2.5) Total Bilirubin 0.7mg/dl (0.2-1.3) Direct Bilirubin 0.00mg/dl (0.00-0.20) Indirect Bilirubin 0.7mg/dl (0-1.1) Aspartate Amino Transf (AST/SGOT) 26IU/L (15-46) Alanine Aminotransferase (ALT/SGPT) 30IU/L (13-69) Alkaline Phosphatase 90IU/L (42-121) Total Protein 7.9g/dl (6.1-8.1) Albumin 4.3g/dl (3.3-4.9) Globulin 3.60g/dl (1.3-3.2) Albumin/Globulin Ratio 1.19 Test 06/27/17 05:08 06/27/17 08:03 06/27/17 12:14 Bedside Glucose 117mg/dL (70-220) 100mg/dL (70-220) 159mg/dL (70-220) MIKHAIL BANGURA Jun 27, 2017 12:29
[2017-06-27] MEDS ORDERED: MAGNESIUM SULFATE 2 GM/50 ML 50 ML IVPB ONE (14:00)
[2017-06-27 14:41] VITALS: BP 109/75; RESP 16
== END 2017-06-27 16:07 | disposition home or self-care (01) | DRG 638 ==
LOC: E/R 10:13 → ICU 13:19 → PP2 06-25 19:36
PROVIDERS: ADMIT Internal Medicine; ATTEND Internal Medicine
DX: E10.10 Type 1 diabetes mellitus with ketoacidosis without coma (principal); E27.40 Unspecified adrenocortical insufficiency; J06.9 Acute upper respiratory infection, unspecified; E03.9 Hypothyroidism, unspecified; E31.0 Autoimmune polyglandular failure; Z79.4 Long term (current) use of insulin
CPT/HCPCS: 36415; 71010; 80048; 80053; 81003; 82010; 82803; 82962; 83036; 83690; 83735; 84100; 85025; 87081; 90686; 96372; 96374; 96375; 96376; J1720; J1815; J2405; J2765; J3475; J3480; J7030; J7120

== ENCOUNTER 2017-10-29 23:03 | Inpatient (IN) | END 2017-11-03 18:40 | disposition home or self-care (01) | DRG 638 ==

== ENCOUNTER 2017-12-30 22:45 | Inpatient (IN) | END 2018-01-02 17:29 | disposition home or self-care (01) | DRG 638 ==

== ENCOUNTER 2018-06-06 03:25 | Inpatient (IN) | END 2018-06-09 15:50 | disposition home or self-care (01) | DRG 638 ==

== ENCOUNTER 2019-01-24 19:19 | Inpatient (IN) | payer OTHER ==
[~2019-01-24] VITALS: Ht 177.8 cm; Wt 73.2 kg
[~2019-01-24 19:19] MED LIST changes: -HYDR5TAB2 PO; +HYDR5TAB7 PO; +INSU100C SQ; -LANT3I SC; -LEVO50TA74 PO; -NOVO3I SC; -ONDA4TAB95 PO; -PANT40TA4 PO
[2019-01-24] MEDS ORDERED: ONDANSETRON 4 MG INJ IV STA (19:56)
--- NOTE | 2019-01-24 19:56 | ERD ---
ER Documentation Chief Complaint Chief Complaint vomiting/generalize body weakness x 1 day HPI The patient is a 23-year-old male, presenting to the ER because of vomiting, general body weakness for 1 day, had similar symptoms previously from DKA. He denies fever, complains of intermittent cough, denies chest pain, dyspnea, complains of vomiting of nonbilious /nonbloody, denies dysuria, diarrhea, constipation. He does not smoke nor drink or does illicit drug Medical history: Diabetes mellitus, history of adrenal insufficiency, hypothyroidism Past surgical history: None ROS All systems reviewed and are negative except as per history of present illness. Medications Home Meds Reported Medications Levothyroxine Sodium* (Levothyroxine Sodium*) 50 Mcg Tablet, 50 MCG PO BEFORE BREAKFAST, #30 TAB 01/24/19 Insulin Lispro (Humalog) 100 Unit/1 Ml Cartridge, 8 UNIT SQ VIA A PUMP, EA 8 UNITS WITH EACH PUMP 01/24/19 Discontinued Reported Medications Insulin Lispro (Humalog) 100 Unit/1 Ml Cartridge, 0 SQ VIA A PUMP, EA PT USES A PUMP 06/06/18 Discontinued Scripts Hydrocortisone (Hydrocortisone) 5 Mg Tablet, 2.5 MG PO QHS for 30 Days, TAB Prov:JAMI GONZALESETLANA 06/09/18 Hydrocortisone (Hydrocortisone) 5 Mg Tablet, 15 MG PO QAM for 30 Days, TAB Prov:TOMMY GONZALESA 06/09/18 Hydrocortisone (Hydrocortisone) 5 Mg Tablet, 7.5 MG PO PC LUNCH for 30 Days, TAB Prov:JAMI GONZALESETLANA 06/09/18 Allergies Allergies: Coded Allergies: No Known Allergy (Unverified , 01/24/19) PMhx/Soc History of Surgery: No Hx Neurological Disorder: No Hx Respiratory Disorders: No Hx Cardiac Disorders: No Hx Psychiatric Problems: No Hx Miscellaneous Medical Probl: No Hx Alcohol Use: Yes Hx Substance Use: No Hx Tobacco Use: Yes Physical Exam Vitals Vital Signs Date Temp Pulse Resp B/P (MAP) Pulse Ox O2 O2 Flow FiO2 Time Delivery Rate 01/24/19 100 22 90/39 (56) 100 Room Air 21:29 01/24/19 101 18 96/50 (65) 100 Room Air 20:08 01/24/19 97.6 122 20 99/44 (62) 98 19:44 Physical Exam Const: No acute distress.Dehydrated Head: Atraumatic. Eyes: Normal Conjunctiva. ENT: Normal External Ears, Nose and Mouth. Neck: Full range of motion. No meningismus. Resp: Clear to auscultation bilaterally. Cardio: Regular tachycardic Abd: Soft, non distended, normal bowel sounds, vague and diffuse abdominal discomfort, no rigidity, rebound, CVA tenderness Skin: No petechiae or rashes. Back: No midline or flank tenderness. Ext: No cyanosis, or edema. Neur: Awake and alert. No focal deficit Psych: Normal Mood and Affect. Result Diagram: 01/24/19195601/24/191956 Results 24 hrs Laboratory Tests Test 01/24/19 19:53 01/24/19 19:56 01/24/19 19:57 01/24/19 20:32 Bedside Glucose 283 mg/dL 279 mg/dL Blood Gas Blood venous Specimen Source Arterial Blood 01/24/2019 8:15: Date Drawn 44 PM Arterial Blood VENOUS LINE Gas Puncture Site Warner Test N/A Venous Blood pH 7.205 Venous Blood 29.9 mmHG pCO2 (Temp Corrected ) Venous Blood 37.8 mmHG pO2 (Temp Corrected ) Venous Blood 11.6 mmol/L HCO3 Venous Blood 57.8 mmHG Oxygen Saturation Venous Blood -15.1 mmol/L Base Excess Venous Blood 11.7 g/dl Total Hemoglobin Venous Blood 57.5 % Oxyhemoglobin Venous Blood 0.3 % Methemoglobin Carboxyhemoglob 0.3 % in Blood Gas 37.0 C Temperature Blood Gas ROOM AIR Modality FiO2 21.0 % Blood Gas MR Notified Whom Blood Gas 01/24/2019 8:21: Notified Time 15 PM White Blood 12.7 10^3/ul Count Red Blood Count 4.40 10^6/ul Hemoglobin 13.3 g/dl Hematocrit 40.1 % Mean 91.1 fl Corpuscular Volume Mean 30.2 pg Corpuscular Hemoglobin Mean 33.2 g/dl Corpuscular Hemoglobin Conc ent Red Cell 12.7 % Distribution Width Platelet Count 250 10^3/UL Mean Platelet 12.9 fl Volume Immature 0.300 % Granulocytes % Neutrophils % 72.3 % Lymphocytes % 22.8 % Monocytes % 3.5 % Eosinophils % 0.9 % Basophils % 0.2 % Nucleated Red 0.0 /100WBC Blood Cells % Immature 0.040 10^3/ul Granulocytes # Neutrophils # 9.2 10^3/ul Lymphocytes # 2.9 10^3/ul Monocytes # 0.4 10^3/ul Eosinophils # 0.1 10^3/ul Basophils # 0.0 10^3/ul Nucleated Red 0.0 10^3/ul Blood Cells # Sodium Level 135 mmol/L Potassium Level 6.3 mmol/L Chloride Level 101 mmol/L Carbon Dioxide 10 mmol/L Level Anion Gap 24 Blood Urea 40 mg/dl Nitrogen Creatinine 2.39 mg/dl Est Glomerular 34 mL/min Filtrat Rate mL/min Glucose Level 291 mg/dl Hemoglobin A1c 6.3 % Calcium Level 10.3 mg/dl Phosphorus 6.6 mg/dl Level Magnesium Level 1.6 mg/dl Test 01/24/19 21:00 01/24/19 21:40 Urine Color YELLOW Urine Clarity SLIGHTLY CLOUDY Urine pH 5.0 Urine Specific 1.013 [place] Urine Ketones 2+ mg/dL Urine Nitrite NEGATIVE mg/dL Urine Bilirubin NEGATIVE mg/dL Urine NEGATIVE mg/dL Urobilinogen Urine Leukocyte NEGATIVE Genet/ul Esterase Urine 3 /HPF Microscopic RBC Urine 3 /HPF Microscopic WBC Urine Bacteria FEW /HPF Urine Mucus FEW /HPF Urine 1+ mg/dL Hemoglobin Urine Glucose 2+ mg/dL Urine Total NEGATIVE mg/dl Protein Bedside Glucose 328 mg/dL Current Medications Medications Dose Sig/Carmina Start Time Status Last (Trade) Ordered Route PRN Stop Time Admin Dose Reason Admin Sodium 660 ml @ ONCE ONCE 01/24/19 DC 01/24/19 Chloride 660 mls/hr IV 20:00 20:02 01/24/19 20:59 Ondansetron 4 mg ONCE STAT 01/24/19 DC 01/24/19 HCl (Zofran IV 19:56 20:02 Inj) 01/24/19 19:58 Potassium 1,000 ml @ Q0M IV 01/24/19 DC Chloride/Sodi 0 mls/hr 20:32 um Chloride 01/24/19 21:38 Potassium 1,000 ml @ Q0M IV 01/24/19 DC Chloride/Dext 0 mls/hr 20:32 noah/ Sod Cl 01/24/19 21:38 Potassium 1,000 ml @ Q0M IV 01/24/19 DC Chloride/Sodi 0 mls/hr 20:32 um Chloride 01/24/19 21:38 Potassium 1,000 ml @ Q0M IV 01/24/19 DC Chloride/Dext 0 mls/hr 20:32 noah/ Sod Cl 01/24/19 21:38 Sodium 1,000 ml @ Q0M IV 01/24/19 DC 01/24/19 Chloride 0 mls/hr 20:32 20:47 01/24/19 21:38 1,000 ml @ Q0M IV 01/24/19 DC 01/24/19 Dextrose/Sodi 0 mls/hr 20:32 20:59 um Chloride 01/24/19 21:38 Insulin 101 ml @ ER DKA 01/24/19 DC 01/24/19 Human 6.67 mls/hr PROTOCOL IV 21:00 21:00 Regular 100 01/24/19 21:38 unit/ Sodium Chloride Lactated 660 ml @ ONCE ONCE 01/24/19 01/24/19 Ringer's 660 mls/hr IV 21:00 20:47 01/24/19 21:59 HYPOGLYCEM 01/24/19 DC Miscellaneous HYPOGLYCEMIA PROTOCOL PRN 21:00 TREATMENT XX 01/24/19 21:38 Information .HYPOGLYCEMIA (* PROTOCOL Miscellaneous Pharmacy Order) Dextrose 50 ml Q15M PRN 01/24/19 DC (D50w IV 21:00 Syringe) .DECREASED 01/24/19 21:38 GLUCOSE Dextrose 25 ml Q15M PRN 01/24/19 DC (D50w IV 21:00 Syringe) .DECREASED 01/24/19 21:38 GLUCOSE 100 mg ONCE ONCE 01/24/19 DC 01/24/19 Hydrocortison IV 21:00 21:18 e 01/24/19 21:01 (Solu-Cortef) Dextrose 50 ml Q15M PRN 01/24/19 (D50w IV For BS 50 21:30 Syringe) or less Dextrose 25 ml Q15M PRN 01/24/19 (D50w IV BS 21:30 Syringe) between 50-70 Diagnostic 1 ea Q1H XX 01/24/19 Test (Pha) 21:30 (Accu-Chek) HYPOGLYCEM 01/24/19 Miscellaneous HYPOGLYCEMIA PROTOCOL PRN 21:30 TREATMENT XX Information Hypoglycemia (* (BS < 70) Miscellaneous Pharmacy Order) Potassium 1,000 ml @ Q0M IV 01/24/19 Chloride/Sodi 0 mls/hr 21:19 um Chloride Potassium 1,000 ml @ Q0M IV 01/24/19 Chloride/Dext 0 mls/hr 21:19 noah/ Sod Cl Potassium 1,000 ml @ Q0M IV 01/24/19 Chloride/Sodi 0 mls/hr 21:19 um Chloride Potassium 1,000 ml @ Q0M IV 01/24/19 Chloride/Dext 0 mls/hr 21:19 noah/ Sod Cl Sodium 1,000 ml @ Q0M IV 01/24/19 Chloride 0 mls/hr 21:19 1,000 ml @ Q0M IV 01/24/19 Dextrose/Sodi 0 mls/hr 21:19 um Chloride Insulin 101 ml @ DKA 01/24/19 Human 6.67 mls/hr PROTOCOL IV 21:30 Regular 100 unit/ Sodium Chloride Please ONCE ONCE 01/24/19 DC Miscellaneous discontinue XX 21:30 ... 01/24/19 21:33 Information (* Miscellaneous Pharmacy Order) Ondansetron 4 mg Q6H PRN 01/24/19 01/24/19 HCl (Zofran IV NAUSEA 21:30 21:45 Inj) AND/OR VOMITING 650 mg Q6H PRN 01/24/19 Acetaminophen PO PAIN 21:30 (Tylenol LEVEL 1-3 OR Liquid) FEVER Morphine 2 mg Q4H PRN 01/24/19 Sulfate IV PAIN 21:30 (morphine) LEVEL 7-10 Famotidine 20 mg Q12 IV 01/25/19 (Pepcid Iv) 09:00 Enoxaparin 30 mg DAILY SC 01/25/19 Sodium 09:00 (Lovenox) 10 mg ONCE ONCE 01/24/19 Metoclopramid IV 22:00 e HCl 01/24/19 22:01 (Reglan) Procedures/MDM EKG: Read by emergency physician Rate/Rhythm: Normal Sinus Rhythm 98 beats/min QRS, ST, T-waves: No ST elevation, no T inversion, RBBB Impression: Abnormal EKG MEDICAL MAKING DECISION: The patient is a 23-year-old male, presenting with acute DKA, acute kidney injury, acute hyperphosphatemia, acute hypomagnesemia, acute hyperkalemia. He was treated with Cruz catheter due to acute kidney injury, hydrocortisone 100 mg IV due to history of renal sufficiency He was treated for DKA via protocol Critical Care: Time: 35 minutes excluding all billable procedures. Treatments/Evaluations: Close monitoring and treatment of unstable vital signs, cardiorespiratory, and neurologic status, while maintaining tight balance of fluid, respiratory, and cardiac interventions. Departure Diagnosis: Primary Impression: DKA, type 1 Additional Impressions: Hyperkalemia SALOME (acute kidney injury) Hyperphosphatemia Hypomagnesemia Anemia Condition: Critical Comments I discussed the findings with the patient. I discussed the patient with Dr Vibha Rosales at 8:40 p , who was made aware of the lab, the treatment, the patient condition. The patient is admitted to ICU Disclaimer: Inadvertent spelling and grammatical errors are likely due to EHR/dictation software use and do not reflect on the overall quality of patient care. Also, please note that the electronic time recorded on this note does not necessarily reflect the actual time of the patient encounter. CARO TERAN MD January 24, 2019 19:56
[2019-01-24] MEDS ORDERED: SOD CHLORIDE 0.9% 660 ML IV ONE (20:00)
[2019-01-24] MEDS ORDERED: INSU100C SQ (20:12)
[2019-01-24] MEDS ORDERED: LEVO50TA7 PO (20:21)
[2019-01-24] MEDS ORDERED: DEXTROSE 10%/0.45% NACL 1,000 ML IV SCH ×2 (20:32→21:19)
[2019-01-24] MEDS ORDERED: SOD CHLORIDE 0.9% 1,000 ML IV SCH ×2 (20:32→21:19)
[2019-01-24] MEDS ORDERED: NS + KCL 30 MEQ 1,000 ML IV SCH ×2 (20:32→21:19)
[2019-01-24] MEDS ORDERED: D10/0.45% NACL + KCL 30 MEQ 1,000 ML IV SCH ×2 (20:32→21:19)
[2019-01-24] MEDS ORDERED: D10/0.45% NACL + KCL 40 MEQ 1,000 ML IV SCH ×2 (20:32→21:19)
[2019-01-24] MEDS ORDERED: NS + KCL 40 MEQ 1,000 ML IV SCH ×2 (20:32→21:19)
[2019-01-24] MEDS ORDERED: HYDROCORTISONE 100 MG INJ IV ONE (21:00)
[2019-01-24] MEDS ORDERED: DEXTROSE 50% 50 ML SYRINGE IV PRN ×4 (21:00→21:30)
[2019-01-24] MEDS ORDERED: INSULIN REGULAR, HUMAN 100 UNIT in SOD CHLORIDE 0.9% 100 ML IV SCH ×4 (21:00→21:30)
[2019-01-24] MEDS ORDERED: LACTATED RINGER'S 660 ML IV ONE (21:00)
[2019-01-24] MEDS: ACCU-CHEK XX SCH ×3 (21:30→23:30)
[2019-01-24] MEDS ORDERED: ACETAMINOPHEN 650MG/20.3ML CUP PO PRN (21:30)
[2019-01-24] MEDS ORDERED: morphine 2 MG INJ IV PRN (21:30)
[2019-01-24] MEDS ORDERED: ONDANSETRON 4 MG INJ IV PRN (21:30)
[2019-01-24] MEDS ORDERED: METOCLOPRAMIDE 10 MG INJ IV ONE (22:00)
[2019-01-24 22:40] VITALS: PULSE 105
[2019-01-24 23:21] VITALS: Ht 177.8 cm; Wt 73.2 kg
[2019-01-25] VITALS (24 sets, daily range): BP systolic 78–121; BP diastolic 38–73; PULSE 65–109; RESP 10–24
[2019-01-25] MEDS: ACCU-CHEK XX SCH ×14 (00:30→17:25)
[2019-01-25] MEDS ORDERED: MAGNESIUM SULFATE 2 GM/50 ML 50 ML IVPB ONE (02:30)
[2019-01-25] MEDS ORDERED: SOD CHLORIDE 0.9% 250 ML IV ONE ×3 (04:30→11:30)
[2019-01-25] MEDS ORDERED: INSULIN GLARGINE [LANTus] (100 UNITS/ML) SYG SC ONE (07:30)
[2019-01-25] MEDS: FAMOTIDINE 20 MG INJ IV SCH ×2 (08:14→20:56)
[2019-01-25] MEDS: ENOXAPARIN 30 MG/0.3 ML SYG SC SCH (08:16)
--- NOTE | 2019-01-25 10:23 | HP ---
Date/Time of Note Date/Time of Note DATE: 01/25/19 TIME: 10:16 Assessment/Plan VTE Prophylaxis SCD applied (from Nsg): Yes Pharmacological prophylaxis: LMWH Lines/Catheters IV Catheter Type (from Nrsg): Peripheral IV Urinary Cath still in place: Yes Reason Cath still needed: other (indicate) Assessment/Plan Assessment/Plan - Diabetic ketoacidosis associated with type 1 diabetes mellitus. Continue insulin drip, IV fluids, electrolyte replacement. Dr. Hunter is asked to see patient in endocrinology consultation. -Systemic inflammatory response syndrome secondary to DKA however will rule out infection will obtain influenza swab due to complaint of flulike symptoms. - Adrenal insufficiency. Further recommendations based on clinical course. Plan of care discussed with Dr. Ortiz. Result Diagram: 01/24/19195601/25/19 0908 Results 24hrs Laboratory Tests Test 01/24/19 19:53 01/24/19 19:56 01/24/19 19:57 01/24/19 20:32 Bedside Glucose 283 H 279 H Blood Gas Blood venous Specimen Source Arterial Blood 01/24/2019 8:15 Date Drawn :44 PM Arterial Blood VENOUS LINE Gas Puncture Site Warner Test N/A Venous Blood pH 7.205 L Venous Blood 29.9 L pCO2 (Temp Corrected ) Venous Blood 37.8 H pO2 (Temp Corrected ) Venous Blood 11.6 L HCO3 Venous Blood 57.8 Oxygen Saturation Venous Blood -15.1 L Base Excess Venous Blood 11.7 Total Hemoglobin Venous Blood 57.5 Oxyhemoglobin Venous Blood 0.3 Methemoglobin Carboxyhemoglob 0.3 in Blood Gas 37.0 Temperature Blood Gas ROOM AIR Modality FiO2 21.0 Blood Gas MR Notified Whom Blood Gas 01/24/2019 8:21 Notified Time :15 PM White Blood 12.7 #H Count Red Blood Count 4.40 #L Hemoglobin 13.3 #L Hematocrit 40.1 #L Mean 91.1 Corpuscular Volume Mean 30.2 Corpuscular Hemoglobin Mean 33.2 Corpuscular Hemoglobin Conc ent Red Cell 12.7 Distribution Width Platelet Count 250 # Mean Platelet 12.9 H Volume Immature 0.300 Granulocytes % Neutrophils % 72.3 Lymphocytes % 22.8 Monocytes % 3.5 Eosinophils % 0.9 Basophils % 0.2 Nucleated Red 0.0 Blood Cells % Immature 0.040 H Granulocytes # Neutrophils # 9.2 H Lymphocytes # 2.9 Monocytes # 0.4 Eosinophils # 0.1 Basophils # 0.0 Nucleated Red 0.0 Blood Cells # Sodium Level 135 Potassium Level 6.3 *H Chloride Level 101 Carbon Dioxide 10 L Level Anion Gap 24 H Blood Urea 40 H Nitrogen Creatinine 2.39 H Est Glomerular 34 L Filtrat Rate mL/min Glucose Level 291 H Hemoglobin A1c 6.3 H Calcium Level 10.3 H Phosphorus 6.6 H Level Magnesium Level 1.6 L Test 01/24/19 21:00 01/24/19 21:40 01/24/19 21:59 01/24/19 22:32 Urine Color YELLOW Urine Clarity SLIGHTLY CLOUDY A Urine pH 5.0 Urine Specific 1.013 [place] Urine Ketones 2+ H Urine Nitrite NEGATIVE Urine Bilirubin NEGATIVE Urine NEGATIVE Urobilinogen Urine Leukocyte NEGATIVE Esterase Urine 3 Microscopic RBC Urine 3 Microscopic WBC Urine Bacteria FEW A Urine Mucus FEW A Urine 1+ H Hemoglobin Urine Glucose 2+ H Urine Total NEGATIVE Protein Bedside Glucose 328 H Sodium Level 134 L Potassium Level 7.5 *H Chloride Level 107 Carbon Dioxide 9 *L Level Anion Gap 18 H Blood Urea 38 H Nitrogen Creatinine 1.90 H Est Glomerular 44 L Filtrat Rate mL/min Glucose Level 326 H Calcium Level 8.8 Phosphorus 5.4 H Level Magnesium Level 1.4 L Blood Gas Blood venous Specimen Source Arterial Blood 01/24/2019 11:0 Date Drawn 4:43 PM Arterial Blood VENOUS LINE Gas Puncture Site Warner Test N/A Venous Blood pH 7.230 L Venous Blood 26.3 L pCO2 (Temp Corrected ) Venous Blood 43.6 H pO2 (Temp Corrected ) Venous Blood 10.8 L HCO3 Venous Blood 71.1 Oxygen Saturation Venous Blood -15.2 L Base Excess Venous Blood 12.0 Total Hemoglobin Venous Blood 70.7 Oxyhemoglobin Venous Blood 0.3 Methemoglobin Carboxyhemoglob 0.3 in Blood Gas 37.0 Temperature Blood Gas ROOM AIR Modality FiO2 21.0 Blood Gas AA Notified Whom Blood Gas 01/24/2019 11:1 Notified Time 1:36 PM Test 01/24/19 22:56 01/24/19 23:47 01/25/19 00:32 01/25/19 01:10 Bedside Glucose 315 H 316 H 251 H Blood Gas Blood venous Specimen Source Arterial Blood 01/25/2019 1:10 Date Drawn :56 AM Arterial Blood VENOUS LINE Gas Puncture Site Warner Test N/A Venous Blood pH 7.300 L Venous Blood 33.3 L pCO2 (Temp Corrected ) Venous Blood 41.5 H pO2 (Temp Corrected ) Venous Blood 16.0 L HCO3 Venous Blood 73.6 Oxygen Saturation Venous Blood -9.3 L Base Excess Venous Blood 13.2 Total Hemoglobin Venous Blood 73.0 Oxyhemoglobin Venous Blood 0.5 Methemoglobin Carboxyhemoglob 0.3 in Blood Gas 37.0 Temperature Blood Gas ROOM AIR Modality FiO2 21.0 Blood Gas AA Notified Whom Blood Gas 01/25/2019 1:18 Notified Time :34 AM Sodium Level 136 Potassium Level 6.1 *H Chloride Level 106 Carbon Dioxide 14 L Level Anion Gap 16 H Blood Urea 39 H Nitrogen Creatinine 1.80 H Est Glomerular 47 L Filtrat Rate mL/min Glucose Level 274 H Calcium Level 9.1 Phosphorus 2.7 # Level Magnesium Level 1.4 L Test 01/25/19 02:04 01/25/19 03:13 01/25/19 04:00 01/25/19 04:32 Bedside Glucose 193 189 Sodium Level 137 Potassium Level 4.7 Chloride Level 110 Carbon Dioxide 18 L Level Anion Gap 9 # Blood Urea 36 H Nitrogen Creatinine 1.69 H Est Glomerular 50 L Filtrat Rate mL/min Glucose Level 222 H Calcium Level 8.9 Phosphorus 1.7 #L Level Magnesium Level 1.4 L Blood Gas Blood venous Specimen Source Arterial Blood 01/25/2019 5:00 Date Drawn :32 AM Arterial Blood VENOUS LINE Gas Puncture Site Warner Test N/A Venous Blood pH 7.375 Venous Blood 28.9 L pCO2 (Temp Corrected ) Venous Blood 52.3 H pO2 (Temp Corrected ) Venous Blood 16.5 L HCO3 Venous Blood 86.1 H Oxygen Saturation Venous Blood -7.5 L Base Excess Venous Blood 10.5 Total Hemoglobin Venous Blood 85.5 Oxyhemoglobin Venous Blood 0.4 Methemoglobin Carboxyhemoglob 0.3 in Blood Gas 37.0 Temperature Blood Gas ROOM AIR Modality FiO2 21.0 Blood Gas AA Notified Whom Blood Gas 01/25/2019 5:08 Notified Time :17 AM Test 01/25/19 04:38 01/25/19 05:21 01/25/19 06:09 01/25/19 07:04 Bedside Glucose 246 H 237 H 240 H 264 H Test 01/25/19 08:13 01/25/19 09:02 01/25/19 09:08 01/25/19 09:58 Bedside Glucose 225 H 220 158 Sodium Level 136 Potassium Level 5.1 Chloride Level 112 H Carbon Dioxide 18 L Level Anion Gap 6 Blood Urea 33 H Nitrogen Creatinine 1.52 H Est Glomerular 57 L Filtrat Rate mL/min Glucose Level 186 Calcium Level 9.0 Phosphorus 1.5 L Level Magnesium Level 2.0 HPI/ROS Admit Date/Time Admit Date/Time January 24, 2019 at 20:39 Hx of Present Illness The patient is 23-year-old male with adrenal insufficiency and diabetes mellitus type 1 managed with insulin via Omni pump. Patient presented to the emergency room last night with complaints of vomiting, generalized body weakness for 1 day, intermittent cough. Patient denies any chest pain denies shortness of breath denies diarrhea constipation denies dysuria. Patient stated that she has been compliant and had the insulin supply pump at home. Patient denies any alcohol or illicit drug use. Patient was diagnosed with diabetic ketoacidosis and was started on IV fluids as well as insulin drip and admitted for further evaluation and management to intensive care unit. ROS 12 point review of system is negative except for what mentioned in HPI PMH/Family/Social Past Medical History Medical History: diabetes, other (Adrenal insufficiency) Medications Current Medications Dextrose (D50w Syringe) 50 ml Q15M PRN IV For BS 50 or less; Start 01/24/19 at 21:30 Dextrose (D50w Syringe) 25 ml Q15M PRN IV BS between 50-70; Start 01/24/19 at 21:30 Diagnostic Test (Pha) (Accu-Chek) 1 ea Q1H XX Last administered on 01/25/19at 09:18; Admin Dose 1 EA; Start 01/24/19 at 21:30 Miscellaneous Information (* Miscellaneous Pharmacy Order) HYPOGLYCEMIA TREATMENT HYPOGLYCEM PROTOCOL PRN XX Hypoglycemia (BS < 70); Start 01/24/19 at 21:30 Potassium Chloride/Sodium Chloride 1,000 ml @ 0 mls/hr Q0M IV ; Start 01/24/19 at 21:19 Potassium Chloride/Dextrose/ Sod Cl 1,000 ml @ 0 mls/hr Q0M IV ; Start 01/24/19 at 21:19 Potassium Chloride/Sodium Chloride 1,000 ml @ 0 mls/hr Q0M IV Last administered on 01/25/19 08:10; Admin Dose 150 MLS/HR; Start 01/24/19 at 21:19 Potassium Chloride/Dextrose/ Sod Cl 1,000 ml @ 0 mls/hr Q0M IV Last admin istered on 01/25/19at 07:40; Admin Dose 100 MLS/HR; Start 01/24/19 at 21:19 Sodium Chloride 1,000 ml @ 0 mls/hr Q0M IV Last administered on 01/25/19at 03:37; Admin Dose 50 MLS/HR; Start 01/24/19 at 21:19 Dextrose/Sodium Chloride 1,000 ml @ 0 mls/hr Q0M IV Last administered on 01/25/19at 05:35; Admin Dose 100 MLS/HR; Start 01/24/19 at 21:19 Insulin Human Regular 100 unit/ Sodium Chloride 101 ml @ 6.67 mls/hr DKA PROTOCOL IV Last administered on 01/25/19 09:48; Admin Dose 6.67 MLS/HR; Start 01/24/19 at 21:30 Ondansetron HCl (Zofran Inj) 4 mg Q6H PRN IV NAUSEA AND/OR VOMITING Last administered on 01/24/19at 21:45; Admin Dose 4 MG; Start 01/24/19 at 21:30 Acetaminophen (Tylenol Liquid) 650 mg Q6H PRN PO PAIN LEVEL 1-3 OR FEVER; Start 01/24/19 at 21:30 Morphine Sulfate (morphine) 2 mg Q4H PRN IV PAIN LEVEL 7-10; Start 01/24/19 at 21:30 Famotidine (Pepcid Iv) 20 mg Q12 IV Last administered on 01/25/19 08:14; Admin Dose 20 MG; Start 01/25/19 at 09:00 Enoxaparin Sodium (Lovenox) 30 mg DAILY SC Last administered on 01/25/19 08:16; Admin Dose 30 MG; Start 01/25/19 at 09:00 Sodium Chloride 250 ml @ 250 mls/hr Q1H ONCE IV Last administered on 01/25/19 09:43; Admin Dose 250 MLS/HR; Start 01/25/19 at 10:00; Stop 01/25/19 at 10:59 Coded Allergies: No Known Allergy (Unverified , 01/24/19) Past Surgical History Past Surgical Hx: no surgical history Family History Significant Family History: diabetes (brother and uncle on his father's side with diabetes mellitus type 1.) Social History Alcohol Use: none Smoking Status: Former smoker Drug Use: none Exam/Review of Systems Vital Signs Vitals Vital Signs Date Temp Pulse Resp B/P (MAP) Pulse Ox O2 O2 Flow FiO2 Time Delivery Rate 01/25/19 66 11 85/51 (62) 100 Room Air 10:00 01/25/19 98.4 08:00 Intake and Output 01/24/19 01/24/19 01/25/19 1515:00 23:00 07:00 IntakeIntake Total 660 ml 150 ml OutputOutput Total 65 ml 415 ml BalanceBalance 595 ml -265 ml Exam Constitutional: alert, oriented Neck: supple Respiratory: clear to auscultation Cardiovascular: regular rate and rhythm Gastrointestinal: soft, non-tender Musculoskeletal: nl extremities to inspection Extremities: normal pulses Skin: nl RENALDO Dawson January 25, 2019 10:23
[2019-01-25] MEDS: INSULIN ASPART [NOVOLOG] 3 ML PEN SC SCH ×5 (12:30→20:54)
[2019-01-25] MEDS ORDERED: GLUCOSE GEL 15 GRAM TUBE BUCCAL PRN (14:00)
[2019-01-25] MEDS ORDERED: DEXTROSE 50% 50 ML SYRINGE IV PRN ×2 (14:00)
[2019-01-25] MEDS ORDERED: GLUCOSE GEL 15 GRAM TUBE PO PRN ×2 (14:00)
[2019-01-25] MEDS ORDERED: GLUCAGON 1 MG INJ IM PRN (14:00)
[2019-01-25] MEDS ORDERED: HYDROCORTISONE 20 MG TAB PO ONE (19:00)
[2019-01-25] MEDS: HYDROCORTISONE 5 MG TAB PO SCH (20:52)
[2019-01-26] VITALS (16 sets, daily range): BP systolic 86–148; BP diastolic 38–80; PULSE 52–82; RESP 15–24
[2019-01-26] MEDS: ACCU-CHEK XX SCH ×4 (02:00→17:25)
--- NOTE | 2019-01-26 07:04 | CONS ---
Assessment/Plan Assessment/Plan Problems: (1) DKA, type 1 Status: Acute Comment: Clearing nicely with DKA protocol. Plan for transfer out of the intensive care unit today on his multiple daily injection regimen. At discharge he will resume return to using his pump therapy. Qualifiers: Qualified Codes: E10.10 - Type 1 diabetes mellitus with ketoacidosis without coma (2) Type 1 diabetes mellitus without complications Status: Chronic Comment: Noted. New treatment using both CGM and pump (3) Adrenal insufficiency Status: Chronic Comment: He is presently on replacement therapy. (I wrote the orders last night) (4) Hypothyroidism Status: Chronic Comment: Continue levothyroxine replacement therapy Qualifiers: Qualified Codes: E03.9 - Hypothyroidism, unspecified (5) Anemia Status: Acute Comment: Basic evaluation Consultation Date/Type/Reason Admit Date/Time January 24, 2019 at 20:39 Date of Consultation: January 25, 2019 Type of Consult Endocrinology Reason for Consultation Diabetes mellitus type 1 with DKA; adrenal insufficiency; hypothyroidism; polyglandular autoimmune endocrine failure syndrome Requesting Provider: RENALDO GONZALES Date/Time of Note DATE: 01/26/19 TIME: 06:58 Hx of Present Illness 23-year-old gentleman known to us from prior visits as well as outpatient. He had presented with diabetic ketoacidosis a few years ago. 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 He in addition has thyroid insufficiency. He does not have mucocutaneous candidiasis. He has maintained on insulin pump using an Omni pod system and continuous glucose monitoring is a Dex com system. He developed a GI illness and tried to manage this on his own with more insulin and trying to keep hydrated. However he had such significant diarrhea that he became dehydrated and ultimately presented with mild diabetic ketoacidosis. Constitutional: no complaints Eyes: no complaints ENT: no complaints Respiratory: no complaints Cardiovascular: no complaints Gastrointestinal: pain, diarrhea, nausea Genitourinary: no complaints Musculoskeletal: no complaints Skin: no complaints Neurologic: no complaints Past Medical History Medical History: diabetes (Type I), other (Adrenal insufficiency; hypothyroidism;) Home Meds Reported Medications Levothyroxine Sodium* (Levothyroxine Sodium*) 50 Mcg Tablet, 50 MCG PO BEFORE BREAKFAST, #30 TAB 01/24/19 Insulin Lispro (Humalog) 100 Unit/1 Ml Cartridge, 8 UNIT SQ VIA A PUMP, EA 8 UNITS WITH EACH PUMP 01/24/19 Discontinued Reported Medications Insulin Lispro (Humalog) 100 Unit/1 Ml Cartridge, 0 SQ VIA A PUMP, EA PT USES A PUMP 06/06/18 Discontinued Scripts Hydrocortisone (Hydrocortisone) 5 Mg Tablet, 2.5 MG PO QHS for 30 Days, TAB Prov:CHRISTIANRENALDO 06/09/18 Hydrocortisone (Hydrocortisone) 5 Mg Tablet, 15 MG PO QAM for 30 Days, TAB Prov:HEWILLEMJUANRENALDO 06/09/18 Hydrocortisone (Hydrocortisone) 5 Mg Tablet, 7.5 MG PO PC LUNCH for 30 Days, TAB Prov:CHRISTIANRENALDO 06/09/18 Medications Current Medications Dextrose (D50w Syringe) 50 ml Q15M PRN IV For BS 50 or less; Start 01/24/19 at 21:30; Status Hold Dextrose (D50w Syringe) 25 ml Q15M PRN IV BS between 50-70; Start 01/24/19 at 21:30; Status Hold Miscellaneous Information (* Miscellaneous Pharmacy Order) HYPOGLYCEMIA TREATMEN T HYPOGLYCEM PROTOCOL PRN XX Hypoglycemia (BS < 70); Start 01/24/19 at 21:30 Ondansetron HCl (Zofran Inj) 4 mg Q6H PRN IV NAUSEA AND/OR VOMITING Last administered on 01/24/19at 21:45; Admin Dose 4 MG; Start 01/24/19 at 21:30 Acetaminophen (Tylenol Liquid) 650 mg Q6H PRN PO PAIN LEVEL 1-3 OR FEVER; Start 01/24/19 at 21:30 Morphine Sulfate (morphine) 2 mg Q4H PRN IV PAIN LEVEL 7-10; Start 01/24/19 at 21:30 Famotidine (Pepcid Iv) 20 mg Q12 IV Last administered on 01/25/19at 20:56; Admin Dose 20 MG; Start 01/25/19 at 09:00 Enoxaparin Sodium (Lovenox) 30 mg DAILY SC Last administered on 01/25/19at 08:16; Admin Dose 30 MG; Start 01/25/19 at 09:00 Diagnostic Test (Pha) (Accu-Chek) 1 ea 02 XX ; Start 01/26/19 at 02:00 Insulin Glargine (Lantus) 18 units DAILY@0800 SC ; Start 01/26/19 at 08:00 Insulin Aspart (Novolog Insulin Pen) 6 unit WITH MEALS SC Last administered on 01/25/19at 17:28; Admin Dose 6 UNIT; Start 01/25/19 at 11:30 Insulin Aspart (Novolog Insulin Pen) NOVOLOG *MILD* ALGORITHM WITH MEALS BEDTIME SC ; Start 01/25/19 at 11:30 Miscellaneous Information 1 ea NOTE XX ; Start 01/25/19 at 14:00 Glucose (Glutose) 15 gm Q15M PRN PO DECREASED GLUCOSE; Start 01/25/19 at 14:00 Glucose (Glutose) 22.5 gm Q15M PRN PO DECREASED GLUCOSE; Start 01/25/19 at 14:00 Dextrose (D50w Syringe) 25 ml Q15M PRN IV DECREASED GLUCOSE; Start 01/25/19 at 14:00 Dextrose (D50w Syringe) 50 ml Q15M PRN IV DECREASED GLUCOSE; Start 01/25/19 at 14:00 Glucagon (Glucagen) 1 mg Q15M PRN IM DECREASED GLUCOSE; Start 01/25/19 at 14:00 Glucose (Glutose) 15 gm Q15M PRN BUCCAL DECREASED GLUCOSE; Start 01/25/19 at 14:00 Diagnostic Test (Pha) (Accu-Chek) 1 ea BEFORE MEALS XX Last administered on 01/25/19at 17:25; Admin Dose 1 EA; Start 01/25/19 at 17:30 Hydrocortisone (Cortef) 15 mg QAM PO ; Start 01/26/19 at 09:00 Hydrocortisone (Cortef) 5 mg AC DINNER PO ; Start 01/26/19 at 17:05 Hydrocortisone (Cortef) 2.5 mg QHS PO Last administered on 01/25/19at 20:52; Admin Dose 2.5 MG; Start 01/25/19 at 21:00 Allergies: Coded Allergies: No Known Allergy (Unverified , 01/24/19) Past Surgical History Past Surgical Hx: no surgical history Family History Significant Family History: diabetes (Mother has type 1 diabetes) Social History Alcohol Use: none Smoking Status: Former smoker Drug Use: none Exam/Review of Systems Exam Vitals Vital Signs Date Temp Pulse Resp B/P (MAP) Pulse Ox O2 O2 Flow FiO2 Time Delivery Rate 01/26/19 71 20 109/53 Room Air 06:00 (71) 01/26/19 98.0 04:00 01/25/19 98 17:00 Intake and Output 01/25/19 01/25/19 01/26/19 1515:00 23:00 07:00 IntakeIntake Total 799.87 ml 2150 ml OutputOutput Total 650 ml 590 ml 470 ml BalanceBalance 149.87 ml 1560 ml -470 ml Constitutional: alert, oriented Head: normocephalic, atraumatic Eyes: nl conjunctiva, EOMI, nl lids Neck: supple, non-tender Respiratory: clear to auscultation, normal air movement Cardiovascular: regular rate and rhythm, nl pulses Results Result Diagram: 01/26/19 0633 01/26/19 0400 Results 24hrs Laboratory Tests Test 01/25/19 07:04 01/25/19 08:13 01/25/19 09:02 01/25/19 09:08 Bedside Glucose 264 H 225 H 220 Sodium Level 136 Potassium Level 5.1 Chloride Level 112 H Carbon Dioxide Level 18 L Anion Gap 6 Blood Urea Nitrogen 33 H Creatinine 1.52 H Est Glomerular 57 L Filtrat Rate mL/min Glucose Level 186 Calcium Level 9.0 Phosphorus Level 1.5 L Magnesium Level 2.0 Test 01/25/19 09:58 01/25/19 11:06 01/25/19 12:00 01/25/19 12:34 Bedside Glucose 158 108 103 106 Test 01/25/19 17:24 01/25/19 20:28 01/25/19 20:53 01/26/19 01:23 Bedside Glucose 115 78 253 H Sodium Level 137 Potassium Level 4.6 Chloride Level 113 H Carbon Dioxide Level 18 L Anion Gap 6 Blood Urea Nitrogen 26 H Creatinine 1.35 H Est Glomerular > 60 Filtrat Rate mL/min Glucose Level 78 # Calcium Level 8.4 Phosphorus Level 3.3 Magnesium Level 1.6 L Test 01/26/19 04:00 01/26/19 06:33 White Blood Count 4.9 # 4.8 Red Blood Count 2.90 #L 3.00 L Hemoglobin 8.9 #L 9.1 L Hematocrit 26.1 #L 27.6 L Mean Corpuscular 90.0 92.0 Volume Mean Corpuscular 30.7 30.3 Hemoglobin Mean Corpuscular 34.1 33.0 Hemoglobin Concent Red Cell 13.3 13.2 Distribution Width Platelet Count 125 #L 133 L Mean Platelet Volume 12.9 H 12.2 H Immature 0.200 0.000 L Granulocytes % Neutrophils % 48.2 43.5 Lymphocytes % 43.2 45.7 Monocytes % 7.4 8.9 Eosinophils % 1.0 1.7 Basophils % 0.0 0.2 Nucleated Red Blood 0.0 0.0 Cells % Immature 0.010 0.000 Granulocytes # Neutrophils # 2.4 2.1 Lymphocytes # 2.1 2.2 Monocytes # 0.4 0.4 Eosinophils # 0.1 0.1 Basophils # 0.0 0.0 Nucleated Red Blood 0.0 0.0 Cells # Sodium Level 135 Potassium Level 6.4 *H Chloride Level 112 H Carbon Dioxide Level 16 L Anion Gap 7 Blood Urea Nitrogen 24 H Creatinine 1.14 Est Glomerular > 60 Filtrat Rate mL/min Glucose Level 298 #H Calcium Level 8.3 L Phosphorus Level 3.1 Magnesium Level 1.5 L Medications Medication Current Medications Dextrose (D50w Syringe) 50 ml Q15M PRN IV For BS 50 or less; Start 01/24/19 at 21:30; Status Hold Dextrose (D50w Syringe) 25 ml Q15M PRN IV BS between 50-70; Start 01/24/19 at 21:30; Status Hold Miscellaneous Information (* Miscellaneous Pharmacy Order) HYPOGLYCEMIA TREATMEN T HYPOGLYCEM PROTOCOL PRN XX Hypoglycemia (BS < 70); Start 01/24/19 at 21:30 Ondansetron HCl (Zofran Inj) 4 mg Q6H PRN IV NAUSEA AND/OR VOMITING Last administered on 01/24/19at 21:45; Admin Dose 4 MG; Start 01/24/19 at 21:30 Acetaminophen (Tylenol Liquid) 650 mg Q6H PRN PO PAIN LEVEL 1-3 OR FEVER; Start 01/24/19 at 21:30 Morphine Sulfate (morphine) 2 mg Q4H PRN IV PAIN LEVEL 7-10; Start 01/24/19 at 21:30 Famotidine (Pepcid Iv) 20 mg Q12 IV Last administered on 01/25/19at 20:56; Admin Dose 20 MG; Start 01/25/19 at 09:00 Enoxaparin Sodium (Lovenox) 30 mg DAILY SC Last administered on 01/25/19at 08:16; Admin Dose 30 MG; Start 01/25/19 at 09:00 Diagnostic Test (Pha) (Accu-Chek) 1 ea 02 XX ; Start 01/26/19 at 02:00 Insulin Glargine (Lantus) 18 units DAILY@0800 SC ; Start 01/26/19 at 08:00 Insulin Aspart (Novolog Insulin Pen) 6 unit WITH MEALS SC Last administered on 01/25/19at 17:28; Admin Dose 6 UNIT; Start 01/25/19 at 11:30 Insulin Aspart (Novolog Insulin Pen) NOVOLOG *MILD* ALGORITHM WITH MEALS BEDTIME SC ; Start 01/25/19 at 11:30 Miscellaneous Information 1 ea NOTE XX ; Start 01/25/19 at 14:00 Glucose (Glutose) 15 gm Q15M PRN PO DECREASED GLUCOSE; Start 01/25/19 at 14:00 Glucose (Glutose) 22.5 gm Q15M PRN PO DECREASED GLUCOSE; Start 01/25/19 at 14:00 Dextrose (D50w Syringe) 25 ml Q15M PRN IV DECREASED GLUCOSE; Start 01/25/19 at 14:00 Dextrose (D50w Syringe) 50 ml Q15M PRN IV DECREASED GLUCOSE; Start 01/25/19 at 14:00 Glucagon (Glucagen) 1 mg Q15M PRN IM DECREASED GLUCOSE; Start 01/25/19 at 14:00 Glucose (Glutose) 15 gm Q15M PRN BUCCAL DECREASED GLUCOSE; Start 01/25/19 at 14:00 Diagnostic Test (Pha) (Accu-Chek) 1 ea BEFORE MEALS XX Last administered on 01/25/19at 17:25; Admin Dose 1 EA; Start 01/25/19 at 17:30 Hydrocortisone (Cortef) 15 mg QAM PO ; Start 01/26/19 at 09:00 Hydrocortisone (Cortef) 5 mg AC DINNER PO ; Start 01/26/19 at 17:05 Hydrocortisone (Cortef) 2.5 mg QHS PO Last administered on 01/25/19at 20:52; Admin Dose 2.5 MG; Start 01/25/19 at 21:00 JS EUCEDA MD January 26, 2019 07:04
[2019-01-26] MEDS: INSULIN ASPART [NOVOLOG] 3 ML PEN SC SCH ×7 (07:34→21:00)
[2019-01-26] MEDS: INSULIN GLARGINE [LANTus] (100 UNITS/ML) SYG SC SCH (07:45)
[2019-01-26] MEDS: ENOXAPARIN 30 MG/0.3 ML SYG SC SCH (07:49)
[2019-01-26] MEDS: FAMOTIDINE 20 MG INJ IV SCH ×2 (07:56→21:22)
[2019-01-26] MEDS: HYDROCORTISONE 5 MG TAB PO SCH ×3 (07:56→21:21)
--- NOTE | 2019-01-26 17:28 | PN ---
Date/Time of Note Date/Time of Note DATE: 01/26/19 TIME: 17:24 Assessment/Plan VTE Prophylaxis Risk score (from Ns)>0 risk: 0 SCD applied (from Ns): Yes Pharmacological prophylaxis: LMWH Lines/Catheters IV Catheter Type (from Nrs): Peripheral IV Urinary Cath still in place: No Assessment/Plan Hospital Course Assessment/Plan - Diabetic ketoacidosis associated with type 1 diabetes mellitus, resolving. Continue Lantus and premeal Novolog. Dr. Hunter is following in endocrinology c onsultation. - Systemic inflammatory response syndrome secondary to DKA however will rule out infection will obtain influenza swab due to complaint of flulike symptoms. - Adrenal insufficiency. Continue hydrocortisone. - Hypothyroidism, continue Synthroid. Further recommendations based on clinical course. Plan of care discussed with Dr. Ortiz. Result Diagram: 01/26/19 0633 01/26/1933 Results 24hrs Laboratory Tests Test 01/25/19 20:28 01/25/19 20:53 01/26/19 01:23 01/26/19 04:00 Sodium Level 137 135 Potassium Level 4.6 6.4 *H Chloride Level 113 H 112 H Carbon Dioxide Level 18 L 16 L Anion Gap 6 7 Blood Urea Nitrogen 26 H 24 H Creatinine 1.35 H 1.14 Est Glomerular > 60 > 60 Filtrat Rate mL/min Glucose Level 78 # 298 #H Calcium Level 8.4 8.3 L Phosphorus Level 3.3 3.1 Magnesium Level 1.6 L 1.5 L Bedside Glucose 78 253 H White Blood Count 4.9 # Red Blood Count 2.90 #L Hemoglobin 8.9 #L Hematocrit 26.1 #L Mean Corpuscular 90.0 Volume Mean Corpuscular 30.7 Hemoglobin Mean Corpuscular 34.1 Hemoglobin Concent Red Cell 13.3 Distribution Width Platelet Count 125 #L Mean Platelet Volume 12.9 H Immature 0.200 Granulocytes % Neutrophils % 48.2 Lymphocytes % 43.2 Monocytes % 7.4 Eosinophils % 1.0 Basophils % 0.0 Nucleated Red Blood 0.0 Cells % Immature 0.010 Granulocytes # Neutrophils # 2.4 Lymphocytes # 2.1 Monocytes # 0.4 Eosinophils # 0.1 Basophils # 0.0 Nucleated Red Blood 0.0 Cells # Test 01/26/19 06:33 01/26/19 07:29 01/26/19 12:08 White Blood Count 4.8 Red Blood Count 3.00 L Hemoglobin 9.1 L Hematocrit 27.6 L Mean Corpuscular 92.0 Volume Mean Corpuscular 30.3 Hemoglobin Mean Corpuscular 33.0 Hemoglobin Concent Red Cell 13.2 Distribution Width Platelet Count 133 L Mean Platelet Volume 12.2 H Immature 0.000 L Granulocytes % Neutrophils % 43.5 Lymphocytes % 45.7 Monocytes % 8.9 Eosinophils % 1.7 Basophils % 0.2 Nucleated Red Blood 0.0 Cells % Immature 0.000 Granulocytes # Neutrophils # 2.1 Lymphocytes # 2.2 Monocytes # 0.4 Eosinophils # 0.1 Basophils # 0.0 Nucleated Red Blood 0.0 Cells # Sodium Level 137 Potassium Level 4.9 Chloride Level 112 H Carbon Dioxide Level 17 L Anion Gap 8 Blood Urea Nitrogen 23 H Creatinine 1.12 Est Glomerular > 60 Filtrat Rate mL/min Glucose Level 275 H Calcium Level 8.6 Iron Level 52 Total Iron Binding 213 L Capacity Percent Iron 24 Saturation Vitamin B12 Level 726 Bedside Glucose 289 H 168 Exam/Review of Systems Exam Vitals Vital Signs Date Temp Pulse Resp B/P (MAP) Pulse Ox O2 O2 Flow FiO2 Time Delivery Rate 01/26/19 97.9 63 19 105/53 100 Room Air 14:00 (70) Intake and Output 01/25/19 01/25/19 01/26/19 1515:00 23:00 07:00 IntakeIntake Total 799.87 ml 2150 ml OutputOutput Total 650 ml 590 ml 470 ml BalanceBalance 149.87 ml 1560 ml -470 ml Exam Constitutional: alert, oriented Respiratory: clear to auscultation Cardiovascular: nl pulse Gastrointestinal: soft, non-tender Musculoskeletal: nl extremities to inspection Extremities: normal pulses Skin: nl turgor Results Results 24hrs Laboratory Tests Test 01/25/19 20:28 01/25/19 20:53 01/26/19 01:23 01/26/19 04:00 Sodium Level 137 135 Potassium Level 4.6 6.4 *H Chloride Level 113 H 112 H Carbon Dioxide Level 18 L 16 L Anion Gap 6 7 Blood Urea Nitrogen 26 H 24 H Creatinine 1.35 H 1.14 Est Glomerular > 60 > 60 Filtrat Rate mL/min Glucose Level 78 # 298 #H Calcium Level 8.4 8.3 L Phosphorus Level 3.3 3.1 Magnesium Level 1.6 L 1.5 L Bedside Glucose 78 253 H White Blood Count 4.9 # Red Blood Count 2.90 #L Hemoglobin 8.9 #L Hematocrit 26.1 #L Mean Corpuscular 90.0 Volume Mean Corpuscular 30.7 Hemoglobin Mean Corpuscular 34.1 Hemoglobin Concent Red Cell 13.3 Distribution Width Platelet Count 125 #L Mean Platelet Volume 12.9 H Immature 0.200 Granulocytes % Neutrophils % 48.2 Lymphocytes % 43.2 Monocytes % 7.4 Eosinophils % 1.0 Basophils % 0.0 Nucleated Red Blood 0.0 Cells % Immature 0.010 Granulocytes # Neutrophils # 2.4 Lymphocytes # 2.1 Monocytes # 0.4 Eosinophils # 0.1 Basophils # 0.0 Nucleated Red Blood 0.0 Cells # Test 01/26/19 06:33 01/26/19 07:29 01/26/19 12:08 White Blood Count 4.8 Red Blood Count 3.00 L Hemoglobin 9.1 L Hematocrit 27.6 L Mean Corpuscular 92.0 Volume Mean Corpuscular 30.3 Hemoglobin Mean Corpuscular 33.0 Hemoglobin Concent Red Cell 13.2 Distribution Width Platelet Count 133 L Mean Platelet Volume 12.2 H Immature 0.000 L Granulocytes % Neutrophils % 43.5 Lymphocytes % 45.7 Monocytes % 8.9 Eosinophils % 1.7 Basophils % 0.2 Nucleated Red Blood 0.0 Cells % Immature 0.000 Granulocytes # Neutrophils # 2.1 Lymphocytes # 2.2 Monocytes # 0.4 Eosinophils # 0.1 Basophils # 0.0 Nucleated Red Blood 0.0 Cells # Sodium Level 137 Potassium Level 4.9 Chloride Level 112 H Carbon Dioxide Level 17 L Anion Gap 8 Blood Urea Nitrogen 23 H Creatinine 1.12 Est Glomerular > 60 Filtrat Rate mL/min Glucose Level 275 H Calcium Level 8.6 Iron Level 52 Total Iron Binding 213 L Capacity Percent Iron 24 Saturation Vitamin B12 Level 726 Bedside Glucose 289 H 168 Medications Medication Current Medications Dextrose (D50w Syringe) 50 ml Q15M PRN IV For BS 50 or less; Start 01/24/19 at 21:30; Status Hold Dextrose (D50w Syringe) 25 ml Q15M PRN IV BS between 50-70; Start 01/24/19 at 21:30; Status Hold Miscellaneous Information (* Miscellaneous Pharmacy Order) HYPOGLYCEMIA TREATMENT HYPOGLYCEM PROTOCOL PRN XX Hypoglycemia (BS < 70); Start 01/24/19 at 21:30 Ondansetron HCl (Zofran Inj) 4 mg Q6H PRN IV NAUSEA AND/OR VOMITING Last administered on 01/24/19at 21:45; Admin Dose 4 MG; Start 01/24/19 at 21:30 Acetaminophen (Tylenol Liquid) 650 mg Q6H PRN PO PAIN LEVEL 1-3 OR FEVER; Start 01/24/19 at 21:30 Morphine Sulfate (morphine) 2 mg Q4H PRN IV PAIN LEVEL 7-10; Start 01/24/19 at 21:30 Famotidine (Pepcid Iv) 20 mg Q12 IV Last administered on 01/26/19at 07:56; Admin Dose 20 MG; Start 01/25/19 at 09:00 Enoxaparin Sodium (Lovenox) 30 mg DAILY SC Last administered on 01/26/19at 07:49; Admin Dose 30 MG; Start 01/25/19 at 09:00 Diagnostic Test (Pha) (Accu-Chek) 1 ea 02 XX ; Start 01/26/19 at 02:00 Insulin Glargine (Lantus) 18 units DAILY@0800 SC Last administered on 01/26/19at 07:45; Admin Dose 18 UNITS; Start 01/26/19 at 08:00 Insulin Aspart (Novolog Insulin Pen) 6 unit WITH MEALS SC Last administered on 01/26/19at 12:11; Admin Dose 6 UNIT; Start 01/25/19 at 11:30 Insulin Aspart (Novolog Insulin Pen) NOVOLOG *MILD* ALGORITHM WITH MEALS BEDTIME SC Last administered on 01/26/19at 12:13; Admin Dose 1 UNIT; Start 01/25/19 at 11:30 Miscellaneous Information 1 ea NOTE XX ; Start 01/25/19 at 14:00 Glucose (Glutose) 15 gm Q15M PRN PO DECREASED GLUCOSE; Start 01/25/19 at 14:00 Glucose (Glutose) 22.5 gm Q15M PRN PO DECREASED GLUCOSE; Start 01/25/19 at 14:00 Dextrose (D50w Syringe) 25 ml Q15M PRN IV DECREASED GLUCOSE; Start 01/25/19 at 14:00 Dextrose (D50w Syringe) 50 ml Q15M PRN IV DECREASED GLUCOSE; Start 01/25/19 at 14:00 Glucagon (Glucagen) 1 mg Q15M PRN IM DECREASED GLUCOSE; Start 01/25/19 at 14:00 Glucose (Glutose) 15 gm Q15M PRN BUCCAL DECREASED GLUCOSE; Start 01/25/19 at 14:00 Diagnostic Test (Pha) (Accu-Chek) 1 ea BEFORE MEALS XX Last administered on 01/25/19at 17:25; Admin Dose 1 EA; Start 01/25/19 at 17:30 Hydrocortisone (Cortef) 15 mg QAM PO Last administered on 01/26/19at 07:56; Admin Dose 15 MG; Start 01/26/19 at 09:00 Hydrocortisone (Cortef) 5 mg AC DINNER PO ; Start 01/26/19 at 17:05 Hydrocortisone (Cortef) 2.5 mg QHS PO Last administered on 01/25/19at 20:52; Admin Dose 2.5 MG; Start 01/25/19 at 21:00 RENALDO GONZALES January 26, 2019 17:28
[2019-01-26] MEDS ORDERED: MAGNESIUM SULFATE 2 GM/50 ML 50 ML IVPB ONE (18:30)
[2019-01-27] MEDS: ACCU-CHEK XX SCH ×4 (01:06→17:38)
[2019-01-27 03:05] VITALS: BP 95/56; PULSE 69; RESP 20
[2019-01-27] MEDS: INSULIN ASPART [NOVOLOG] 3 ML PEN SC SCH ×6 (08:00→18:04)
[2019-01-27] MEDS: ENOXAPARIN 30 MG/0.3 ML SYG SC SCH (08:15)
[2019-01-27] MEDS: INSULIN GLARGINE [LANTus] (100 UNITS/ML) SYG SC SCH (08:15)
[2019-01-27] MEDS: HYDROCORTISONE 5 MG TAB PO SCH ×2 (08:15→18:05)
[2019-01-27] MEDS: FAMOTIDINE 20 MG INJ IV SCH (08:19)
[2019-01-27 09:11] VITALS: BP 101/53; PULSE 57; RESP 18
[2019-01-27] MEDS ORDERED: MAGNESIUM SULFATE 2 GM/50 ML 50 ML IVPB ONE (09:30)
[2019-01-27 14:54] VITALS: BP 94/58; PULSE 49; RESP 18
[2019-01-27] MEDS ORDERED: LEVO50TA7 PO (17:04)
[2019-01-27] MEDS ORDERED: HYDR5TAB7 PO ×3 (17:04)
--- NOTE | 2019-01-27 17:27 | CONS ---
Assessment/Plan Assessment/Plan Problems: (1) DKA, type 1 Status: Resolved Comment: Out of DKA and fully resolved. Stable for discharge Qualifiers: Diabetes mellitus complication detail: without coma Qualified Codes: E10.10 - Type 1 diabetes mellitus with ketoacidosis without coma (2) Type 1 diabetes mellitus without complications Status: Chronic Comment: Very good control and please note that his A1c on admission was 6.3. (3) Adrenal insufficiency Status: Chronic Comment: Back on replacement therapy and stable (4) Hypothyroidism Status: Chronic Comment: Stable on treatment. Qualifiers: Hypothyroidism type: acquired Qualified Codes: E03.9 - Hypothyroidism, unspecified Consultation Date/Type/Reason Admit Date/Time January 24, 2019 at 20:39 Initial Consult Date 01/25/19 Type of Consult Endocrinology Reason for Consultation Diabetes mellitus type 1 with DKA; hypothyroidism; adrenal insufficiency; Requesting Provider: RENALDO GONZALES Date/Time of Note DATE: 01/27/19 TIME: 17:25 24 HR Interval Summary Free Text/Dictation Patient is feeling much better and has had full resolution of his DKA. Constitutional: no complaints Detailed Summary Endocrine: no complaints Exam/Review of Systems Exam Vitals Vital Signs Date Temp Pulse Resp B/P (MAP) Pulse Ox O2 O2 Flow FiO2 Time Delivery Rate 01/27/19 98.1 49 18 94/58 (70) 99 14:54 01/26/19 Room Air 14:00 Intake and Output 01/26/19 01/26/19 01/27/19 1515:00 23:00 07:00 IntakeIntake Total 240 ml 650 ml 500 ml BalanceBalance 240 ml 650 ml 500 ml Constitutional: alert, oriented Respiratory: clear to auscultation, normal air movement Cardiovascular: regular rate and rhythm, nl pulses Gastrointestinal: soft, nl liver, spleen, non-tender Results Result Diagram: 01/27/19 0554 01/27/19 0500 Results 24hrs Laboratory Tests Test 01/26/19 17:30 01/26/19 17:52 01/26/19 18:15 01/26/19 18:40 Bedside Glucose 58 L 76 127 133 Test 01/26/19 21:19 01/27/19 05:00 01/27/19 05:48 01/27/19 05:54 Bedside Glucose 140 Sodium Level 142 Potassium Level 3.9 Chloride Level 114 H Carbon Dioxide Level 20 L Anion Gap 8 Blood Urea Nitrogen 14 # Creatinine 0.88 Est Glomerular > 60 Filtrat Rate mL/min Glucose Level 142 # Calcium Level 8.7 Total Bilirubin 0.4 Direct Bilirubin 0.00 Indirect Bilirubin 0.4 Aspartate Amino 19 Transf (AST/SGOT) Alanine 17 Aminotransferase (AL T/SGPT) Alkaline Phosphatase 50 Total Protein 6.2 Albumin 3.2 L Globulin 3.00 Albumin/Globulin 1.06 Ratio Magnesium Level 1.6 L White Blood Count 5.4 Red Blood Count 3.23 L Hemoglobin 9.8 L Hematocrit 29.5 L Mean Corpuscular 91.3 Volume Mean Corpuscular 30.3 Hemoglobin Mean Corpuscular 33.2 Hemoglobin Concent Red Cell 13.1 Distribution Width Platelet Count 145 Mean Platelet Volume 12.3 H Immature 0.000 L Granulocytes % Neutrophils % 32.0 L Lymphocytes % 57.0 H Monocytes % 7.9 Eosinophils % 2.9 Basophils % 0.2 Nucleated Red Blood 0.0 Cells % Immature 0.000 Granulocytes # Neutrophils # 1.7 Lymphocytes # 3.1 H Monocytes # 0.4 Eosinophils # 0.2 Basophils # 0.0 Nucleated Red Blood 0.0 Cells # Test 01/27/19 07:48 01/27/19 11:57 01/27/19 12:21 01/27/19 12:38 Bedside Glucose 135 45 *L 76 129 Test 01/27/19 13:02 01/27/19 17:09 Bedside Glucose 161 101 Medications Medication Current Medications Dextrose (D50w Syringe) 50 ml Q15M PRN IV For BS 50 or less; Start 01/24/19 at 21:30; Status Hold Dextrose (D50w Syringe) 25 ml Q15M PRN IV BS between 50-70; Start 01/24/19 at 21:30; Status Hold Miscellaneous Information (* Miscellaneous Pharmacy Order) HYPOGLYCEMIA TREATMENT HYPOGLYCEM PROTOCOL PRN XX Hypoglycemia (BS < 70); Start 01/24/19 at 21:30 Ondansetron HCl (Zofran Inj) 4 mg Q6H PRN IV NAUSEA AND/OR VOMITING Last administered on 01/24/19at 21:45; Admin Dose 4 MG; Start 01/24/19 at 21:30 Acetaminophen (Tylenol Liquid) 650 mg Q6H PRN PO PAIN LEVEL 1-3 OR FEVER; Start 01/24/19 at 21:30 Morphine Sulfate (morphine) 2 mg Q4H PRN IV PAIN LEVEL 7-10; Start 01/24/19 at 21:30 Famotidine (Pepcid Iv) 20 mg Q12 IV Last administered on 01/27/19at 08:19; Admin Dose 20 MG; Start 01/25/19 at 09:00 Enoxaparin Sodium (Lovenox) 30 mg DAILY SC Last administered on 01/27/19at 08:15; Admin Dose 30 MG; Start 01/25/19 at 09:00 Diagnostic Test (Pha) (Accu-Chek) 1 ea 02 XX ; Start 01/26/19 at 02:00 Insulin Glargine (Lantus) 18 units DAILY@0800 SC Last administered on 01/27/19at 08:15; Admin Dose 18 UNITS; Start 01/26/19 at 08:00 Insulin Aspart (Novolog Insulin Pen) 6 unit WITH MEALS SC Last administered on 01/27/19at 13:25; Admin Dose 6 UNIT; Start 01/25/19 at 11:30 Insulin Aspart (Novolog Insulin Pen) NOVOLOG *MILD* ALGORITHM WITH MEALS BEDTIME SC Last administered on 01/27/19at 13:26; Admin Dose 1 UNIT; Start at 11:30 Miscellaneous Information 1 ea NOTE XX ; Start 01/25/19 at 14:00 Glucose (Glutose) 15 gm Q15M PRN PO DECREASED GLUCOSE Last administered on 01/26/19at 17:37; Admin Dose 15 GM; Start 01/25/19 at 14:00 Glucose (Glutose) 22.5 gm Q15M PRN PO DECREASED GLUCOSE; Start 01/25/19 at 14:00 Dextrose (D50w Syringe) 25 ml Q15M PRN IV DECREASED GLUCOSE; Start 01/25/19 at 14:00 Dextrose (D50w Syringe) 50 ml Q15M PRN IV DECREASED GLUCOSE; Start 01/25/19 at 14:00 Glucagon (Glucagen) 1 mg Q15M PRN IM DECREASED GLUCOSE; Start 01/25/19 at 14:00 Glucose (Glutose) 15 gm Q15M PRN BUCCAL DECREASED GLUCOSE; Start 01/25/19 at 14:00 Diagnostic Test (Pha) (Accu-Chek) 1 ea BEFORE MEALS XX Last administered on 01/27/19at 11:30; Admin Dose 1 EA; Start 01/25/19 at 17:30 Hydrocortisone (Cortef) 15 mg QAM PO Last administered on 01/27/19at 08:15; Admin Dose 15 MG; Start 01/26/19 at 09:00 Hydrocortisone (Cortef) 5 mg AC DINNER PO Last administered on 01/26/19at 17:34; Admin Dose 5 MG; Start 01/26/19 at 17:05 Hydrocortisone (Cortef) 2.5 mg QHS PO Last administered on 01/26/19at 21:21; Admin Dose 2.5 MG; Start 01/25/19 at 21:00 Epoetin Stephen-epbx (Retacrit (Non-Esrd)) 10,000 unit ONCE ONCE SC ; Start 01/27/19 at 17:30; Stop 01/27/19 at 17:31; Status JS WONG MD January 27, 2019 17:26
[2019-01-27] MEDS ORDERED: EPOETIN ALFA-EPBX (NON-ESRD 10,000 UNIT/ML VIAL SC ONE (17:30)
--- NOTE | 2019-01-28 15:07 | RADRPT ---
Vent Rate: 98 bpm RR Interval: 0 msec NV Interval: 164 msec QRS Duration: 156 msec QT Interval: 428 msec QTC Interval: 546 msec P-R-T Gove: 72 - 120 - 47 degrees Normal sinus rhythm Right bundle branch block Abnormal ECG Electronically Signed By: [facility]
--- NOTE | 2019-01-30 21:30 | DS ---
Date/Time of Note Date/Time of Note DATE: 01/30/19 TIME: 21:29 Discharge Summary Admission/Discharge Info Admit Date/Time January 24, 2019 at 20:39 Discharge Date/Time January 27, 2019 at 19:02 Patient Condition: Stable Hx of Present Illness The patient is 23-year-old male with adrenal insufficiency and diabetes mellitus type 1 managed with insulin via Omni pump. Patient presented to the emergency room last night with complaints of vomiting, generalized body weakness for 1 day, intermittent cough. Patient denies any chest pain denies shortness of breath denies diarrhea constipation denies dysuria. Patient stated that she has been compliant and had the insulin supply pump at home. Patient denies any alcohol or illicit drug use. Patient was diagnosed with diabetic ketoacidosis and was started on IV fluids as well as insulin drip and admitted for further evaluation and management to intensive care unit. Hospital Course Assessment/Plan - Diabetic ketoacidosis associated with type 1 diabetes mellitus, resolved. Continue Lantus and premeal Novolog. Dr. Hunter is following in endocrinology consultation. - Systemic inflammatory response syndrome secondary to DKA however will rule out infection will obtain influenza swab due to complaint of flulike symptoms. - Adrenal insufficiency. Continue hydrocortisone. - Hypothyroidism, continue Synthroid. Plan of care discussed with Dr. Ortiz. Home Meds Active Scripts Hydrocortisone (Hydrocortisone) 5 Mg Tablet, 2.5 MG PO QHS for 30 Days, TAB Prov:RENALDO GONZALES 01/27/19 Hydrocortisone (Hydrocortisone) 5 Mg Tablet, 15 MG PO QAM for 30 Days, TAB Prov:RENALDO GONZALES 01/27/19 Hydrocortisone (Hydrocortisone) 5 Mg Tablet, 5 MG PO AC DINNER for 30 Days, TAB Prov:RENALDO GONZALES 01/27/19 Levothyroxine Sodium* (Levothyroxine Sodium*) 50 Mcg Tablet, 50 MCG PO BEFORE BREAKFAST, #30 TAB Prov:RENALDO GONZALES 01/27/19 Reported Medications Insulin Lispro (Humalog) 100 Unit/1 Ml Cartridge, 8 UNIT SQ VIA A PUMP, EA 8 UNITS WITH EACH PUMP 01/24/19 Discontinued Reported Medications Insulin Lispro (Humalog) 100 Unit/1 Ml Cartridge, 0 SQ VIA A PUMP, EA PT USES A PUMP 06/06/18 Discontinued Scripts Hydrocortisone (Hydrocortisone) 5 Mg Tablet, 2.5 MG PO QHS for 30 Days, TAB Prov:RENALDO GONZALES 06/09/18 Hydrocortisone (Hydrocortisone) 5 Mg Tablet, 15 MG PO QAM for 30 Days, TAB Prov:RENALDO GONZALES 06/09/18 Hydrocortisone (Hydrocortisone) 5 Mg Tablet, 7.5 MG PO PC LUNCH for 30 Days, TAB Prov:RENALDO GONZALES 06/09/18 Follow-up Plan Follow-up with Dr. Hunter as an outpatient in 3 weeks. Primary Care Provider [facility] Time spent on discharge: > 30 minutes RENALDO GONZALES January 30, 2019 21:30
== END 2019-01-27 19:02 | disposition home or self-care (01) | DRG 638 ==
LOC: E/R 19:19 → ICU 20:39 → PP2 01-26 12:15
PROVIDERS: ADMIT Internal Medicine; ATTEND Internal Medicine
DX: E10.10 Type 1 diabetes mellitus with ketoacidosis without coma (principal); E27.40 Unspecified adrenocortical insufficiency; R65.10 Systemic inflammatory response syndrome (SIRS) of non-infectious origin without acute organ dysfunction; N17.9 Acute kidney failure, unspecified; E83.39 Other disorders of phosphorus metabolism; E83.42 Hypomagnesemia; E87.5 Hyperkalemia; Z96.41 Presence of insulin pump (external) (internal); E03.9 Hypothyroidism, unspecified; D64.9 Anemia, unspecified
CPT/HCPCS: 36415; 80048; 80053; 81001; 82607; 82803; 82962; 83036; 83540; 83735; 84100; 85025; 87081; 93005; 96374; J1650; J1720; J1815; J2405; J2765; J3475; J3480; J7030; J7040; J7120; Q5106